=== PATIENT | male | born 1950 | race Asian ===

== ENCOUNTER 2017-11-23 20:00 | Inpatient (IN) | payer MEDICAID ==
[~2017-11-23] VITALS: Ht 185.4 cm; Wt 72.6 kg
[2017-11-23 20:25] VITALS: BP 140/85
--- NOTE | 2017-11-23 21:07 | Emergency Room Report ---
History of Present Illness General Chief Complaint: Abnormal Labs Source: Medical Record, EMS Present Illness HPI 67 yo M with trach to oxygen, peg tube, sent in for low h/h. pt nonverbal unable to provide hx. full code Allergies: Coded Allergies: No Known Allergies (Unverified , 11/23/17) Patient History Past Medical History: see triage record Past Surgical History: unable to obtain Pertinent Family History: unable to obtain Reviewed Nursing Documentation: PMH: Agreed, PSxH: Agreed Nursing Documentation-PMH Hx Hypertension: Yes Hx Diabetes: Yes Hx Gastrointestinal Problems: Yes - GASTROSTOMY Review of Systems All Other Systems: limited - nonverbal Physical Exam Vital Signs Date Time Temp Pulse Resp B/P (MAP) Pulse Ox O2 Delivery O2 Flow Rate FiO2 11/23/17 20:07 98.1 85 22 140/85 95 Trach Collar 4.0 Sp02 EP Interpretation: reviewed, normal General Appearance: other - nonverbal, not resp, Chronically Ill Head: normocephalic, atraumatic Eyes: bilateral eye normal inspection, bilateral eye PERRL, bilateral eye EOMI ENT: other - +trach Neck: other - +trach Respiratory: normal breath sounds Cardiovascular #1: normal inspection, regular rate, rhythm, normal capillary refill Cardiovascular #2: 2+ radial (R), 2+ radial (L) Gastrointestinal: other - +peg tube in place, soft abdomen Musculoskeletal: normal inspection, back normal, normal range of motion, non- tender Neurologic: other - not responsive Skin: normal inspection, normal color, no rash, warm/dry, well hydrated, normal turgor Medical Decision Making Diagnostic Impression: Primary Impression: Severe anemia Additional Impressions: Hypokalemia Pancreatitis Renal abscess ER Course 67-year-old male brought in for low H&H DDX: Anemia: Iron deficient, anemia of chronic disease, GI bleed Plan: Obtain labs, ua, EKG, CXR Type and screen and blood transfusion ER course: Patient transfused prbcs in ED potassium supplemented CT ordered for elevated lipase showed possible pyelonephritis with renal abscess cefepime given Disposition: Patient is to be admitted to tele D/W hospitalist Dr Valdovinos Please note that this Emergency Department Report was dictated using [employer] booth attendant technology software, occasionally this can lead to erroneous entry secondary to interpretation by the dictation equipment. EKG Diagnostic Results EP Interpretation: Yes Rate: normal Rhythm: NSR ST Segments: TWI V3 ASA given to patient: No Rhythm Strip EP Interpretation: Yes Rate: 80 Rhythm: NSR, no PVCs, no ectopy Chest X-ray CXR: Ordered: Yes 1 view Indication: ams EP interpretation: Yes Interpretation: No consolidation, no effusion, no PTX, no acute cardiopulmonary disease Impression: No acute disease Electronically signed by Pedro Mendez MD Laboratory Tests Test 11/23/17 21:00 White Blood Count 15.5 K/UL (4.8-10.8) H Red Blood Count 2.54 M/UL (4.70-6.10) L Hemoglobin 7.8 G/DL (14.2-18.0) L Hematocrit 26.2 % (42.0-52.0) L Mean Corpuscular Volume 103 FL (80-99) H Mean Corpuscular Hemoglobin 30.5 PG (27.0-31.0) Mean Corpuscular Hemoglobin Concent 29.7 G/DL (32.0-36.0) L Red Cell Distribution Width 14.5 % (11.6-14.8) Platelet Count 699 K/UL (150-450) H Mean Platelet Volume 5.6 FL (6.5-10.1) L Neutrophils (%) (Auto) % (45.0-75.0) Lymphocytes (%) (Auto) % (20.0-45.0) Monocytes (%) (Auto) % (1.0-10.0) Eosinophils (%) (Auto) % (0.0-3.0) Basophils (%) (Auto) % (0.0-2.0) Differential Total Cells Counted 100 Neutrophils % (Manual) 78 % (45-75) H Lymphocytes % (Manual) 11 % (20-45) L Monocytes % (Manual) 8 % (1-10) Eosinophils % (Manual) 1 % (0-3) Basophils % (Manual) 0 % (0-2) Band Neutrophils 2 % (0-8) Platelet Estimate Increased H Platelet Morphology Normal Red Blood Cell Morphology Hypochromasia 2+ Anisocytosis 1+ Macrocytosis 1+ Prothrombin Time 11.0 SEC (9.30-11.50) Prothrombin Time INR 1.1 (0.9-1.1) PTT 25 SEC (23-33) Sodium Level 146 MMOL/L (136-145) H Potassium Level 2.9 MMOL/L (3.5-5.1) L Chloride Level 104 MMOL/L (98-107) Carbon Dioxide Level 35 MMOL/L (21-32) H Anion Gap 7 mmol/L (5-15) Blood Urea Nitrogen 28 mg/dL (7-18) H Creatinine 0.8 MG/DL (0.55-1.30) Estimate Glomerular Filtration Rate > 60 mL/min (>60) Glucose Level 131 MG/DL (74-106) H Calcium Level 9.2 MG/DL (8.5-10.1) Total Bilirubin 0.3 MG/DL (0.2-1.0) Aspartate Amino Transferase (AST) 59 U/L (15-37) H Alanine Aminotransferase (ALT) 153 U/L (12-78) H Alkaline Phosphatase 85 U/L (46-116) Troponin I 0.015 ng/mL (0.000-0.056) Pro-B-Type Natriuretic Peptide 425 pg/mL (0-125) H Total Protein 8.7 G/DL (6.4-8.2) H Albumin 2.7 G/DL (3.4-5.0) L Globulin 6.0 g/dL Albumin/Globulin Ratio 0.5 (1.0-2.7) L Lipase 3689 U/L (73-393) H CT/MRI/US Diagnostic Results CT/MRI/US Diagnostic Results : Imaging Test Ordered: CT abdo pelvis Impression CT ABDOMEN & PELVIS With Contrast: There is a 4.1 x 3.0 cm fluid collection within the left kidney, with mild perinephric fat stranding as well as ureteral and renal pelvic wall thickening. Findings most likely represent an ascending left urinary tract infection with pyelonephritis and a renal abscess. Please correlate with urinalysis and site of patient's pain. Several small calculi seen within the distal right ureter, near the right ureterovesical junction. There is minimal right-sided hydroureter as well as right ureteral wall thickening. These calculi are likely only partially obstructing. Additional small calculi seen within the bladder lumen, with moderate bladder wall thickening. Findings suggest a chronic or acute cystitis. Gastrostomy tube in place, with the tip in the distal gastric lumen. There is no evidence of bowel obstruction. Normal appendix. Mild wall thickening of the sigmoid colon and rectum. Findings suggestive of a proctocolitis. If patient had recent fecal disimpaction, this could represent a residual stercoral colitis. Alternatively if the patient had prior radiation therapy to the pelvis findings could represent a residual radiation colitis. Please correlate with patient's history. Limited evaluation of lower chest shows mild airspace consolidation in the left lower lobe. This may represent an early pneumonia or due to severe aspiration. No pleural effusions. Last Vital Signs Date Time Temp Pulse Resp B/P (MAP) Pulse Ox O2 Delivery O2 Flow Rate FiO2 11/23/17 20:07 98.1 85 22 140/85 95 Trach Collar 4.0 Disposition: ADMITTED INPATIENT Condition: Serious Pedro Mendez M.D. Nov 23, 2017 21:07
[2017-11-23 21:44] LABS: HEMATOCRIT 26.2 % (42.0-52.0); HEMOGLOBIN 7.8 G/DL (14.2-18.0); MEAN CORPUSCULAR VOLUME 103 FL (80-99); PLATELET COUNT 699 K/UL (150-450); RED BLOOD COUNT 2.54 M/UL (4.70-6.10); RED CELL DISTRIBUTION WIDTH 14.5 % (11.6-14.8); WHITE BLOOD COUNT 15.5 K/UL (4.8-10.8)
[2017-11-23 21:48] LABS: ANION GAP 7 mmol/L (5-15); BLOOD UREA NITROGEN 28 mg/dL (7-18); CALCIUM 9.2 MG/DL (8.5-10.1); CARBON DIOXIDE 35 MMOL/L (21-32); CHLORIDE 104 MMOL/L (98-107); CREATININE 0.8 MG/DL (0.55-1.30); INR 1.1 (0.9-1.1); POTASSIUM 2.9 MMOL/L (3.5-5.1); SODIUM 146 MMOL/L (136-145)
[2017-11-23 21:59] LABS: ALANINE AMINOTRANSFERASE 153 U/L (12-78); ALBUMIN 2.7 G/DL (3.4-5.0); ALBUMIN/GLOBULIN RATIO 0.5 (1.0-2.7); ALKALINE PHOSPHATASE 85 U/L (46-116); ASPARTATE AMINO TRANSFERASE 59 U/L (15-37); BILIRUBIN,TOTAL 0.3 MG/DL (0.2-1.0)
[2017-11-23 23:20] VITALS: BP 114/88
[2017-11-24] MEDS ORDERED: Cefepime 2gm ONE (02:56)
[2017-11-24 03:00] VITALS: BP 138/91
[2017-11-24] MEDS ORDERED: Cefepime HCl 2 GM in D5W 55 ML IVPB ONE (03:00)
[2017-11-24] MEDS ORDERED: CLONIDINE HCL0.1 MG GT (05:26)
[2017-11-24] MEDS ORDERED: DULCOLAX10 MG RC (05:26)
[2017-11-24] MEDS ORDERED: AMLODIPINE BESY10 MG GT (05:26)
[2017-11-24] MEDS ORDERED: MOM30 ML GT (05:26)
[2017-11-24] MEDS ORDERED: HYDRALAZINE HCL50 MG GT (05:26)
[2017-11-24] MEDS ORDERED: ZOFRAN4 MG GT (05:26)
[2017-11-24] MEDS ORDERED: LOPRESSOR25 M1 GT (05:26)
[2017-11-24] MEDS ORDERED: Miralax 17gm pkt ORAL PRN (07:00)
[2017-11-24] MEDS ORDERED: Mylanta II UD 30ml ORAL PRN (07:00)
[2017-11-24] MEDS ORDERED: Nitroglycerin Subl 0.4mg tab SL PRN (07:00)
[2017-11-24] MEDS ORDERED: Morphine Sulfate 2mg/ml Inj IVP PRN (07:00)
[2017-11-24] MEDS ORDERED: LORazepam Inj 2mg/ml 1ml IV PRN (07:00)
[2017-11-24] MEDS: D5 1/2NS 1,000 ML IV SCH ×2 (07:30→20:40)
[2017-11-24 08:00] VITALS: BP 103/63
[2017-11-24] MEDS: Heparin 5000 units/ml inj SUBQ SCH ×2 (09:00→21:00)
--- NOTE | 2017-11-24 09:32 | Diagnostic Imaging Report ---
Indication: Abdominal pain Technique: CT of the abdomen and pelvis utilizing automated exposure control with intravenous contrast. Venous scanning performed. CT dose: Total DLP 992.06 mGycm; CTDI vol 16.82 mGy Comparison: None Findings: There is a trace left pleural effusion. There is airspace consolidation in the left lower lobe. There may be some tree-in-bud opacities also in the left pleural fluid although this is somewhat limited due to motion artifact. There is no pericardial effusion. Gallbladder is mildly distended but otherwise unremarkable in appearance. No pericholecystic inflammatory change to suggest an acute cholecystitis. Liver is unremarkable and single phase examination. Hepatic veins and portal veins appear patent. Spleen and adrenal glands unremarkable. Pancreas with some dense calcifications in the pancreatic head and body, likely sequela of prior infection/inflammation. There is a 4.1 x 3 cm fluid collection within the left kidney with mild to moderate left perinephric fat stranding as well as thickening/enhancement of the urothelium of the renal pelvis and proximal left ureter. Subcentimeter stones noted at the distal right ureter, near the right UVJ. There is minimal right-sided hydroureter as well as right ureteral wall thickening. Is no hydronephrosis on the right. Small stones are noted layering dependently within the bladder lumen. There is moderate bladder wall thickening. Prostate appears mildly prominent, mildly heterogeneous with coarse calcifications. Gastrostomy tube is in place. There is no bowel obstruction. No free intraperitoneal air. There is mild wall thickening of the sigmoid colon and rectum. There is trace presacral inflammatory change. Abdominal aorta is normal in caliber. There are multilevel degenerative changes of the spine. Impression: Significant left perinephric fat stranding with a focal 4 x 3 cm fluid collection in the lower pole of the left kidney. Findings are concerning for pyelonephritis with renal abscess. No obstructing urinary tract stone noted on the left. Multiple small stones noted layering dependently in the bladder, which has a moderately thickened wall. Subcentimeter stones in the right distal ureter at or near the UVJ with minimal right-sided ureteral thickening/hydroureter. No evidence of hydronephrosis on the right.. These right-sided stones may be only partially obstructing. Correlation with physical exam findings/clinical history and with urinalysis/urine culture commended. Thickening of the rectum and sigmoid with minimal presacral infiltrative change. Findings suggestive of a proctocolitis. If patient has had fecal disimpaction recently, this could represent sequela of residual stercoral colitis. Alternatively these could resent sequela of prior radiation to the pelvis. Please correlate clinically. No evidence of bowel obstruction or free intraperitoneal air. Limited evaluation of the lower chest due to motion. Airspace consolidation in the lower lobe with suggestion of tree-in-bud opacities. These findings could represent pneumonia or aspiration. Additional findings as above. This corresponds with the statrad preliminary report. The CT scanner at [facility] is accredited by the [employer] and the scans are performed using protocols designed to limit radiation exposure to as low as reasonably achievable to attain images of sufficient resolution adequate for diagnostic evaluation.
[2017-11-24] MEDS: HydrALAZINE 50mg tab GT SCH ×2 (10:34→20:41)
[2017-11-24] MEDS: Pantoprazole Inj IV SCH (10:35)
--- NOTE | 2017-11-24 11:12 | Diagnostic Imaging Report ---
Indication: Chest pain Technique: XRAY Chest 1v Comparison: None Findings: Heart size within normal limits. Mediastinal contours are sharp. Tracheostomy tube in place. There is patchy left basilar opacity with slight blunting of the left costophrenic sulcus. There is no pneumothorax. Degenerative changes are seen in the spine. No acute osseous abnormality noted. Impression: Left basilar opacities and possible trace left pleural effusion. Although findings may be related to subsegmental atelectasis, pneumonia not entirely excluded. Clinical correlation and follow-up exam recommended. Study obtained via the emergency department however patient admitted to hospital at the time of dictation of the final report.
--- NOTE | 2017-11-24 11:16 | History and Physical ---
History of Present Illness General Date patient seen: Nov 24, 2017 Reason for Hospitalization: Abnormal Labs Present Illness HPI 67 yo M with trach to oxygen, peg tube, sent in for low h/h. pt nonverbal unable to provide hx. full code. He had a CT scan in ER showing perinephric abscess. He is admitted to [facility] for further work up. Allergies: Coded Allergies: No Known Allergies (Unverified , 11/23/17) Medication History Scheduled Amlodipine Besylate* (Amlodipine Besylate*), 10 MG GT DAILY, (Reported) Hydralazine Hcl* (Hydralazine Hcl*), 50 MG GT BID, (Reported) Metoprolol Tartrate (Metoprolol Tartrate), 50 MG GT EVERY 12 HOURS, (Reported) Scheduled PRN Magnesium Hydroxide (Milk of Magnesia), 30 ML GT DAILY PRN for Constipation, ( Reported) Ondansetron (Zofran), 4 MG GT Q6HR PRN for Nausea & Vomiting, (Reported) Miscellaneous Medications Bisacodyl (Dulcolax), 10 MG RC, (Reported) Clonidine Hcl (Clonidine Hcl), 0.1 MG GT, (Reported) Patient History Healthcare decision maker Resuscitation status Full Code Advanced Directive on File Past Medical/Surgical History Past Medical/Surgical History: (1) Status post tracheostomy (2) Feeding by G-tube Review of Systems All Other Systems: negative except mentioned in HPI Physical Exam General Appearance: WD/WN Lines, tubes and drains: peripheral HEENT: normocephalic, atraumatic Neck: non-tender, normal alignment, supple Respiratory/Chest: chest wall non-tender, lungs clear Breasts: no masses Cardiovascular/Chest: normal peripheral pulses Abdomen: normal bowel sounds, soft Genitourinary/Rectal: normal genital exam Extremities: normal range of motion, non-pitting Neurologic: control clerk auditing II-XII grossly normal Last 24 Hour Vital Signs Date Time Temp Pulse Resp B/P (MAP) Pulse Ox O2 Delivery O2 Flow Rate FiO2 11/24/17 10:34 121/74 11/24/17 10:33 88 103/63 11/24/17 08:32 88 11/24/17 08:00 98.2 89 20 103/63 98 Trach Collar 4.0 89 11/24/17 05:27 99.1 90 20 145/80 98 Trach Collar 4.0 81 11/24/17 04:48 99.1 103 20 11/24/17 03:00 98.1 90 20 138/91 98 Trach Collar 4.0 81 11/23/17 23:20 81 18 114/88 98 Trach Collar 4.0 11/23/17 20:25 98.1 85 22 140/85 95 Trach Collar 4.0 11/23/17 20:07 98.1 85 22 140/85 95 Trach Collar 4.0 Intake and Output 11/23/17 11/24/17 19:00 07:00 Intake Total 50 ml Output Total 0 ml Balance 50 ml Intake Free Water 50 ml Output Urine Total 0 ml # Bowel Movements 2 Laboratory Tests Test 11/23/17 21:00 11/24/17 04:00 White Blood Count 15.5 K/UL (4.8-10.8) H Red Blood Count 2.54 M/UL (4.70-6.10) L Hemoglobin 7.8 G/DL (14.2-18.0) L Hematocrit 26.2 % (42.0-52.0) L Mean Corpuscular Volume 103 FL (80-99) H Mean Corpuscular Hemoglobin 30.5 PG (27.0-31.0) Mean Corpuscular Hemoglobin Concent 29.7 G/DL (32.0-36.0) L Red Cell Distribution Width 14.5 % (11.6-14.8) Platelet Count 699 K/UL (150-450) H Mean Platelet Volume 5.6 FL (6.5-10.1) L Neutrophils (%) (Auto) % (45.0-75.0) Lymphocytes (%) (Auto) % (20.0-45.0) Monocytes (%) (Auto) % (1.0-10.0) Eosinophils (%) (Auto) % (0.0-3.0) Basophils (%) (Auto) % (0.0-2.0) Differential Total Cells Counted 100 Neutrophils % (Manual) 78 % (45-75) H Lymphocytes % (Manual) 11 % (20-45) L Monocytes % (Manual) 8 % (1-10) Eosinophils % (Manual) 1 % (0-3) Basophils % (Manual) 0 % (0-2) Band Neutrophils 2 % (0-8) Platelet Estimate Increased H Platelet Morphology Normal Red Blood Cell Morphology Hypochromasia 2+ Anisocytosis 1+ Macrocytosis 1+ Prothrombin Time 11.0 SEC (9.30-11.50) Prothromb Time International Ratio 1.1 (0.9-1.1) Activated Partial Thromboplast Time 25 SEC (23-33) Sodium Level 146 MMOL/L (136-145) H Potassium Level 2.9 MMOL/L (3.5-5.1) L Chloride Level 104 MMOL/L (98-107) Carbon Dioxide Level 35 MMOL/L (21-32) H Anion Gap 7 mmol/L (5-15) Blood Urea Nitrogen 28 mg/dL (7-18) H Creatinine 0.8 MG/DL (0.55-1.30) Estimat Glomerular Filtration Rate > 60 mL/min (>60) Glucose Level 131 MG/DL (74-106) H Calcium Level 9.2 MG/DL (8.5-10.1) Total Bilirubin 0.3 MG/DL (0.2-1.0) Aspartate Amino Transf (AST/SGOT) 59 U/L (15-37) H Alanine Aminotransferase (ALT/SGPT) 153 U/L (12-78) H Alkaline Phosphatase 85 U/L (46-116) Troponin I 0.015 ng/mL (0.000-0.056) Pro-B-Type Natriuretic Peptide 425 pg/mL (0-125) H Total Protein 8.7 G/DL (6.4-8.2) H Albumin 2.7 G/DL (3.4-5.0) L Globulin 6.0 g/dL Albumin/Globulin Ratio 0.5 (1.0-2.7) L Lipase 3689 U/L (73-393) H Lactic Acid Level 1.50 mmol/L (0.66-2.22) Height (Feet): 6 Height (Inches): 1.00 Weight (Pounds): 160 Medications Current Medications Medications (Trade) Dose Ordered Sig/Sara Route PRN Reason Start Time Stop Time Status Last Admin Dose Admin Acetaminophen (Tylenol) 650 mg Q4H PRN ORAL fever (temp > 100.5F) 11/24/17 07:00 12/24/17 06:59 Al Hydroxide/Mg Hydroxide (Mylanta II) 30 ml Q6H PRN ORAL dyspepsia 11/24/17 07:00 12/24/17 06:59 Amlodipine Besylate (Norvasc) 10 mg DAILY GT 11/24/17 09:00 12/24/17 08:59 11/24/17 10:33 Clonidine HCl (Catapres Tab) 0.1 mg Q8H PRN GT SBP greater than 160 11/24/17 09:00 12/24/17 08:59 Dextrose (Dextrose 50%) STAT PRN IV Hypoglycemia 11/24/17 07:00 12/24/17 06:59 Dextrose/Sodium Chloride 1,000 ml @ 75 mls/hr [id number] IV 11/24/17 07:30 12/24/17 07:29 Diphenhydramine HCl (Benadryl) 25 mg Q6H PRN ORAL Itching/Pruritis 11/24/17 07:00 12/24/17 06:59 Heparin Sodium (Porcine) (Heparin 5000 units/ml) 5,000 units EVERY 12 HOURS SUBQ 11/24/17 09:00 12/24/17 08:59 Hydralazine HCl (Apresoline) 50 mg Q12HR GT 11/24/17 09:00 12/24/17 08:59 11/24/17 10:34 Lorazepam (Ativan 2mg/ml 1ml) 1 mg Q4H PRN IV agitation 11/24/17 07:00 12/01/17 06:59 Morphine Sulfate (Morphine Sulfate) 2 mg Q4H PRN IVP severe Pain (Pain Scale 7-10) 11/24/17 07:00 12/01/17 06:59 Nitroglycerin (Ntg) 0.4 mg Q5M X 3 DOSES PRN SL Prn Chest Pain 11/24/17 07:00 12/24/17 06:59 Ondansetron HCl (Zofran) 4 mg Q6H PRN IVP Nausea & Vomiting 11/24/17 07:00 12/24/17 06:59 Pantoprazole (Protonix) 40 mg DAILY IV 11/24/17 09:00 12/24/17 08:59 11/24/17 10:35 Polyethylene Glycol (Miralax) 17 gm HSPRN PRN ORAL Constipation 11/24/17 07:00 12/24/17 06:59 Promethazine HCl (Phenergan) 25 mg Q8H PRN IV refractory nausea 11/24/17 07:00 12/24/17 06:59 Temazepam (Restoril) 15 mg HSPRN PRN ORAL Insomnia 11/24/17 07:00 12/01/17 06:59 Assessment/Plan Problem List: (1) Renal abscess ICD Codes: N15.1 - Renal and perinephric abscess SNOMED: 5731392 (2) Hypokalemia ICD Codes: E87.6 - Hypokalemia SNOMED: 10103843 (3) Severe anemia ICD Codes: D64.9 - Anemia, unspecified SNOMED: 634560928 (4) Pancreatitis ICD Codes: K85.90 - Acute pancreatitis without necrosis or infection, unspecified SNOMED: 34889431 (5) Feeding by G-tube ICD Codes: Z93.1 - Gastrostomy status SNOMED: 326488056, 032988339 (6) Status post tracheostomy ICD Codes: Z93.0 - Tracheostomy status SNOMED: 39295523, 555169970 Respiratory: monitor respiratory rate, adjust FIO2, CXR Cardiac: continue pressors, continue to monitor HR/BP Renal: F/U I&O, keep IV fluid Infectious Disease: check cultures, continue antibiotics Gastrointestinal: continue feedings/current rate, hold feedings Endocrine: monitor blood sugar, check TSH, check HgA1C, continue sliding scale insulin Hematologic: monitor H/H, transfuse if hgb<8.5 Neurologic: PRN Morphine, keep patient comfortable Affect: PRN ativan Time Spent (Minutes): 40 Discussed with: nurses, consultants, family independence case manager ISELA LIM Nov 24, 2017 11:16
[2017-11-24 12:00] VITALS: BP 106/65
--- NOTE | 2017-11-24 12:38 | Consultation ---
History of Present Illness General Date patient seen: Nov 24, 2017 Time patient seen: 12:37 Chief Complaint: Abnormal Labs Present Illness HPI 67 y/o M with hx of HTN, chronic resp failure on trach, s/p PEG, non verbal is brought to ED on 11/23 with low hemoglobin. Found to have perinephric abscess. afebrile. leukocytosis up to 15.5 Allergies: Coded Allergies: No Known Allergies (Unverified , 11/23/17) Medication History Scheduled Amlodipine Besylate* (Amlodipine Besylate*), 10 MG GT DAILY, (Reported) Hydralazine Hcl* (Hydralazine Hcl*), 50 MG GT BID, (Reported) Metoprolol Tartrate (Metoprolol Tartrate), 50 MG GT EVERY 12 HOURS, (Reported) Scheduled PRN Magnesium Hydroxide (Milk of Magnesia), 30 ML GT DAILY PRN for Constipation, ( Reported) Ondansetron (Zofran), 4 MG GT Q6HR PRN for Nausea & Vomiting, (Reported) Miscellaneous Medications Bisacodyl (Dulcolax), 10 MG RC, (Reported) Clonidine Hcl (Clonidine Hcl), 0.1 MG GT, (Reported) Patient History Healthcare decision maker Resuscitation status Full Code Advanced Directive on File Patient History Narrative PHx: as above SH: unable to obtain Fhx: non contributory Review of Systems ROS Narrative unable to obtain Physical Exam Physical Exam Narrative General Appearance: WD/WN Lines, tubes and drains: peripheral HEENT: normocephalic, atraumatic Neck: non-tender, normal alignment, supple Respiratory/Chest: chest wall non-tender, lungs clear Breasts: no masses Cardiovascular/Chest: normal peripheral pulses Abdomen: normal bowel sounds, soft Extremities: normal range of motion, non-pitting Last 24 Hour Vital Signs Date Time Temp Pulse Resp B/P (MAP) Pulse Ox O2 Delivery O2 Flow Rate FiO2 11/24/17 10:34 121/74 11/24/17 10:33 88 103/63 11/24/17 08:32 88 11/24/17 08:00 98.2 89 20 103/63 98 Trach Collar 4.0 89 11/24/17 05:27 99.1 90 20 145/80 98 Trach Collar 4.0 81 11/24/17 04:48 99.1 103 20 11/24/17 03:00 98.1 90 20 138/91 98 Trach Collar 4.0 81 11/23/17 23:20 81 18 114/88 98 Trach Collar 4.0 11/23/17 20:25 98.1 85 22 140/85 95 Trach Collar 4.0 11/23/17 20:07 98.1 85 22 140/85 95 Trach Collar 4.0 Intake and Output 11/23/17 11/24/17 19:00 07:00 Intake Total 50 ml Output Total 0 ml Balance 50 ml Intake Free Water 50 ml Output Urine Total 0 ml # Bowel Movements 2 Laboratory Tests Test 11/23/17 21:00 11/24/17 04:00 White Blood Count 15.5 K/UL (4.8-10.8) H Red Blood Count 2.54 M/UL (4.70-6.10) L Hemoglobin 7.8 G/DL (14.2-18.0) L Hematocrit 26.2 % (42.0-52.0) L Mean Corpuscular Volume 103 FL (80-99) H Mean Corpuscular Hemoglobin 30.5 PG (27.0-31.0) Mean Corpuscular Hemoglobin Concent 29.7 G/DL (32.0-36.0) L Red Cell Distribution Width 14.5 % (11.6-14.8) Platelet Count 699 K/UL (150-450) H Mean Platelet Volume 5.6 FL (6.5-10.1) L Neutrophils (%) (Auto) % (45.0-75.0) Lymphocytes (%) (Auto) % (20.0-45.0) Monocytes (%) (Auto) % (1.0-10.0) Eosinophils (%) (Auto) % (0.0-3.0) Basophils (%) (Auto) % (0.0-2.0) Differential Total Cells Counted 100 Neutrophils % (Manual) 78 % (45-75) H Lymphocytes % (Manual) 11 % (20-45) L Monocytes % (Manual) 8 % (1-10) Eosinophils % (Manual) 1 % (0-3) Basophils % (Manual) 0 % (0-2) Band Neutrophils 2 % (0-8) Other Cell Type Pathologist comment Platelet Estimate Increased H Platelet Morphology Normal Red Blood Cell Morphology Hypochromasia 2+ Anisocytosis 1+ Macrocytosis 1+ Prothrombin Time 11.0 SEC (9.30-11.50) Prothromb Time International Ratio 1.1 (0.9-1.1) Activated Partial Thromboplast Time 25 SEC (23-33) Sodium Level 146 MMOL/L (136-145) H Potassium Level 2.9 MMOL/L (3.5-5.1) L Chloride Level 104 MMOL/L (98-107) Carbon Dioxide Level 35 MMOL/L (21-32) H Anion Gap 7 mmol/L (5-15) Blood Urea Nitrogen 28 mg/dL (7-18) H Creatinine 0.8 MG/DL (0.55-1.30) Estimat Glomerular Filtration Rate > 60 mL/min (>60) Glucose Level 131 MG/DL (74-106) H Calcium Level 9.2 MG/DL (8.5-10.1) Total Bilirubin 0.3 MG/DL (0.2-1.0) Aspartate Amino Transf (AST/SGOT) 59 U/L (15-37) H Alanine Aminotransferase (ALT/SGPT) 153 U/L (12-78) H Alkaline Phosphatase 85 U/L (46-116) Troponin I 0.015 ng/mL (0.000-0.056) Pro-B-Type Natriuretic Peptide 425 pg/mL (0-125) H Total Protein 8.7 G/DL (6.4-8.2) H Albumin 2.7 G/DL (3.4-5.0) L Globulin 6.0 g/dL Albumin/Globulin Ratio 0.5 (1.0-2.7) L Lipase 3689 U/L (73-393) H Lactic Acid Level 1.50 mmol/L (0.66-2.22) Height (Feet): 6 Height (Inches): 1.00 Weight (Pounds): 160 Medications Current Medications Medications (Trade) Dose Ordered Sig/Sara Route PRN Reason Start Time Stop Time Status Last Admin Dose Admin Acetaminophen (Tylenol) 650 mg Q4H PRN ORAL fever (temp > 100.5F) 11/24/17 07:00 12/24/17 06:59 Al Hydroxide/Mg Hydroxide (Mylanta II) 30 ml Q6H PRN ORAL dyspepsia 11/24/17 07:00 12/24/17 06:59 Amlodipine Besylate (Norvasc) 10 mg DAILY GT 11/24/17 09:00 12/24/17 08:59 11/24/17 10:33 Clonidine HCl (Catapres Tab) 0.1 mg Q8H PRN GT SBP greater than 160 11/24/17 09:00 12/24/17 08:59 Dextrose (Dextrose 50%) STAT PRN IV Hypoglycemia 11/24/17 07:00 12/24/17 06:59 Dextrose/Sodium Chloride 1,000 ml @ 75 mls/hr [id number] IV 11/24/17 07:30 12/24/17 07:29 11/24/17 07:30 Diphenhydramine HCl (Benadryl) 25 mg Q6H PRN ORAL Itching/Pruritis 11/24/17 07:00 12/24/17 06:59 Heparin Sodium (Porcine) (Heparin 5000 units/ml) 5,000 units EVERY 12 HOURS SUBQ 11/24/17 09:00 12/24/17 08:59 Hydralazine HCl (Apresoline) 50 mg Q12HR GT 11/24/17 09:00 12/24/17 08:59 11/24/17 10:34 Lorazepam (Ativan 2mg/ml 1ml) 1 mg Q4H PRN IV agitation 11/24/17 07:00 12/01/17 06:59 Morphine Sulfate (Morphine Sulfate) 2 mg Q4H PRN IVP severe Pain (Pain Scale 7-10) 11/24/17 07:00 12/01/17 06:59 Nitroglycerin (Ntg) 0.4 mg Q5M X 3 DOSES PRN SL Prn Chest Pain 11/24/17 07:00 12/24/17 06:59 Ondansetron HCl (Zofran) 4 mg Q6H PRN IVP Nausea & Vomiting 11/24/17 07:00 12/24/17 06:59 Pantoprazole (Protonix) 40 mg DAILY IV 11/24/17 09:00 12/24/17 08:59 11/24/17 10:35 Polyethylene Glycol (Miralax) 17 gm HSPRN PRN ORAL Constipation 11/24/17 07:00 12/24/17 06:59 Promethazine HCl (Phenergan) 25 mg Q8H PRN IV refractory nausea 11/24/17 07:00 12/24/17 06:59 Temazepam (Restoril) 15 mg HSPRN PRN ORAL Insomnia 11/24/17 07:00 12/01/17 06:59 Assessment/Plan Assessment/Plan Abx: IV Cefepime x1 11/24 Assessment: L pyelonephritis w/ abscess; ?proctocolitis- -CT abd/p: Significant left perinephric fat stranding with a focal 4 x 3 cm fluid collection in the lower pole of the left kidney. Findings are concerning for pyelonephritis with renal abscess. No obstructing urinary tract stone noted on the left. Multiple small stones noted layering dependently in the bladder, which has a moderately thickened wall. Subcentimeter stones in the right distal ureter at or near the UVJ with minimal right-sided ureteral thickening/hydroureter. No evidence of hydronephrosis on the right.. These right-sided stones may be only partially obstructing. Correlation with physical exam findings/clinical history and with urinalysis/urine culture commended. Thickening of the rectum and sigmoid with minimal presacral infiltrative change. Findings suggestive of a proctocolitis. If patient has had fecal disimpaction recently, this could represent sequela of residual stercoral colitis. Alternatively these could resent sequela of prior radiation to the pelvis. Please correlate clinically. No evidence of bowel obstruction or free intraperitoneal air. Airspace consolidation in the lower lobe with suggestion of tree-in-bud opacities. These findings could represent pneumonia or aspiration. -Bcx p -u/a p Possible PNA vs aspiration pneumonitis -CXR: Left basilar opacities and possible trace left pleural effusion. Although findings may be related to subsegmental atelectasis, pneumonia not entirely excluded. Leukocytosis- 2ry to above -afebrile Elevated lipase- ?pancreatitis -CT abd/p: Pancreas with some dense calcifications in the pancreatic head and body, likely sequela of prior infection/inflammation. HTN, chronic resp failure on trach, s/p PEG, non verbal Plan: -Start Zosyn for renal abscess and possible proctocolitis and PNA pending ucx -if worsening fevers, leukocytosis or resp status, add IV Vancomycin -IR drainage of L renal abscess -Uro consult -f/u cx -Monitor CBC/BMP, temperatures -obtain sputum cx -Aspiration precautions -Trach/peg care Thank you for this consultation. Will continue to follow along with you. Discussed with MANUEL. Yeimi Chanel M.D. Nov 24, 2017 12:38
--- NOTE | 2017-11-24 13:43 | GI Initial Consult Note ---
Radha Fournier N.P. 11/24/17 1343: History of Present Illness General Date patient seen: Nov 24, 2017 Time patient seen: 13:00 Reason for Hospitalization: Abnormal Labs Referring physician: ISELA RODRIGUEZ Reason for Consultation: ANEMiA Present Illness HPI 67 yo M with trach to oxygen, peg tube, sent in for low h/h. pt nonverbal unable to provide hx. full code GI consulted for anemia. HPI noted above. ROS limited, pt unable to provide any history. Seen on floor awake, NAD with active s/sx of N/V/D. GT present, C /D/I no erythema noted. CT AP reviewed, see full report, suggestive of proctocolitis. No evidence of bowel obstruction. Presents today with anemia low Hgb, transaminitis and pancreatitis. Unknown history of endoscopies / colonoscopies. Home Meds Reported Medications Ondansetron (Zofran) 4 Mg Tablet, 4 MG GT Q6HR Y for Nausea & Vomiting, #10 TAB 0 Refills 11/24/17 Magnesium Hydroxide (Milk of Magnesia) 400 Mg/5 Ml Oral.susp, 30 ML GT DAILY Y for Constipation, ML 11/24/17 Metoprolol Tartrate (Metoprolol Tartrate) 25 Mg Tablet, 50 MG GT EVERY 12 HOURS , TAB 11/24/17 Hydralazine Hcl* (HYDRALAZINE HCL*) 50 Mg Tablet, 50 MG GT BID, TAB 11/24/17 Bisacodyl (DULCOLAX) 10 Mg Supp.rect, 10 MG RC, SUPP 11/24/17 Clonidine Hcl (CLONIDINE HCL) 0.1 Mg Tablet, 0.1 MG GT, TAB 11/24/17 Amlodipine Besylate* (AMLODIPINE BESYLATE*) 10 Mg Tablet, 10 MG GT DAILY, TAB 11/24/17 Med list reviewed/reconciled: Yes Allergies: Coded Allergies: No Known Allergies (Unverified , 11/23/17) Patient History Limited by: medical condition History Provided By: Medical Record PMH Narrative Past Medical History: see triage record Past Surgical History: unable to obtain Pertinent Family History: unable to obtain Reviewed Nursing Documentation: PMH: Agreed, PSxH: Agreed Nursing Documentation-PMH Hx Hypertension: Yes Hx Diabetes: Yes Hx Gastrointestinal Problems: Yes - GASTROSTOMY Social History: Denies: smoking, alcohol use, drug use, other Review of Systems All Other Systems: limited Physical Exam Vital Signs Date Time Temp Pulse Resp B/P (MAP) Pulse Ox O2 Delivery O2 Flow Rate FiO2 11/23/17 20:07 98.1 85 22 140/85 95 Trach Collar 4.0 Sp02 EP Interpretation: reviewed Labs Laboratory Tests Test 11/23/17 21:00 11/24/17 04:00 White Blood Count 15.5 K/UL (4.8-10.8) H Red Blood Count 2.54 M/UL (4.70-6.10) L Hemoglobin 7.8 G/DL (14.2-18.0) L Hematocrit 26.2 % (42.0-52.0) L Mean Corpuscular Volume 103 FL (80-99) H Mean Corpuscular Hemoglobin 30.5 PG (27.0-31.0) Mean Corpuscular Hemoglobin Concent 29.7 G/DL (32.0-36.0) L Red Cell Distribution Width 14.5 % (11.6-14.8) Platelet Count 699 K/UL (150-450) H Mean Platelet Volume 5.6 FL (6.5-10.1) L Neutrophils (%) (Auto) % (45.0-75.0) Lymphocytes (%) (Auto) % (20.0-45.0) Monocytes (%) (Auto) % (1.0-10.0) Eosinophils (%) (Auto) % (0.0-3.0) Basophils (%) (Auto) % (0.0-2.0) Differential Total Cells Counted 100 Neutrophils % (Manual) 78 % (45-75) H Lymphocytes % (Manual) 11 % (20-45) L Monocytes % (Manual) 8 % (1-10) Eosinophils % (Manual) 1 % (0-3) Basophils % (Manual) 0 % (0-2) Band Neutrophils 2 % (0-8) Other Cell Type Pathologist comment Platelet Estimate Increased H Platelet Morphology Normal Red Blood Cell Morphology Hypochromasia 2+ Anisocytosis 1+ Macrocytosis 1+ Prothrombin Time 11.0 SEC (9.30-11.50) Prothromb Time International Ratio 1.1 (0.9-1.1) Activated Partial Thromboplast Time 25 SEC (23-33) Sodium Level 146 MMOL/L (136-145) H Potassium Level 2.9 MMOL/L (3.5-5.1) L Chloride Level 104 MMOL/L (98-107) Carbon Dioxide Level 35 MMOL/L (21-32) H Anion Gap 7 mmol/L (5-15) Blood Urea Nitrogen 28 mg/dL (7-18) H Creatinine 0.8 MG/DL (0.55-1.30) Estimat Glomerular Filtration Rate > 60 mL/min (>60) Glucose Level 131 MG/DL (74-106) H Calcium Level 9.2 MG/DL (8.5-10.1) Total Bilirubin 0.3 MG/DL (0.2-1.0) Aspartate Amino Transf (AST/SGOT) 59 U/L (15-37) H Alanine Aminotransferase (ALT/SGPT) 153 U/L (12-78) H Alkaline Phosphatase 85 U/L (46-116) Troponin I 0.015 ng/mL (0.000-0.056) Pro-B-Type Natriuretic Peptide 425 pg/mL (0-125) H Total Protein 8.7 G/DL (6.4-8.2) H Albumin 2.7 G/DL (3.4-5.0) L Globulin 6.0 g/dL Albumin/Globulin Ratio 0.5 (1.0-2.7) L Lipase 3689 U/L (73-393) H Lactic Acid Level 1.50 mmol/L (0.66-2.22) General Appearance: no apparent distress Head: normocephalic EENT: normal ENT inspection Neck: supple Respiratory: other - trached Cardiovascular: normal rate Gastrointestinal: gt - c/d/i Rectal: deferred Neurologic: alert Skin: normal inspection, normal color, no rash, warm/dry Lymphatic: normal inspection, no adenopathy Current Medications Current Medications Medications (Trade) Dose Ordered Sig/Sara Route PRN Reason Start Time Stop Time Status Last Admin Dose Admin Acetaminophen (Tylenol) 650 mg Q4H PRN ORAL fever (temp > 100.5F) 11/24/17 07:00 12/24/17 06:59 Al Hydroxide/Mg Hydroxide (Mylanta II) 30 ml Q6H PRN ORAL dyspepsia 11/24/17 07:00 12/24/17 06:59 Amlodipine Besylate (Norvasc) 10 mg DAILY GT 11/24/17 09:00 12/24/17 08:59 11/24/17 10:33 Clonidine HCl (Catapres Tab) 0.1 mg Q8H PRN GT SBP greater than 160 11/24/17 09:00 12/24/17 08:59 Dextrose (Dextrose 50%) STAT PRN IV Hypoglycemia 11/24/17 07:00 12/24/17 06:59 Dextrose/Sodium Chloride 1,000 ml @ 75 mls/hr [id number] IV 11/24/17 07:30 12/24/17 07:29 11/24/17 07:30 Diphenhydramine HCl (Benadryl) 25 mg Q6H PRN ORAL Itching/Pruritis 11/24/17 07:00 12/24/17 06:59 Heparin Sodium (Porcine) (Heparin 5000 units/ml) 5,000 units EVERY 12 HOURS SUBQ 11/24/17 09:00 12/24/17 08:59 Hydralazine HCl (Apresoline) 50 mg Q12HR GT 11/24/17 09:00 12/24/17 08:59 11/24/17 10:34 Lorazepam (Ativan 2mg/ml 1ml) 1 mg Q4H PRN IV agitation 11/24/17 07:00 12/01/17 06:59 Morphine Sulfate (Morphine Sulfate) 2 mg Q4H PRN IVP severe Pain (Pain Scale 7-10) 11/24/17 07:00 12/01/17 06:59 Nitroglycerin (Ntg) 0.4 mg Q5M X 3 DOSES PRN SL Prn Chest Pain 11/24/17 07:00 12/24/17 06:59 Ondansetron HCl (Zofran) 4 mg Q6H PRN IVP Nausea & Vomiting 11/24/17 07:00 12/24/17 06:59 Pantoprazole (Protonix) 40 mg DAILY IV 11/24/17 09:00 12/24/17 08:59 11/24/17 10:35 Piperacillin Sod/ Tazobactam Sod 4.5 gm/Sodium Chloride 110 ml @ 27.5 mls/hr EVERY 8 HOURS IVPB 11/24/17 14:00 11/29/17 13:59 Polyethylene Glycol (Miralax) 17 gm HSPRN PRN ORAL Constipation 11/24/17 07:00 2 06:59 Promethazine HCl (Phenergan) 25 mg Q8H PRN IV refractory nausea 11/24/17 07:00 12/24/17 06:59 Temazepam (Restoril) 15 mg HSPRN PRN ORAL Insomnia 11/24/17 07:00 12/01/17 06:59 GI: Plan Problems: (1) Feeding by G-tube (2) Severe anemia (3) Pancreatitis Plan CT AP reviewed, see full report. >> suggestive of a proctocolitis. No evidence of bowel obstruction or free intraperitoneal air. elevated lipase >> +3000 anemia work up >> will consider GI procedures if indicated OB stool r/o GI bleed monitor H&H, prn transfusions bowel rest >> NPO + IVFs bowel regime >> colace + miralax ppi fu labs, lipid panel Discussed with Dr. Waller. Thank you for this patient referral, we will follow. MELANIA WALLER 11/25/17 0752: History of Present Illness General Reason for Hospitalization: Abnormal Labs Present Illness Home Meds Reported Medications Ondansetron (Zofran) 4 Mg Tablet, 4 MG GT Q6HR Y for Nausea & Vomiting, #10 TAB 0 Refills 11/24/17 Magnesium Hydroxide (Milk of Magnesia) 400 Mg/5 Ml Oral.susp, 30 ML GT DAILY Y for Constipation, ML 11/24/17 Metoprolol Tartrate (Metoprolol Tartrate) 25 Mg Tablet, 50 MG GT EVERY 12 HOURS , TAB 11/24/17 Hydralazine Hcl* (HYDRALAZINE HCL*) 50 Mg Tablet, 50 MG GT BID, TAB 11/24/17 Bisacodyl (DULCOLAX) 10 Mg Supp.rect, 10 MG RC, SUPP 11/24/17 Clonidine Hcl (CLONIDINE HCL) 0.1 Mg Tablet, 0.1 MG GT, TAB 11/24/17 Amlodipine Besylate* (AMLODIPINE BESYLATE*) 10 Mg Tablet, 10 MG GT DAILY, TAB 11/24/17 Allergies: Coded Allergies: No Known Allergies (Unverified , 11/23/17) GI: Plan Plan The patient was seen and examined at bedside and all new and available data was reviewed in the patients chart. I agree with the above findings, impression and plan. (Patient seen earlier today. Signature stamp does not reflect patient encounter time.). - MD Irlanda Barnes Anh [facility] Nov 24, 2017 13:43 MELANIA WALLER Nov 25, 2017 07:52
[2017-11-24] MEDS: Piperacillin/Tazobactam 4.5 GM in NS 110 ML IVPB SCH ×2 (14:33→22:35)
[2017-11-24 16:00] VITALS: BP 127/75
[2017-11-24 17:42] LABS: APPEARANCE,URINE CLEAR; BILIRUBIN, URINE NEGATIVE (NEGATIVE); GLUCOSE, URINE (UA) NEGATIVE (NEGATIVE); KETONES,URINE NEGATIVE (NEGATIVE); LEUKOCYTE ESTERASE ,URINE 3+ (NEGATIVE); NITRITE,URINE POSITIVE (NEGATIVE); PH,URINE 7 (4.5-8.0); PROTEIN,URINE 2+ (NEGATIVE); UROBILINOGEN,URINE NORMAL MG/DL (0.0-1.0)
--- NOTE | 2017-11-24 17:42 | Diagnostic Imaging Report ---
Indication: Abdominal Technique: Multiplanar grayscale and color Doppler imaging of the abdomen Comparison: Correlation made to concurrent abdominal CT Findings: Limited evaluation given body habitus and inability to cooperate with positioning. Pancreas, spleen and aorta are not well seen due to habitus or overlying bowel gas. Portions of the PEG tube partially visualized. Right lower liver measures 15 cm. Hepatic echogenicity is homogeneous. Gallbladder is mildly distended. Gallbladder wall within normal limits for thickness. No pericholecystic fluid. Common bile duct measures 7.7 mm diameter. No appreciable intrahepatic biliary duct dilatation. Right kidney has some small simple renal cysts. Parenchymal echogenicity is within normal limits. Vague hypodensity in the lower pole the left kidney measuring 4.4 x 3.2 cm noted. This corresponds with the abnormality noted on CT. There may be some slight vascularity/hyperemia in this region. Impression: Limited evaluation due to patient body habitus and inability to cooperate with exam positioning. Vague hypodensity in the lower pole the left kidney measuring up to 4.4 cm corresponding to the region of the suspected renal abscess seen on CT.
[2017-11-24 17:43] LABS: COLOR,URINE YELLOW
[2017-11-24 20:00] VITALS: BP 136/77
--- NOTE | 2017-11-24 20:31 | Wound Care Consultation ---
Wound Assessment Wound Assessment : Wound Number: 1 Wound Present on Admission: Yes New Wound: No Status Change of Wound: No Wound Location Body Site Modif: mid Wound Location Body Site: other - sacrococcygeal Wound Type: pressure ulcer Mary Test: Does not Mary Pressure Ulcer Stage: Unstageable Wound Thickness: Full Thickness Wound Length: 10.0 Wound Width: 8.5 Wound Depth: utd Percent of Wound [place]/Red: 30 Percent of Wound Bed Yellow/Wh: 50 Percent of Wound Purple/Maroon: 20 Wound Drainage Description: Serosanguineous Wound Drainage Amount: Moderate Wound Drainage Odor: None/Absent Tissue Surrounding Wound: Macerated Wound General Appearance: Reddened - yellow,maroon Wound Comment #1 Sacrococcygeal unstageable pressure ulcer Recommendation -Local wound care per protocol -Keep clean and dry -Turn and reposition -Optimize nutrition -Heel protector on both heels -Offload both heels -Low air loss P200 mattress -Assess and f/u accordingly for any changes RASHEED LOCKWOOD RN Nov 24, 2017 20:31
--- NOTE | 2017-11-24 23:01 | Consultation ---
DATE OF CONSULTATION: 11/24/2017 REASON FOR CONSULTATION: Left pyelonephritis with possible abscess. HISTORY OF PRESENT ILLNESS: The patient is a 67-year-old male with history of hypertension and chronic respiratory failure with a PEG on the trach. He had a CT scan done in the ER that shows left possible perinephric abscess with left nephronia. He was admitted to the hospital because of his mental status and also respiratory status. I was not able to obtain his medical history or review of symptoms. He is on magnesium hydroxide and Zofran. PAST MEDICAL HISTORY: Please refer to the records. PAST SURGICAL HISTORY: Unable to obtain. FAMILY HISTORY: Unable to obtain. PHYSICAL EXAMINATION: GENERAL: He is afebrile. VITAL SIGNS: Stable. ABDOMEN: Soft and nontender. No significant CVA tenderness. Suprapubic area is intact. RECTAL: Negative. NEUROLOGIC: As above. LABORATORY AND DIAGNOSTIC DATA: CT scan was reviewed as well as the report showing fluid collection approximately 3 cm in the lower pole of the left kidney, no evidence of obstructing stone, some small stones in the bladder, as well as possible microlith in the right ureter without hydronephrosis. Laboratory data was also reviewed showing white count of 15, hematocrit is 26.2. Creatinine is 0.8. ASSESSMENT AND PLAN: The patient has left pyelonephritis. I would recommend intravenous antibiotics. No surgical intervention at this point. We will follow this patient with you and we will follow his white count as well as his overall status. Jaswant Joyce M.D. DR: RONALDO JOB#: [id number] CC:
[2017-11-25] VITALS (8 sets, daily range): BP systolic 132–145; BP diastolic 73–81
[2017-11-25 05:37] LABS: BASOPHILS % (AUTO) 0.4 % (0.0-2.0); EOSINOPHILS % (AUTO) 0.4 % (0.0-3.0); HEMATOCRIT 29.4 % (42.0-52.0); HEMOGLOBIN 9.5 G/DL (14.2-18.0); LYMPHOCYTES % (AUTO) 10.8 % (20.0-45.0); MEAN CORPUSCULAR VOLUME 96 FL (80-99); MONOCYTES % (AUTO) 5.1 % (1.0-10.0); NEUTROPHILS % (AUTO) 83.4 % (45.0-75.0); PLATELET COUNT 568 K/UL (150-450); RED BLOOD COUNT 3.07 M/UL (4.70-6.10); RED CELL DISTRIBUTION WIDTH 17.1 % (11.6-14.8)
[2017-11-25] MEDS: Piperacillin/Tazobactam 4.5 GM in NS 110 ML IVPB SCH ×3 (05:40→20:44)
[2017-11-25 05:51] LABS: ALANINE AMINOTRANSFERASE 79 U/L (12-78); ALBUMIN 2.5 G/DL (3.4-5.0); ALBUMIN/GLOBULIN RATIO 0.5 (1.0-2.7); ALKALINE PHOSPHATASE 73 U/L (46-116); AMYLASE 51 U/L (25-115); ANION GAP 8 mmol/L (5-15); ASPARTATE AMINO TRANSFERASE 21 U/L (15-37); BILIRUBIN,TOTAL 0.6 MG/DL (0.2-1.0); BLOOD UREA NITROGEN 21 mg/dL (7-18); CALCIUM 8.8 MG/DL (8.5-10.1); CARBON DIOXIDE 32 MMOL/L (21-32); CHLORIDE 110 MMOL/L (98-107); CREATININE 0.8 MG/DL (0.55-1.30); SODIUM 151 MMOL/L (136-145)
[2017-11-25 06:02] LABS: INR 1.2 (0.9-1.1)
[2017-11-25 06:04] LABS: % IRON SATURATION 14 % (15-50); IRON 24 ug/dL (50-175); TOTAL IRON BINDING CAPACITY 173 ug/dL (250-450)
[2017-11-25 06:19] LABS: POTASSIUM 2.3 MMOL/L (3.5-5.1)
[2017-11-25 06:20] LABS: CHOLESTEROL 121 MG/DL (< 200); FERRITIN 466 NG/ML (8-388); HDL CHOLESTEROL 27 MG/DL (40-60); TRIGLYCERIDES 131 MG/DL (30-150)
[2017-11-25] MEDS: Heparin 5000 units/ml inj SUBQ SCH ×2 (08:24→20:47)
[2017-11-25] MEDS: Pantoprazole Inj IV SCH (08:24)
[2017-11-25] MEDS: HydrALAZINE 50mg tab GT SCH ×2 (08:24→20:44)
[2017-11-25] MEDS: D5 1/2NS 1,000 ML IV SCH (09:51)
--- NOTE | 2017-11-25 12:03 | Diagnostic Imaging Report ---
Indication: Dyspnea Comparison: 11/23/2017 A single view chest radiograph was obtained. Findings: Tracheostomy again noted. Heart size is normal. Minimal basilar atelectasis demonstrated. Bones are osteopenic. IMPRESSION: Mild basal atelectasis
--- NOTE | 2017-11-25 12:54 | Pulmonolgy Critical Care Note ---
Critical Care - Asmt/Plan Problems: (1) Pyelonephritis (2) Severe anemia (3) Feeding by G-tube (4) Status post tracheostomy Critical Care - Objective Last 24 Hour Vital Signs Date Time Temp Pulse Resp B/P (MAP) Pulse Ox O2 Delivery O2 Flow Rate FiO2 11/25/17 08:24 138/78 11/25/17 08:24 92 138/78 11/25/17 08:00 98.5 92 19 138/78 99 T-piece 40 11/25/17 08:00 89 11/25/17 07:41 98 T-piece 10.0 40 11/25/17 07:41 T-piece 10.0 40 11/25/17 04:00 99.6 88 20 138/74 99 T-piece 11/25/17 04:00 87 11/25/17 01:47 99.8 11/25/17 01:24 98 T-piece 10.0 40 11/25/17 01:23 T-piece 10.0 40 11/25/17 00:59 101.0 108 28 132/73 96 T-piece 11/25/17 00:00 101.0 108 28 132/73 96 T-piece 11/25/17 00:00 115 11/24/17 20:41 149/79 11/24/17 20:25 96 T-piece 10.0 40 11/24/17 20:25 T-piece 10.0 40 11/24/17 20:00 102 11/24/17 20:00 99.1 102 24 136/77 98 T-piece 11/24/17 16:00 99.0 98 20 127/75 98 Trach Collar 4.0 11/24/17 15:27 94 Status: awake Condition: critical, grave Lungs: clear, chest wall tender Heart: HR/BP stable, HR/BP unstable, regular Abdomen: soft, non-tender, active bowel sounds Extremities: edema Micro: Microbiology Date/Time Source Procedure Growth Status 11/24/17 04:01 Blood Blood Culture - Preliminary NO GROWTH AFTER 24 HOURS Resulted 11/24/17 04:01 Blood Blood Culture - Preliminary NO GROWTH AFTER 24 HOURS Resulted 11/24/17 15:00 Sputum Induced Gram Stain Pending Resulted 11/24/17 15:00 Sputum Induced Sputum Culture - Preliminary Resulted 11/24/17 04:30 Rectum VRE Culture - Final Enterococcus Faecalis - Vre Complete Critical Care - Subjective ROS Limited/Unobtainable: No Interval Events: No GI bleeding, now has diarrhia Condition: critical EKG Rhythm: Sinus Rhythm FI02: 40 Fluids: NS 75 cc. hour I&O: Intake and Output 11/24/17 11/25/17 19:00 07:00 Intake Total 635.0 ml 1537.5 ml Output Total 601 ml 801 ml Balance 34.0 ml 736.5 ml Intake Free Water 50 ml 650 ml IV Total 335.0 ml 887.5 ml Blood Product 250 ml Output Urine Total 600 ml 800 ml Stool Total 1 ml 1 ml # Bowel Movements 3 1 CXR: no change Labs: Laboratory Tests Test 11/24/17 16:50 11/24/17 17:00 11/25/17 04:20 Stool Occult Blood Negative (NEGATIVE) Urine Color Yellow Urine Appearance Clear Urine pH 7 (4.5-8.0) Urine Specific [place] 1.010 (1.005-1.035) Urine Protein 2+ (NEGATIVE) H Urine Glucose (UA) Negative (NEGATIVE) Urine Ketones Negative (NEGATIVE) Urine Occult Blood 2+ (NEGATIVE) H Urine Nitrite Positive (NEGATIVE) H Urine Bilirubin Negative (NEGATIVE) Urine Urobilinogen Normal MG/DL (0.0-1.0) Urine Leukocyte Esterase 3+ (NEGATIVE) H Urine RBC 2-4 /HPF (0 - 0) H Urine WBC 5-10 /HPF (0 - 0) H Urine Squamous Epithelial Cells None /LPF (NONE/OCC) Urine Amorphous Sediment Few /LPF (NONE) H Urine Bacteria Few /HPF (NONE) White Blood Count 13.0 K/UL (4.8-10.8) H Red Blood Count 3.07 M/UL (4.70-6.10) L Hemoglobin 9.5 G/DL (14.2-18.0) L Hematocrit 29.4 % (42.0-52.0) L Mean Corpuscular Volume 96 FL (80-99) Mean Corpuscular Hemoglobin 30.9 PG (27.0-31.0) Mean Corpuscular Hemoglobin Concent 32.3 G/DL (32.0-36.0) Red Cell Distribution Width 17.1 % (11.6-14.8) H Platelet Count 568 K/UL (150-450) H Mean Platelet Volume 6.2 FL (6.5-10.1) L Neutrophils (%) (Auto) 83.4 % (45.0-75.0) H Lymphocytes (%) (Auto) 10.8 % (20.0-45.0) L Monocytes (%) (Auto) 5.1 % (1.0-10.0) Eosinophils (%) (Auto) 0.4 % (0.0-3.0) Basophils (%) (Auto) 0.4 % (0.0-2.0) Reticulocyte Count Pending Prothrombin Time 12.4 SEC (9.30-11.50) H Prothromb Time International Ratio 1.2 (0.9-1.1) H Activated Partial Thromboplast Time 31 SEC (23-33) Sodium Level 151 MMOL/L (136-145) H Potassium Level 2.3 MMOL/L (3.5-5.1) *L Chloride Level 110 MMOL/L (98-107) H Carbon Dioxide Level 32 MMOL/L (21-32) Anion Gap 8 mmol/L (5-15) Blood Urea Nitrogen 21 mg/dL (7-18) H Creatinine 0.8 MG/DL (0.55-1.30) Estimat Glomerular Filtration Rate > 60 mL/min (>60) Glucose Level 147 MG/DL (74-106) H Calcium Level 8.8 MG/DL (8.5-10.1) Iron Level 24 ug/dL (50-175) L Total Iron Binding Capacity 173 ug/dL (250-450) L Percent Iron Saturation 14 % (15-50) L Unsaturated Iron Binding 149 ug/dL (112-346) Ferritin 466 NG/ML (8-388) H Total Bilirubin 0.6 MG/DL (0.2-1.0) Aspartate Amino Transf (AST/SGOT) 21 U/L (15-37) Alanine Aminotransferase (ALT/SGPT) 79 U/L (12-78) H Alkaline Phosphatase 73 U/L (46-116) Pro-B-Type Natriuretic Peptide 446 pg/mL (0-125) H Total Protein 7.9 G/DL (6.4-8.2) Albumin 2.5 G/DL (3.4-5.0) L Globulin 5.4 g/dL Albumin/Globulin Ratio 0.5 (1.0-2.7) L Triglycerides Level 131 MG/DL (30-150) Cholesterol Level 121 MG/DL (< 200) LDL Cholesterol 75 mg/dL (<100) HDL Cholesterol 27 MG/DL (40-60) L Cholesterol/HDL Ratio 4.5 (3.3-4.4) H Amylase Level 51 U/L (25-115) Lipase 189 U/L (73-393) Vitamin B12 Level 1198 PG/ML (193-986) H Folate 19.9 NG/ML (8.6-58.9) Thyroid Stimulating Hormone (TSH) 0.062 uiU/mL (0.358-3.740) Free Thyroxine 1.20 NG/DL (0.76-1.46) ISELA LIM Nov 25, 2017 12:54
--- NOTE | 2017-11-25 13:15 | GI Progress Note ---
Assessment/Plan Problems: (1) Feeding by G-tube ICD Codes: Z93.1 - Gastrostomy status SNOMED: 598484527, 740965094 (2) Severe anemia ICD Codes: D64.9 - Anemia, unspecified SNOMED: 457462063 (3) Pancreatitis ICD Codes: K85.90 - Acute pancreatitis without necrosis or infection, unspecified SNOMED: 92606973 Status: stable Status Narrative Discussed with Dr. Mercedes. Assessment/Plan CT AP reviewed, see full report. >> suggestive of a proctocolitis. No evidence of bowel obstruction or free intraperitoneal air. abdominal U/S reviewed, see full report >> renal abscess elevated lipase >> +3000 >> now normal lipid panel for pancreatitis unremarkable OB stool r/o GI bleed >> negative anemia work up >> will consider GI procedures if indicated start venofer monitor H&H, prn transfusions restart GTFs bowel regime >> colace + miralax ppi fu labs Subjective Gastrointestinal/Abdominal: Reports: no symptoms Objective Last 24 Hour Vital Signs Date Time Temp Pulse Resp B/P (MAP) Pulse Ox O2 Delivery O2 Flow Rate FiO2 11/25/17 12:00 98.7 88 18 138/76 99 T-piece 40 11/25/17 08:24 138/78 11/25/17 08:24 92 138/78 11/25/17 08:00 98.5 92 19 138/78 99 T-piece 40 11/25/17 08:00 89 11/25/17 07:41 98 T-piece 10.0 40 11/25/17 07:41 T-piece 10.0 40 11/25/17 04:00 99.6 88 20 138/74 99 T-piece 11/25/17 04:00 87 11/25/17 01:47 99.8 11/25/17 01:24 98 T-piece 10.0 40 11/25/17 01:23 T-piece 10.0 40 11/25/17 00:59 101.0 108 28 132/73 96 T-piece 11/25/17 00:00 101.0 108 28 132/73 96 T-piece 11/25/17 00:00 115 11/24/17 20:41 149/79 11/24/17 20:25 96 T-piece 10.0 40 11/24/17 20:25 T-piece 10.0 40 11/24/17 20:00 102 11/24/17 20:00 99.1 102 24 136/77 98 T-piece 11/24/17 16:00 99.0 98 20 127/75 98 Trach Collar 4.0 11/24/17 15:27 94 Intake and Output 11/24/17 11/25/17 19:00 07:00 Intake Total 635.0 ml 1537.5 ml Output Total 601 ml 801 ml Balance 34.0 ml 736.5 ml Intake Free Water 50 ml 650 ml IV Total 335.0 ml 887.5 ml Blood Product 250 ml Output Urine Total 600 ml 800 ml Stool Total 1 ml 1 ml # Bowel Movements 3 1 Laboratory Tests Test 11/24/17 16:50 11/24/17 17:00 11/25/17 04:20 Stool Occult Blood Negative (NEGATIVE) Urine Color Yellow Urine Appearance Clear Urine pH 7 (4.5-8.0) Urine Specific [place] 1.010 (1.005-1.035) Urine Protein 2+ (NEGATIVE) H Urine Glucose (UA) Negative (NEGATIVE) Urine Ketones Negative (NEGATIVE) Urine Occult Blood 2+ (NEGATIVE) H Urine Nitrite Positive (NEGATIVE) H Urine Bilirubin Negative (NEGATIVE) Urine Urobilinogen Normal MG/DL (0.0-1.0) Urine Leukocyte Esterase 3+ (NEGATIVE) H Urine RBC 2-4 /HPF (0 - 0) H Urine WBC 5-10 /HPF (0 - 0) H Urine Squamous Epithelial Cells None /LPF (NONE/OCC) Urine Amorphous Sediment Few /LPF (NONE) H Urine Bacteria Few /HPF (NONE) White Blood Count 13.0 K/UL (4.8-10.8) H Red Blood Count 3.07 M/UL (4.70-6.10) L Hemoglobin 9.5 G/DL (14.2-18.0) L Hematocrit 29.4 % (42.0-52.0) L Mean Corpuscular Volume 96 FL (80-99) Mean Corpuscular Hemoglobin 30.9 PG (27.0-31.0) Mean Corpuscular Hemoglobin Concent 32.3 G/DL (32.0-36.0) Red Cell Distribution Width 17.1 % (11.6-14.8) H Platelet Count 568 K/UL (150-450) H Mean Platelet Volume 6.2 FL (6.5-10.1) L Neutrophils (%) (Auto) 83.4 % (45.0-75.0) H Lymphocytes (%) (Auto) 10.8 % (20.0-45.0) L Monocytes (%) (Auto) 5.1 % (1.0-10.0) Eosinophils (%) (Auto) 0.4 % (0.0-3.0) Basophils (%) (Auto) 0.4 % (0.0-2.0) Reticulocyte Count 2.7 % (0.0-2.0) H Prothrombin Time 12.4 SEC (9.30-11.50) H Prothromb Time International Ratio 1.2 (0.9-1.1) H Activated Partial Thromboplast Time 31 SEC (23-33) Sodium Level 151 MMOL/L (136-145) H Potassium Level 2.3 MMOL/L (3.5-5.1) *L Chloride Level 110 MMOL/L (98-107) H Carbon Dioxide Level 32 MMOL/L (21-32) Anion Gap 8 mmol/L (5-15) Blood Urea Nitrogen 21 mg/dL (7-18) H Creatinine 0.8 MG/DL (0.55-1.30) Estimat Glomerular Filtration Rate > 60 mL/min (>60) Glucose Level 147 MG/DL (74-106) H Calcium Level 8.8 MG/DL (8.5-10.1) Iron Level 24 ug/dL (50-175) L Total Iron Binding Capacity 173 ug/dL (250-450) L Percent Iron Saturation 14 % (15-50) L Unsaturated Iron Binding 149 ug/dL (112-346) Ferritin 466 NG/ML (8-388) H Total Bilirubin 0.6 MG/DL (0.2-1.0) Aspartate Amino Transf (AST/SGOT) 21 U/L (15-37) Alanine Aminotransferase (ALT/SGPT) 79 U/L (12-78) H Alkaline Phosphatase 73 U/L (46-116) Pro-B-Type Natriuretic Peptide 446 pg/mL (0-125) H Total Protein 7.9 G/DL (6.4-8.2) Albumin 2.5 G/DL (3.4-5.0) L Globulin 5.4 g/dL Albumin/Globulin Ratio 0.5 (1.0-2.7) L Triglycerides Level 131 MG/DL (30-150) Cholesterol Level 121 MG/DL (< 200) LDL Cholesterol 75 mg/dL (<100) HDL Cholesterol 27 MG/DL (40-60) L Cholesterol/HDL Ratio 4.5 (3.3-4.4) H Amylase Level 51 U/L (25-115) Lipase 189 U/L (73-393) Vitamin B12 Level 1198 PG/ML (193-986) H Folate 19.9 NG/ML (8.6-58.9) Thyroid Stimulating Hormone (TSH) 0.062 uiU/mL (0.358-3.740) Free Thyroxine 1.20 NG/DL (0.76-1.46) Microbiology Date/Time Source Procedure Growth Status 11/24/17 15:00 Sputum Induced Gram Stain Pending Resulted 11/24/17 15:00 Sputum Induced Sputum Culture - Preliminary Resulted Height (Feet): 6 Height (Inches): 1.00 Weight (Pounds): 160 General Appearance: no apparent distress, alert Cardiovascular: normal rate Respiratory/Chest: normal breath sounds, no respiratory distress, other - trach Abdominal Exam: normal bowel sounds, non tender, soft, GT site Extremities: non-tender Radha Fournier N.P. Nov 25, 2017 13:15 MELANIA MERCEDES Nov 26, 2017 09:13
[2017-11-25] MEDS: NS w/KCl 40mEq 1,000 ML IV SCH ×2 (15:12→18:30)
--- NOTE | 2017-11-25 15:57 | Infectious Diseases Prog Note ---
Assessment/Plan Assessment/Plan Abx: IV Cefepime x1 11/24 Zosyn 11/24- Assessment: L pyelonephritis w/ abscess; ?proctocolitis- -CT abd/p: Significant left perinephric fat stranding with a focal 4 x 3 cm fluid collection in the lower pole of the left kidney. Findings are concerning for pyelonephritis with renal abscess. No obstructing urinary tract stone noted on the left. Multiple small stones noted layering dependently in the bladder, which has a moderately thickened wall. Subcentimeter stones in the right distal ureter at or near the UVJ with minimal right-sided ureteral thickening/hydroureter. No evidence of hydronephrosis on the right.. These right-sided stones may be only partially obstructing. Correlation with physical exam findings/clinical history and with urinalysis/urine culture commended. Thickening of the rectum and sigmoid with minimal presacral infiltrative change. Findings suggestive of a proctocolitis. If patient has had fecal disimpaction recently, this could represent sequela of residual stercoral colitis. Alternatively these could resent sequela of prior radiation to the pelvis. Please correlate clinically. No evidence of bowel obstruction or free intraperitoneal air. Airspace consolidation in the lower lobe with suggestion of tree-in-bud opacities. These findings could represent pneumonia or aspiration. -Bcx NTD -u/a wbc 5-10,nit+, leuk +3; ucx p Possible PNA vs aspiration pneumonitis -CXR: Left basilar opacities and possible trace left pleural effusion. Although findings may be related to subsegmental atelectasis, pneumonia not entirely excluded. -sp cx p Leukocytosis, improving- 2ry to above Fever Elevated lipase- ?pancreatitis -CT abd/p: Pancreas with some dense calcifications in the pancreatic head and body, likely sequela of prior infection/inflammation. HTN, chronic resp failure on trach, s/p PEG, non verbal Plan: -Continue Zosyn #2 for renal abscess and possible proctocolitis and PNA pending cx ; will need IV abx tx for 4-6 weeks -if worsening fevers, leukocytosis or resp status, add IV Vancomycin -Discussed with IR Doctor given patient vent and difficult positioning and abscess <5mc and HD stable, will hold on IR intervention -low treshold for IR drainage if worsenign fevers/leukocytosis, HD instability -Uro f/u -f/u cx -Monitor CBC/BMP, temperatures -Aspiration precautions -Trach/peg care Thank you for this consultation. Will continue to follow along with you. Discussed with RN. Subjective Allergies: Coded Allergies: No Known Allergies (Unverified , 11/23/17) Subjective febrile to 101, currently afebrile leukocytosis improving Bcx NTD Objective Vital Signs Last 24 Hour Vital Signs Date Time Temp Pulse Resp B/P (MAP) Pulse Ox O2 Delivery O2 Flow Rate FiO2 11/25/17 13:33 T-piece 10.0 40 11/25/17 13:32 99 T-piece 10.0 40 11/25/17 12:00 98.7 88 18 138/76 99 T-piece 40 11/25/17 12:00 87 11/25/17 08:24 138/78 11/25/17 08:24 92 138/78 11/25/17 08:00 98.5 92 19 138/78 99 T-piece 40 11/25/17 08:00 89 11/25/17 07:41 98 T-piece 10.0 40 11/25/17 07:41 T-piece 10.0 40 11/25/17 04:00 99.6 88 20 138/74 99 T-piece 11/25/17 04:00 87 11/25/17 01:47 99.8 11/25/17 01:24 98 T-piece 10.0 40 11/25/17 01:23 T-piece 10.0 40 11/25/17 00:59 101.0 108 28 132/73 96 T-piece 11/25/17 00:00 101.0 108 28 132/73 96 T-piece 11/25/17 00:00 115 11/24/17 20:41 149/79 11/24/17 20:25 96 T-piece 10.0 40 11/24/17 20:25 T-piece 10.0 40 11/24/17 20:00 102 11/24/17 20:00 99.1 102 24 136/77 98 T-piece 11/24/17 16:00 99.0 98 20 127/75 98 Trach Collar 4.0 Height (Feet): 6 Height (Inches): 1.00 Weight (Pounds): 160 Objective General Appearance: WD/WN Lines, tubes and drains: peripheral HEENT: normocephalic, atraumatic Neck: non-tender, normal alignment, supple Respiratory/Chest: chest wall non-tender, lungs clear Breasts: no masses Cardiovascular/Chest: normal peripheral pulses Abdomen: normal bowel sounds, soft Extremities: normal range of motion, non-pitting Microbiology Date/Time Source Procedure Growth Status 11/24/17 04:01 Blood Blood Culture - Preliminary NO GROWTH AFTER 24 HOURS Resulted 11/24/17 04:01 Blood Blood Culture - Preliminary NO GROWTH AFTER 24 HOURS Resulted 11/24/17 15:00 Sputum Induced Gram Stain - Final Resulted 11/24/17 15:00 Sputum Induced Sputum Culture - Preliminary Resulted 11/24/17 15:00 Sacral Wound Gram Stain - Final Resulted 11/24/17 15:00 Sacral Wound Wound Culture Pending Resulted 11/24/17 04:30 Rectum VRE Culture - Final Enterococcus Faecalis - Vre Complete Laboratory Tests Test 11/24/17 16:50 11/24/17 17:00 11/25/17 04:20 Stool Occult Blood Negative (NEGATIVE) Urine Color Yellow Urine Appearance Clear Urine pH 7 (4.5-8.0) Urine Specific [place] 1.010 (1.005-1.035) Urine Protein 2+ (NEGATIVE) H Urine Glucose (UA) Negative (NEGATIVE) Urine Ketones Negative (NEGATIVE) Urine Occult Blood 2+ (NEGATIVE) H Urine Nitrite Positive (NEGATIVE) H Urine Bilirubin Negative (NEGATIVE) Urine Urobilinogen Normal MG/DL (0.0-1.0) Urine Leukocyte Esterase 3+ (NEGATIVE) H Urine RBC 2-4 /HPF (0 - 0) H Urine WBC 5-10 /HPF (0 - 0) H Urine Squamous Epithelial Cells None /LPF (NONE/OCC) Urine Amorphous Sediment Few /LPF (NONE) H Urine Bacteria Few /HPF (NONE) White Blood Count 13.0 K/UL (4.8-10.8) H Red Blood Count 3.07 M/UL (4.70-6.10) L Hemoglobin 9.5 G/DL (14.2-18.0) L Hematocrit 29.4 % (42.0-52.0) L Mean Corpuscular Volume 96 FL (80-99) Mean Corpuscular Hemoglobin 30.9 PG (27.0-31.0) Mean Corpuscular Hemoglobin Concent 32.3 G/DL (32.0-36.0) Red Cell Distribution Width 17.1 % (11.6-14.8) H Platelet Count 568 K/UL (150-450) H Mean Platelet Volume 6.2 FL (6.5-10.1) L Neutrophils (%) (Auto) 83.4 % (45.0-75.0) H Lymphocytes (%) (Auto) 10.8 % (20.0-45.0) L Monocytes (%) (Auto) 5.1 % (1.0-10.0) Eosinophils (%) (Auto) 0.4 % (0.0-3.0) Basophils (%) (Auto) 0.4 % (0.0-2.0) Reticulocyte Count 2.7 % (0.0-2.0) H Prothrombin Time 12.4 SEC (9.30-11.50) H Prothromb Time International Ratio 1.2 (0.9-1.1) H Activated Partial Thromboplast Time 31 SEC (23-33) Sodium Level 151 MMOL/L (136-145) H Potassium Level 2.3 MMOL/L (3.5-5.1) *L Chloride Level 110 MMOL/L (98-107) H Carbon Dioxide Level 32 MMOL/L (21-32) Anion Gap 8 mmol/L (5-15) Blood Urea Nitrogen 21 mg/dL (7-18) H Creatinine 0.8 MG/DL (0.55-1.30) Estimat Glomerular Filtration Rate > 60 mL/min (>60) Glucose Level 147 MG/DL (74-106) H Calcium Level 8.8 MG/DL (8.5-10.1) Iron Level 24 ug/dL (50-175) L Total Iron Binding Capacity 173 ug/dL (250-450) L Percent Iron Saturation 14 % (15-50) L Unsaturated Iron Binding 149 ug/dL (112-346) Ferritin 466 NG/ML (8-388) H Total Bilirubin 0.6 MG/DL (0.2-1.0) Aspartate Amino Transf (AST/SGOT) 21 U/L (15-37) Alanine Aminotransferase (ALT/SGPT) 79 U/L (12-78) H Alkaline Phosphatase 73 U/L (46-116) Pro-B-Type Natriuretic Peptide 446 pg/mL (0-125) H Total Protein 7.9 G/DL (6.4-8.2) Albumin 2.5 G/DL (3.4-5.0) L Globulin 5.4 g/dL Albumin/Globulin Ratio 0.5 (1.0-2.7) L Triglycerides Level 131 MG/DL (30-150) Cholesterol Level 121 MG/DL (< 200) LDL Cholesterol 75 mg/dL (<100) HDL Cholesterol 27 MG/DL (40-60) L Cholesterol/HDL Ratio 4.5 (3.3-4.4) H Amylase Level 51 U/L (25-115) Lipase 189 U/L (73-393) Vitamin B12 Level 1198 PG/ML (193-986) H Folate 19.9 NG/ML (8.6-58.9) Thyroid Stimulating Hormone (TSH) 0.062 uiU/mL (0.358-3.740) Free Thyroxine 1.20 NG/DL (0.76-1.46) Current Medications Medications (Trade) Dose Ordered Sig/Sara Route PRN Reason Start Time Stop Time Status Last Admin Dose Admin Acetaminophen (Tylenol) 650 mg Q4H PRN ORAL fever (temp > 100.5F) 11/24/17 07:00 12/24/17 06:59 11/25/17 00:48 Al Hydroxide/Mg Hydroxide (Mylanta II) 30 ml Q6H PRN ORAL dyspepsia 11/24/17 07:00 12/24/17 06:59 Amlodipine Besylate (Norvasc) 10 mg DAILY GT 11/24/17 09:00 12/24/17 08:59 11/25/17 08:24 Clonidine HCl (Catapres Tab) 0.1 mg Q8H PRN GT SBP greater than 160 11/24/17 09:00 12/24/17 08:59 Dextrose (Dextrose 50%) STAT PRN IV Hypoglycemia 11/24/17 07:00 12/24/17 06:59 Diphenhydramine HCl (Benadryl) 25 mg Q6H PRN ORAL Itching/Pruritis 11/24/17 07:00 12/24/17 06:59 Heparin Sodium (Porcine) (Heparin 5000 units/ml) 5,000 units EVERY 12 HOURS SUBQ 11/24/17 09:00 12/24/17 08:59 Hydralazine HCl (Apresoline) 50 mg Q12HR GT 11/24/17 09:00 12/24/17 08:59 11/25/17 08:24 Lorazepam (Ativan 2mg/ml 1ml) 1 mg Q4H PRN IV agitation 11/24/17 07:00 12/01/17 06:59 Morphine Sulfate (Morphine Sulfate) 2 mg Q4H PRN IVP severe Pain (Pain Scale 7-10) 11/24/17 07:00 12/01/17 06:59 Nitroglycerin (Ntg) 0.4 mg Q5M X 3 DOSES PRN SL Prn Chest Pain 11/24/17 07:00 12/24/17 06:59 Ondansetron HCl (Zofran) 4 mg Q6H PRN IVP Nausea & Vomiting 11/24/17 07:00 12/24/17 06:59 Pantoprazole (Protonix) 40 mg DAILY IV 11/24/17 09:00 12/24/17 08:59 11/25/17 08:24 Piperacillin Sod/ Tazobactam Sod 4.5 gm/Sodium Chloride 110 ml @ 27.5 mls/hr EVERY 8 HOURS IVPB 11/24/17 14:00 11/29/17 13:59 11/25/17 14:26 Polyethylene Glycol (Miralax) 17 gm HSPRN PRN ORAL Constipation 11/24/17 07:00 12/24/17 06:59 Promethazine HCl (Phenergan) 25 mg Q8H PRN IV refractory nausea 11/24/17 07:00 12/24/17 06:59 Sodium Chloride 1,000 ml @ 75 mls/hr [id number] IV 11/25/17 15:00 12/25/17 14:59 11/25/17 15:12 Temazepam (Restoril) 15 mg HSPRN PRN ORAL Insomnia 11/24/17 07:00 12/01/17 06:59 Yeimi Chanel M.D. Nov 25, 2017 15:57
[2017-11-25] MEDS ORDERED: Nitroglycerin Subl 0.4mg tab SL PRN (17:45)
[2017-11-25] MEDS ORDERED: LORazepam Inj 2mg/ml 1ml IV PRN (18:00)
[2017-11-25] MEDS ORDERED: Miralax 17gm pkt ORAL PRN (18:00)
[2017-11-25] MEDS ORDERED: Mylanta II UD 30ml ORAL PRN (18:00)
[2017-11-25] MEDS ORDERED: Morphine Sulfate 2mg/ml Inj IVP PRN (18:00)
[2017-11-25 18:05] LABS: ANION GAP 7 mmol/L (5-15); BLOOD UREA NITROGEN 16 mg/dL (7-18); CALCIUM 8.8 MG/DL (8.5-10.1); CARBON DIOXIDE 33 MMOL/L (21-32); CHLORIDE 112 MMOL/L (98-107); CREATININE 0.7 MG/DL (0.55-1.30); POTASSIUM 2.9 MMOL/L (3.5-5.1); SODIUM 152 MMOL/L (136-145)
[2017-11-25] MEDS ORDERED: Potassium Chloride 20 MEQ/ NS 275 ML IVPB ONE ×2 (22:00)
[2017-11-26] VITALS (7 sets, daily range): BP systolic 121–151; BP diastolic 65–92
[2017-11-26] MEDS ORDERED: SODIUM CHLORIDE IVPB ONE ×2 (01:00)
[2017-11-26] MEDS ORDERED: POTASSIUM CHLORIDE IVPB ONE ×2 (01:00)
[2017-11-26] MEDS: NS w/KCl 40mEq 1,000 ML IV SCH ×2 (05:49→05:50)
[2017-11-26] MEDS: Piperacillin/Tazobactam 4.5 GM in NS 110 ML IVPB SCH ×4 (05:52→21:30)
[2017-11-26 08:02] LABS: BASOPHILS % (AUTO) 0.8 % (0.0-2.0); EOSINOPHILS % (AUTO) 1.2 % (0.0-3.0); HEMATOCRIT 33.1 % (42.0-52.0); HEMOGLOBIN 10.6 G/DL (14.2-18.0); MEAN CORPUSCULAR VOLUME 98 FL (80-99); MONOCYTES % (AUTO) 6.6 % (1.0-10.0); NEUTROPHILS % (AUTO) 75.4 % (45.0-75.0); PLATELET COUNT 513 K/UL (150-450); RED BLOOD COUNT 3.37 M/UL (4.70-6.10); WHITE BLOOD COUNT 9.6 K/UL (4.8-10.8)
[2017-11-26 08:09] LABS: ALANINE AMINOTRANSFERASE 68 U/L (12-78); ALBUMIN 2.4 G/DL (3.4-5.0); ALBUMIN/GLOBULIN RATIO 0.4 (1.0-2.7); ALKALINE PHOSPHATASE 70 U/L (46-116); ANION GAP 6 mmol/L (5-15); ASPARTATE AMINO TRANSFERASE 22 U/L (15-37); BILIRUBIN,TOTAL 0.4 MG/DL (0.2-1.0); BLOOD UREA NITROGEN 17 mg/dL (7-18); CALCIUM 8.7 MG/DL (8.5-10.1); CARBON DIOXIDE 30 MMOL/L (21-32); CHLORIDE 117 MMOL/L (98-107); CREATININE 0.7 MG/DL (0.55-1.30); PHOSPHORUS 2.4 MG/DL (2.5-4.9); SODIUM 153 MMOL/L (136-145)
[2017-11-26] MEDS: Pantoprazole Inj IV SCH (08:38)
[2017-11-26] MEDS: HydrALAZINE 50mg tab GT SCH ×2 (08:40→20:59)
[2017-11-26] MEDS: Heparin 5000 units/ml inj SUBQ SCH ×2 (08:42→21:01)
--- NOTE | 2017-11-26 10:35 | GI Progress Note ---
Assessment/Plan Problems: (1) Feeding by G-tube ICD Codes: Z93.1 - Gastrostomy status SNOMED: 664041614, [id number] (2) Severe anemia ICD Codes: D64.9 - Anemia, unspecified SNOMED: 887462653 (3) Pancreatitis ICD Codes: K85.90 - Acute pancreatitis without necrosis or infection, unspecified SNOMED: 36922226 Status: progressing Status Narrative Discussed with Dr. Mercedes. Assessment/Plan CT AP reviewed, see full report. >> suggestive of a proctocolitis. No evidence of bowel obstruction or free intraperitoneal air. abdominal U/S reviewed, see full report >> renal abscess elevated lipase >> +3000 >> now normal lipid panel for pancreatitis unremarkable OB stool r/o GI bleed >> negative anemia work up >> will consider GI procedures if indicated no iron supplementation given elevated ferritin levels monitor H&H, prn transfusions restart GTFs bowel regime >> colace + miralax ppi fu labs The patient was seen and examined at bedside and all new and available data was reviewed in the patients chart. I agree with the above findings, impression and plan. (Patient seen earlier today. Signature stamp does not reflect patient encounter time.). - Mariah Mercedes MD Subjective Subjective limited Objective Last 24 Hour Vital Signs Date Time Temp Pulse Resp B/P (MAP) Pulse Ox O2 Delivery O2 Flow Rate FiO2 11/26/17 08:41 19 151/92 11/26/17 08:40 151/92 11/26/17 08:35 T-piece 10.0 35 11/26/17 08:34 98 T-piece 10.0 35 11/26/17 06:34 99 11/26/17 03:56 98.6 84 18 121/65 95 Room Air 11/26/17 00:44 T-piece 10.0 35 11/26/17 00:43 98 T-piece 10.0 35 11/26/17 00:39 98.8 11/26/17 00:08 99.7 97 18 130/71 96 Room Air 11/26/17 00:00 97 11/25/17 20:44 139/81 11/25/17 20:33 99.0 91 18 139/81 96 Room Air 11/25/17 20:28 99 T-piece 10.0 40 11/25/17 20:28 T-piece 10.0 40 11/25/17 20:00 91 11/25/17 17:52 100.0 84 19 145/81 97 T-piece 40 11/25/17 16:00 97.5 93 18 138/80 98 T-piece 40 11/25/17 16:00 93 11/25/17 13:33 T-piece 10.0 40 11/25/17 13:32 99 T-piece 10.0 40 11/25/17 12:00 98.7 88 18 138/76 99 T-piece 40 11/25/17 12:00 87 Intake and Output 11/25/17 11/26/17 19:00 07:00 Intake Total 1843.0 ml 1860.5 ml Output Total 230 ml 400 ml Balance 1613.0 ml 1460.5 ml Intake Free Water 15 ml 100 ml IV Total 1753.0 ml 1340.5 ml Tube Feeding 45 ml 420 ml Other 30 ml Output Urine Total 230 ml 400 ml # Voids 3 # Bowel Movements 2 2 Laboratory Tests Test 11/25/17 17:05 11/26/17 05:55 Sodium Level 152 MMOL/L (136-145) H 153 MMOL/L (136-145) H Potassium Level 2.9 MMOL/L (3.5-5.1) L 4.0 MMOL/L (3.5-5.1) Chloride Level 112 MMOL/L (98-107) H 117 MMOL/L (98-107) H Carbon Dioxide Level 33 MMOL/L (21-32) H 30 MMOL/L (21-32) Anion Gap 7 mmol/L (5-15) 6 mmol/L (5-15) Blood Urea Nitrogen 16 mg/dL (7-18) 17 mg/dL (7-18) Creatinine 0.7 MG/DL (0.55-1.30) 0.7 MG/DL (0.55-1.30) Estimat Glomerular Filtration Rate > 60 mL/min (>60) > 60 mL/min (>60) Glucose Level 114 MG/DL (74-106) H 120 MG/DL (74-106) H Calcium Level 8.8 MG/DL (8.5-10.1) 8.7 MG/DL (8.5-10.1) White Blood Count 9.6 K/UL (4.8-10.8) Red Blood Count 3.37 M/UL (4.70-6.10) L Hemoglobin 10.6 G/DL (14.2-18.0) L Hematocrit 33.1 % (42.0-52.0) L Mean Corpuscular Volume 98 FL (80-99) Mean Corpuscular Hemoglobin 31.4 PG (27.0-31.0) H Mean Corpuscular Hemoglobin Concent 32.1 G/DL (32.0-36.0) Red Cell Distribution Width 17.0 % (11.6-14.8) H Platelet Count 513 K/UL (150-450) H Mean Platelet Volume 6.1 FL (6.5-10.1) L Neutrophils (%) (Auto) 75.4 % (45.0-75.0) H Lymphocytes (%) (Auto) 16.0 % (20.0-45.0) L Monocytes (%) (Auto) 6.6 % (1.0-10.0) Eosinophils (%) (Auto) 1.2 % (0.0-3.0) Basophils (%) (Auto) 0.8 % (0.0-2.0) Phosphorus Level 2.4 MG/DL (2.5-4.9) L Magnesium Level 2.0 MG/DL (1.8-2.4) Total Bilirubin 0.4 MG/DL (0.2-1.0) Aspartate Amino Transf (AST/SGOT) 22 U/L (15-37) Alanine Aminotransferase (ALT/SGPT) 68 U/L (12-78) Alkaline Phosphatase 70 U/L (46-116) Total Protein 7.8 G/DL (6.4-8.2) Albumin 2.4 G/DL (3.4-5.0) L Globulin 5.4 g/dL Albumin/Globulin Ratio 0.4 (1.0-2.7) L Height (Feet): 6 Height (Inches): 1.00 Weight (Pounds): 160 General Appearance: no apparent distress Cardiovascular: normal rate Respiratory/Chest: normal breath sounds, no respiratory distress, other - trach to vent Abdominal Exam: normal bowel sounds, non tender, soft, GT site - c/d/i Extremities: non-tender Fournier,Radha Duke N.P. Nov 26, 2017 10:35 MELANIA MERCEDES Nov 29, 2017 10:15
--- NOTE | 2017-11-26 13:32 | Pulmonology Progress Note ---
Assessment/Plan Problems: (1) Renal abscess (2) Hypokalemia (3) Severe anemia (4) Pancreatitis (5) Feeding by G-tube (6) Status post tracheostomy Assessment/Plan improving change IV fluids to Dvw continue abx check cultures med/surg Subjective ROS Limited/Unobtainable: No Constitutional: Reports: no symptoms HEENT: Repors: no symptoms Respiratory: Reports: no symptoms Allergies: Coded Allergies: No Known Allergies (Unverified , 11/23/17) Objective Last 24 Hour Vital Signs Date Time Temp Pulse Resp B/P (MAP) Pulse Ox O2 Delivery O2 Flow Rate FiO2 11/26/17 08:41 19 151/92 11/26/17 08:40 151/92 11/26/17 08:35 T-piece 10.0 35 11/26/17 08:34 98 T-piece 10.0 35 11/26/17 08:00 96.3 78 18 151/92 100 T-piece 40 11/26/17 06:34 99 11/26/17 03:56 98.6 84 18 121/65 95 Room Air 11/26/17 00:44 T-piece 10.0 35 11/26/17 00:43 98 T-piece 10.0 35 11/26/17 00:39 98.8 11/26/17 00:08 99.7 97 18 130/71 96 Room Air 11/26/17 00:00 97 11/25/17 20:44 139/81 11/25/17 20:33 99.0 91 18 139/81 96 Room Air 11/25/17 20:28 99 T-piece 10.0 40 11/25/17 20:28 T-piece 10.0 40 11/25/17 20:00 91 11/25/17 17:52 100.0 84 19 145/81 97 T-piece 40 11/25/17 16:00 97.5 93 18 138/80 98 T-piece 40 11/25/17 16:00 93 11/25/17 13:33 T-piece 10.0 40 11/25/17 13:32 99 T-piece 10.0 40 Intake and Output 11/25/17 11/26/17 19:00 07:00 Intake Total 1843.0 ml 1860.5 ml Output Total 230 ml 400 ml Balance 1613.0 ml 1460.5 ml Intake Free Water 15 ml 100 ml IV Total 1753.0 ml 1340.5 ml Tube Feeding 45 ml 420 ml Other 30 ml Output Urine Total 230 ml 400 ml # Voids 3 # Bowel Movements 2 2 General Appearance: WD/WN HEENT: normocephalic, atraumatic Respiratory/Chest: chest wall non-tender, lungs clear Cardiovascular: normal peripheral pulses, normal rate Abdomen: normal bowel sounds, soft, non tender, no organomegaly Extremities: no cyanosis Skin: no lesions 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 Complete 11/24/17 15:00 Sacral Wound Gram Stain - Final Resulted 11/24/17 15:00 Sacral Wound Wound Culture - Preliminary Resulted 11/24/17 04:30 Rectum VRE Culture - Final Enterococcus Faecalis - Vre Complete Laboratory Tests 11/25/17 17:05: Sodium Level 152H, Potassium Level 2.9L, Chloride Level 112H, Carbon Dioxide Level 33H, Anion Gap 7, Blood Urea Nitrogen 16, Creatinine 0.7, Estimat Glomerular Filtration Rate > 60, Glucose Level 114H, Calcium Level 8.8 11/26/17 05:55: Sodium Level 153H, Potassium Level 4.0, Chloride Level 117H, Carbon Dioxide Level 30, Anion Gap 6, Blood Urea Nitrogen 17, Creatinine 0.7, Estimat Glomerular Filtration Rate > 60, Glucose Level 120H, Calcium Level 8.7, White Blood Count 9.6, Red Blood Count 3.37L, Hemoglobin 10.6L, Hematocrit 33.1L, Mean Corpuscular Volume 98, Mean Corpuscular Hemoglobin 31.4H, Mean Corpuscular Hemoglobin Concent 32.1, Red Cell Distribution Width 17.0H, Platelet Count 513H , Mean Platelet Volume 6.1L, Neutrophils (%) (Auto) 75.4H, Lymphocytes (%) (Auto ) 16.0L, Monocytes (%) (Auto) 6.6, Eosinophils (%) (Auto) 1.2, Basophils (%) ( Auto) 0.8, Phosphorus Level 2.4L, Magnesium Level 2.0, Total Bilirubin 0.4, Aspartate Amino Transf (AST/SGOT) 22, Alanine Aminotransferase (ALT/SGPT) 68, Alkaline Phosphatase 70, Total Protein 7.8, Albumin 2.4L, Globulin 5.4, Albumin/ Globulin Ratio 0.4L Current Medications Medications (Trade) Dose Ordered Sig/Sara Route PRN Reason Start Time Stop Time Status Last Admin Dose Admin Acetaminophen (Tylenol) 650 mg Q4H PRN ORAL fever (temp > 100.5F) 11/25/17 18:00 12/24/17 17:59 11/25/17 23:40 Al Hydroxide/Mg Hydroxide (Mylanta II) 30 ml Q6H PRN ORAL dyspepsia 11/25/17 18:00 12/24/17 17:59 Amlodipine Besylate (Norvasc) 10 mg DAILY GT 11/26/17 09:00 12/24/17 08:59 11/26/17 08:41 Clonidine HCl (Catapres Tab) 0.1 mg Q8H PRN GT SBP greater than 160 11/25/17 18:00 12/25/17 17:59 Dextrose (Dextrose 50%) STAT PRN IV Hypoglycemia 11/25/17 18:00 12/25/17 17:59 Diphenhydramine HCl (Benadryl) 25 mg Q6H PRN ORAL Itching/Pruritis 11/25/17 18:00 12/24/17 17:59 Heparin Sodium (Porcine) (Heparin 5000 units/ml) 5,000 units EVERY 12 HOURS SUBQ 11/25/17 21:00 12/24/17 08:59 11/26/17 08:42 Hydralazine HCl (Apresoline) 50 mg Q12HR GT 11/25/17 21:00 12/24/17 08:59 11/26/17 08:40 Iron Sucrose 100 mg/Sodium Chloride 60 ml @ 240 mls/hr BEDTIME IV 11/26/17 21:00 11/30/17 21:14 Lorazepam (Ativan 2mg/ml 1ml) 1 mg Q4H PRN IV agitation 11/25/17 18:00 12/01/17 17:59 Morphine Sulfate (Morphine Sulfate) 2 mg Q4H PRN IVP severe Pain (Pain Scale 7-10) 11/25/17 18:00 12/01/17 17:59 Nitroglycerin (Ntg) 0.4 mg Q5M X 3 DOSES PRN SL Prn Chest Pain 11/25/17 17:45 12/24/17 06:59 Ondansetron HCl (Zofran) 4 mg Q6H PRN IVP Nausea & Vomiting 11/25/17 18:00 12/24/17 17:59 Pantoprazole (Protonix) 40 mg DAILY IV 11/26/17 09:00 12/24/17 08:59 11/26/17 08:38 Piperacillin Sod/ Tazobactam Sod 4.5 gm/Sodium Chloride 110 ml @ 27.5 mls/hr EVERY 8 HOURS IVPB 11/25/17 22:00 11/30/17 21:59 11/26/17 05:52 Polyethylene Glycol (Miralax) 17 gm HSPRN PRN ORAL Constipation 11/25/17 18:00 12/25/17 17:59 Promethazine HCl (Phenergan) 25 mg Q8H PRN IV refractory nausea 11/25/17 18:00 12/24/17 17:59 Sodium Chloride 1,000 ml @ 75 mls/hr [id number] IV 11/25/17 18:30 12/25/17 18:29 11/26/17 05:50 Temazepam (Restoril) 15 mg HSPRN PRN ORAL Insomnia 11/25/17 18:00 12/02/17 17:59 11/25/17 20:44 ISELA LIM Nov 26, 2017 13:31
--- NOTE | 2017-11-26 15:03 | Cardiology Report ---
APPROVED REPORT EKG Measurement Heart [id number] NM [id number] Normal sinus rhythm Moderate voltage criteria for LVH, may be normal variant Borderline ECG
--- NOTE | 2017-11-26 16:03 | Infectious Diseases Prog Note ---
Assessment/Plan Assessment/Plan Abx: IV Cefepime x1 11/24 Zosyn 11/24- Assessment: L pyelonephritis w/ abscess; ?proctocolitis- -CT abd/p: Significant left perinephric fat stranding with a focal 4 x 3 cm fluid collection in the lower pole of the left kidney. Findings are concerning for pyelonephritis with renal abscess. No obstructing urinary tract stone noted on the left. Multiple small stones noted layering dependently in the bladder, which has a moderately thickened wall. Subcentimeter stones in the right distal ureter at or near the UVJ with minimal right-sided ureteral thickening/hydroureter. No evidence of hydronephrosis on the right.. These right-sided stones may be only partially obstructing. Correlation with physical exam findings/clinical history and with urinalysis/urine culture commended. Thickening of the rectum and sigmoid with minimal presacral infiltrative change. Findings suggestive of a proctocolitis. If patient has had fecal disimpaction recently, this could represent sequela of residual stercoral colitis. Alternatively these could resent sequela of prior radiation to the pelvis. Please correlate clinically. No evidence of bowel obstruction or free intraperitoneal air. Airspace consolidation in the lower lobe with suggestion of tree-in-bud opacities. These findings could represent pneumonia or aspiration. -Bcx NTD -u/a wbc 5-10,nit+, leuk +3; ucx p Possible PNA vs aspiration pneumonitis -CXR: Left basilar opacities and possible trace left pleural effusion. Although findings may be related to subsegmental atelectasis, pneumonia not entirely excluded. -sp cx p Leukocytosis, resolved- 2ry to above Fever, improving Elevated lipase- ?pancreatitis -CT abd/p: Pancreas with some dense calcifications in the pancreatic head and body, likely sequela of prior infection/inflammation. HTN, chronic resp failure on trach, s/p PEG, non verbal Plan: -Continue Zosyn #3 for renal abscess and possible proctocolitis and PNA pending cx ; will need IV abx tx for 4-6 weeks -if worsening fevers, leukocytosis or resp status, add IV Vancomycin -Discussed with IR physician given patient vent and difficult positioning and abscess <5mc and HD stable, will hold on IR intervention -low treshold for IR drainage if worsenign fevers/leukocytosis, HD instability -Uro f/u -f/u cx -Monitor CBC/BMP, temperatures -Aspiration precautions -Trach/peg care Thank you for this consultation. Will continue to follow along with you. Discussed with RN. Subjective Allergies: Coded Allergies: No Known Allergies (Unverified , 11/23/17) Subjective afebrile ~24hrs leukocytosis resolved ucx p Bcx NTD Objective Vital Signs Last 24 Hour Vital Signs Date Time Temp Pulse Resp B/P (MAP) Pulse Ox O2 Delivery O2 Flow Rate FiO2 11/26/17 13:41 T-piece 10.0 35 11/26/17 13:40 97 T-piece 10.0 35 11/26/17 12:00 90 11/26/17 12:00 97.0 95 18 126/82 100 T-piece 40 11/26/17 08:41 19 151/92 11/26/17 08:40 151/92 11/26/17 08:35 T-piece 10.0 35 11/26/17 08:34 98 T-piece 10.0 35 11/26/17 08:00 71 11/26/17 08:00 96.3 78 18 151/92 100 T-piece 40 11/26/17 06:34 99 11/26/17 03:56 98.6 84 18 121/65 95 Room Air 11/26/17 00:44 T-piece 10.0 35 11/26/17 00:43 98 T-piece 10.0 35 11/26/17 00:39 98.8 11/26/17 00:08 99.7 97 18 130/71 96 Room Air 11/26/17 00:00 97 11/25/17 20:44 139/81 11/25/17 20:33 99.0 91 18 139/81 96 Room Air 11/25/17 20:28 99 T-piece 10.0 40 11/25/17 20:28 T-piece 10.0 40 11/25/17 20:00 91 11/25/17 17:52 100.0 84 19 145/81 97 T-piece 40 11/25/17 16:00 97.5 93 18 138/80 98 T-piece 40 11/25/17 16:00 93 Height (Feet): 6 Height (Inches): 1.00 Weight (Pounds): 160 Objective General Appearance: WD/WN Lines, tubes and drains: peripheral HEENT: normocephalic, atraumatic Neck: non-tender, normal alignment, supple Respiratory/Chest: chest wall non-tender, lungs clear Breasts: no masses Cardiovascular/Chest: normal peripheral pulses Abdomen: normal bowel sounds, soft Extremities: normal range of motion, non-pitting Microbiology Date/Time Source Procedure Growth Status 11/24/17 04:01 Blood Blood Culture - Preliminary NO GROWTH AFTER 48 HOURS Resulted 11/24/17 04:01 Blood Blood Culture - Preliminary NO GROWTH AFTER 48 HOURS Resulted 11/24/17 15:00 Sputum Induced Gram Stain - Final Resulted 11/24/17 15:00 Sputum Induced Sputum Culture - Preliminary Resulted 11/24/17 04:30 Nasal Nares MRSA Culture - Final NO METHICILLIN RESISTANT STAPH AUREUS... Complete 11/24/17 15:00 Sacral Wound Gram Stain - Final Resulted 11/24/17 15:00 Sacral Wound Wound Culture - Preliminary Resulted 11/24/17 04:30 Rectum VRE Culture - Final Enterococcus Faecalis - Vre Complete Laboratory Tests Test 11/25/17 17:05 11/26/17 05:55 Sodium Level 152 MMOL/L (136-145) H 153 MMOL/L (136-145) H Potassium Level 2.9 MMOL/L (3.5-5.1) L 4.0 MMOL/L (3.5-5.1) Chloride Level 112 MMOL/L (98-107) H 117 MMOL/L (98-107) H Carbon Dioxide Level 33 MMOL/L (21-32) H 30 MMOL/L (21-32) Anion Gap 7 mmol/L (5-15) 6 mmol/L (5-15) Blood Urea Nitrogen 16 mg/dL (7-18) 17 mg/dL (7-18) Creatinine 0.7 MG/DL (0.55-1.30) 0.7 MG/DL (0.55-1.30) Estimat Glomerular Filtration Rate > 60 mL/min (>60) > 60 mL/min (>60) Glucose Level 114 MG/DL (74-106) H 120 MG/DL (74-106) H Calcium Level 8.8 MG/DL (8.5-10.1) 8.7 MG/DL (8.5-10.1) White Blood Count 9.6 K/UL (4.8-10.8) Red Blood Count 3.37 M/UL (4.70-6.10) L Hemoglobin 10.6 G/DL (14.2-18.0) L Hematocrit 33.1 % (42.0-52.0) L Mean Corpuscular Volume 98 FL (80-99) Mean Corpuscular Hemoglobin 31.4 PG (27.0-31.0) H Mean Corpuscular Hemoglobin Concent 32.1 G/DL (32.0-36.0) Red Cell Distribution Width 17.0 % (11.6-14.8) H Platelet Count 513 K/UL (150-450) H Mean Platelet Volume 6.1 FL (6.5-10.1) L Neutrophils (%) (Auto) 75.4 % (45.0-75.0) H Lymphocytes (%) (Auto) 16.0 % (20.0-45.0) L Monocytes (%) (Auto) 6.6 % (1.0-10.0) Eosinophils (%) (Auto) 1.2 % (0.0-3.0) Basophils (%) (Auto) 0.8 % (0.0-2.0) Phosphorus Level 2.4 MG/DL (2.5-4.9) L Magnesium Level 2.0 MG/DL (1.8-2.4) Total Bilirubin 0.4 MG/DL (0.2-1.0) Aspartate Amino Transf (AST/SGOT) 22 U/L (15-37) Alanine Aminotransferase (ALT/SGPT) 68 U/L (12-78) Alkaline Phosphatase 70 U/L (46-116) Total Protein 7.8 G/DL (6.4-8.2) Albumin 2.4 G/DL (3.4-5.0) L Globulin 5.4 g/dL Albumin/Globulin Ratio 0.4 (1.0-2.7) L Current Medications Medications (Trade) Dose Ordered Sig/Sara Route PRN Reason Start Time Stop Time Status Last Admin Dose Admin Acetaminophen (Tylenol) 650 mg Q4H PRN ORAL fever (temp > 100.5F) 11/25/17 18:00 12/24/17 17:59 11/25/17 23:40 Al Hydroxide/Mg Hydroxide (Mylanta II) 30 ml Q6H PRN ORAL dyspepsia 11/25/17 18:00 12/24/17 17:59 Amlodipine Besylate (Norvasc) 10 mg DAILY GT 11/26/17 09:00 12/24/17 08:59 11/26/17 08:41 Clonidine HCl (Catapres Tab) 0.1 mg Q8H PRN GT SBP greater than 160 11/25/17 18:00 12/25/17 17:59 Dextrose 1,000 ml @ 100 mls/hr Q10H IV 11/26/17 14:00 12/26/17 13:59 11/26/17 14:21 Dextrose (Dextrose 50%) STAT PRN IV Hypoglycemia 11/25/17 18:00 12/25/17 17:59 Diphenhydramine HCl (Benadryl) 25 mg Q6H PRN ORAL Itching/Pruritis 11/25/17 18:00 12/24/17 17:59 Heparin Sodium (Porcine) (Heparin 5000 units/ml) 5,000 units EVERY 12 HOURS SUBQ 11/25/17 21:00 12/24/17 08:59 11/26/17 08:42 Hydralazine HCl (Apresoline) 50 mg Q12HR GT 11/25/17 21:00 12/24/17 08:59 11/26/17 08:40 Iron Sucrose 100 mg/Sodium Chloride 60 ml @ 240 mls/hr BEDTIME IV 11/26/17 21:00 11/30/17 21:14 Lorazepam (Ativan 2mg/ml 1ml) 1 mg Q4H PRN IV agitation 11/25/17 18:00 12/01/17 17:59 Morphine Sulfate (Morphine Sulfate) 2 mg Q4H PRN IVP severe Pain (Pain Scale 7-10) 11/25/17 18:00 12/01/17 17:59 Nitroglycerin (Ntg) 0.4 mg Q5M X 3 DOSES PRN SL Prn Chest Pain 11/25/17 17:45 12/24/17 06:59 Ondansetron HCl (Zofran) 4 mg Q6H PRN IVP Nausea & Vomiting 11/25/17 18:00 12/24/17 17:59 Pantoprazole (Protonix) 40 mg DAILY IV 11/26/17 09:00 12/24/17 08:59 11/26/17 08:38 Piperacillin Sod/ Tazobactam Sod 4.5 gm/Sodium Chloride 110 ml @ 27.5 mls/hr EVERY 8 HOURS IVPB 11/25/17 22:00 11/30/17 21:59 11/26/17 14:27 Polyethylene Glycol (Miralax) 17 gm HSPRN PRN ORAL Constipation 11/25/17 18:00 12/25/17 17:59 Promethazine HCl (Phenergan) 25 mg Q8H PRN IV refractory nausea 11/25/17 18:00 12/24/17 17:59 Temazepam (Restoril) 15 mg HSPRN PRN ORAL Insomnia 11/25/17 18:00 12/02/17 17:59 11/25/17 20:44 Yeimi Chanel M.D. Nov 26, 2017 16:03
[2017-11-26] MEDS ORDERED: Iron Sucrose 100 MG in NS 55 ML IV SCH (21:00)
[2017-11-27 00:07] VITALS: BP 130/82
[2017-11-27 04:24] VITALS: BP 132/79
[2017-11-27] MEDS: Piperacillin/Tazobactam 4.5 GM in NS 110 ML IVPB SCH ×3 (05:37→22:07)
[2017-11-27 08:00] VITALS: BP 150/88
[2017-11-27 08:13] LABS: EOSINOPHILS % (AUTO) 3.3 % (0.0-3.0); HEMATOCRIT 33.3 % (42.0-52.0); HEMOGLOBIN 10.5 G/DL (14.2-18.0); LYMPHOCYTES % (AUTO) 16.8 % (20.0-45.0); MEAN CORPUSCULAR VOLUME 98 FL (80-99); MONOCYTES % (AUTO) 7.1 % (1.0-10.0); NEUTROPHILS % (AUTO) 71.8 % (45.0-75.0); PLATELET COUNT 504 K/UL (150-450); RED BLOOD COUNT 3.41 M/UL (4.70-6.10); RED CELL DISTRIBUTION WIDTH 16.6 % (11.6-14.8); WHITE BLOOD COUNT 9.6 K/UL (4.8-10.8)
--- NOTE | 2017-11-27 08:38 | Pulmonology Progress Note ---
Assessment/Plan Problems: (1) Renal abscess (2) Hypokalemia (3) Severe anemia (4) Pancreatitis (5) Feeding by G-tube (6) Status post tracheostomy Assessment/Plan improving change IV fluids to Dvw continue abx, check cultures, sensitivity pending, check Na, med/surg Subjective ROS Limited/Unobtainable: No Constitutional: Reports: no symptoms HEENT: Repors: no symptoms Respiratory: Reports: no symptoms Allergies: Coded Allergies: No Known Allergies (Unverified , 11/23/17) Objective Last 24 Hour Vital Signs Date Time Temp Pulse Resp B/P (MAP) Pulse Ox O2 Delivery O2 Flow Rate FiO2 11/27/17 08:00 99.7 89 20 150/88 99 T-piece 40 11/27/17 04:24 98.4 97 18 132/79 97 Nasal Cannula 11/27/17 04:00 86 11/27/17 03:44 T-piece 10.0 40 11/27/17 03:43 97 T-piece 10.0 40 11/27/17 00:07 96.3 98 18 130/82 97 Room Air 11/27/17 00:00 88 11/26/17 20:59 140/85 11/26/17 20:17 T-piece 10.0 40 11/26/17 20:16 97 T-piece 10.0 40 11/26/17 20:00 82 11/26/17 19:54 99.0 95 18 140/85 97 Room Air 11/26/17 18:20 98.1 91 19 125/82 T-piece 40 11/26/17 18:00 93 11/26/17 16:00 98.1 91 19 125/82 96 T-piece 40 11/26/17 13:41 T-piece 10.0 35 11/26/17 13:40 97 T-piece 10.0 35 11/26/17 12:00 90 11/26/17 12:00 97.0 95 18 126/82 100 T-piece 40 11/26/17 08:41 19 151/92 11/26/17 08:40 151/92 Intake and Output 11/26/17 11/27/17 19:00 07:00 Intake Total 510 ml Output Total 250 ml 300 ml Balance 260 ml -300 ml Tube Feeding 60 ml Other 450 ml Output Urine Total 250 ml 300 ml # Bowel Movements 1 Objective General Appearance: WD/WN HEENT: normocephalic, atraumatic Respiratory/Chest: chest wall non-tender, lungs clear Cardiovascular: normal peripheral pulses, normal rate Abdomen: normal bowel sounds, soft, non tender, no organomegaly Extremities: no cyanosis Skin: no lesions Microbiology Date/Time Source Procedure Growth Status 11/24/17 15:00 Sputum Induced Gram Stain - Final Resulted 11/24/17 15:00 Sputum Culture - Preliminary Gram Negative Bacillus 1 Gram Negative Bacillus 2 Gram Negative Bacillus 3 Resulted 11/24/17 15:00 Sacral Wound Gram Stain - Final Resulted 11/24/17 15:00 Sacral Wound Wound Culture - Preliminary Resulted Laboratory Tests 11/27/17 06:50: White Blood Count 9.6, Red Blood Count 3.41L, Hemoglobin 10.5L, Hematocrit 33.3L , Mean Corpuscular Volume 98, Mean Corpuscular Hemoglobin 30.9, Mean Corpuscular Hemoglobin Concent 31.6L, Red Cell Distribution Width 16.6H, Platelet Count 504H, Mean Platelet Volume 6.1L, Neutrophils (%) (Auto) 71.8, Lymphocytes (%) (Auto) 16.8L, Monocytes (%) (Auto) 7.1, Eosinophils (%) (Auto) 3.3H, Basophils (%) (Auto) 1.0, Sodium Level [Pending], Potassium Level [Pending ], Chloride Level [Pending], Carbon Dioxide Level [Pending], Blood Urea Nitrogen [Pending], Creatinine [Pending], Estimat Glomerular Filtration Rate [ Pending], Glucose Level [Pending], Calcium Level [Pending], Phosphorus Level [ Pending], Magnesium Level [Pending], Total Bilirubin [Pending], Aspartate Amino Transf (AST/SGOT) [Pending], Alanine Aminotransferase (ALT/SGPT) [Pending], Alkaline Phosphatase [Pending], C-Reactive Protein, Quantitative [Pending], Total Protein [Pending], Albumin [Pending], Globulin [Pending] Current Medications Medications (Trade) Dose Ordered Sig/Sara Route PRN Reason Start Time Stop Time Status Last Admin Dose Admin Acetaminophen (Tylenol) 650 mg Q4H PRN ORAL fever (temp > 100.5F) 11/25/17 18:00 12/24/17 17:59 11/25/17 23:40 Al Hydroxide/Mg Hydroxide (Mylanta II) 30 ml Q6H PRN ORAL dyspepsia 11/25/17 18:00 12/24/17 17:59 Amlodipine Besylate (Norvasc) 10 mg DAILY GT 11/26/17 09:00 12/24/17 08:59 11/26/17 08:41 Clonidine HCl (Catapres Tab) 0.1 mg Q8H PRN GT SBP greater than 160 11/25/17 18:00 12/25/17 17:59 Dextrose 1,000 ml @ 100 mls/hr Q10H IV 11/26/17 14:00 12/26/17 13:59 11/26/17 14:21 Dextrose (Dextrose 50%) STAT PRN IV Hypoglycemia 11/25/17 18:00 12/25/17 17:59 Diphenhydramine HCl (Benadryl) 25 mg Q6H PRN ORAL Itching/Pruritis 11/25/17 18:00 12/24/17 17:59 Heparin Sodium (Porcine) (Heparin 5000 units/ml) 5,000 units EVERY 12 HOURS SUBQ 11/25/17 21:00 12/24/17 08:59 11/26/17 21:01 Hydralazine HCl (Apresoline) 50 mg Q12HR GT 11/25/17 21:00 12/24/17 08:59 11/26/17 20:59 Iron Sucrose 100 mg/Sodium Chloride 60 ml @ 240 mls/hr BEDTIME IV 11/26/17 21:00 11/30/17 21:14 11/26/17 21:00 Lorazepam (Ativan 2mg/ml 1ml) 1 mg Q4H PRN IV agitation 11/25/17 18:00 12/01/17 17:59 Morphine Sulfate (Morphine Sulfate) 2 mg Q4H PRN IVP severe Pain (Pain Scale 7-10) 11/25/17 18:00 12/01/17 17:59 Nitroglycerin (Ntg) 0.4 mg Q5M X 3 DOSES PRN SL Prn Chest Pain 11/25/17 17:45 12/24/17 06:59 Ondansetron HCl (Zofran) 4 mg Q6H PRN IVP Nausea & Vomiting 11/25/17 18:00 12/24/17 17:59 Pantoprazole (Protonix) 40 mg DAILY IV 11/26/17 09:00 12/24/17 08:59 11/26/17 08:38 Piperacillin Sod/ Tazobactam Sod 4.5 gm/Sodium Chloride 110 ml @ 27.5 mls/hr EVERY 8 HOURS IVPB 11/25/17 22:00 11/30/17 21:59 11/27/17 05:37 Polyethylene Glycol (Miralax) 17 gm HSPRN PRN ORAL Constipation 11/25/17 18:00 12/25/17 17:59 Promethazine HCl (Phenergan) 25 mg Q8H PRN IV refractory nausea 11/25/17 18:00 12/24/17 17:59 Temazepam (Restoril) 15 mg HSPRN PRN ORAL Insomnia 11/25/17 18:00 12/02/17 17:59 11/25/17 20:44 ISELA LIM Nov 27, 2017 08:38
[2017-11-27] MEDS: HydrALAZINE 50mg tab GT SCH ×2 (08:45→21:37)
[2017-11-27] MEDS: Heparin 5000 units/ml inj SUBQ SCH ×2 (08:46→21:35)
[2017-11-27 08:48] LABS: ALANINE AMINOTRANSFERASE 54 U/L (12-78); ALBUMIN 2.5 G/DL (3.4-5.0); ALBUMIN/GLOBULIN RATIO 0.5 (1.0-2.7); ALKALINE PHOSPHATASE 65 U/L (46-116); ANION GAP 9 mmol/L (5-15); ASPARTATE AMINO TRANSFERASE 16 U/L (15-37); BILIRUBIN,TOTAL 0.3 MG/DL (0.2-1.0); BLOOD UREA NITROGEN 19 mg/dL (7-18); CALCIUM 8.9 MG/DL (8.5-10.1); CARBON DIOXIDE 29 MMOL/L (21-32); CHLORIDE 113 MMOL/L (98-107); CREATININE 0.7 MG/DL (0.55-1.30); POTASSIUM 3.1 MMOL/L (3.5-5.1); SODIUM 151 MMOL/L (136-145)
[2017-11-27] MEDS: Pantoprazole Inj IV SCH (08:48)
[2017-11-27 09:16] LABS: PHOSPHORUS 2.5 MG/DL (2.5-4.9)
[2017-11-27 12:00] VITALS: BP 143/87
--- NOTE | 2017-11-27 13:33 | General Progress Note ---
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 Objective Last 24 Hour Vital Signs Date Time Temp Pulse Resp B/P (MAP) Pulse Ox O2 Delivery O2 Flow Rate FiO2 11/27/17 13:25 T-piece 6.0 28 11/27/17 13:23 98 T-piece 6.0 28 11/27/17 12:00 98.4 93 20 143/87 99 T-piece 40 11/27/17 09:43 98.4 11/27/17 08:45 150/88 11/27/17 08:44 89 150/88 11/27/17 08:00 99.7 89 20 150/88 99 T-piece 40 11/27/17 08:00 88 11/27/17 06:15 99 T-piece 10.0 40 11/27/17 06:15 T-piece 10.0 40 11/27/17 04:24 98.4 97 18 132/79 97 Nasal Cannula 11/27/17 04:00 86 11/27/17 03:44 T-piece 10.0 40 11/27/17 03:43 97 T-piece 10.0 40 11/27/17 00:07 96.3 98 18 130/82 97 Room Air 11/27/17 00:00 88 11/26/17 20:59 140/85 11/26/17 20:17 T-piece 10.0 40 11/26/17 20:16 97 T-piece 10.0 40 11/26/17 20:00 82 11/26/17 19:54 99.0 95 18 140/85 97 Room Air 11/26/17 18:20 98.1 91 19 125/82 T-piece 40 11/26/17 18:00 93 11/26/17 16:00 98.1 91 19 125/82 96 T-piece 40 11/26/17 13:41 T-piece 10.0 35 11/26/17 13:40 97 T-piece 10.0 35 Intake and Output 11/26/17 11/27/17 19:00 07:00 Intake Total 510 ml Output Total 250 ml 300 ml Balance 260 ml -300 ml Tube Feeding 60 ml Other 450 ml Output Urine Total 250 ml 300 ml # Bowel Movements 1 Laboratory Tests 11/27/17 06:50: White Blood Count 9.6, Red Blood Count 3.41L, Hemoglobin 10.5L, Hematocrit 33.3L , Mean Corpuscular Volume 98, Mean Corpuscular Hemoglobin 30.9, Mean Corpuscular Hemoglobin Concent 31.6L, Red Cell Distribution Width 16.6H, Platelet Count 504H, Mean Platelet Volume 6.1L, Neutrophils (%) (Auto) 71.8, Lymphocytes (%) (Auto) 16.8L, Monocytes (%) (Auto) 7.1, Eosinophils (%) (Auto) 3.3H, Basophils (%) (Auto) 1.0, Sodium Level 151H, Potassium Level 3.1L, Chloride Level 113H, Carbon Dioxide Level 29, Anion Gap 9, Blood Urea Nitrogen 19H, Creatinine 0.7, Estimat Glomerular Filtration Rate > 60, Glucose Level 141H , Calcium Level 8.9, Phosphorus Level 2.5, Magnesium Level 2.1, Total Bilirubin 0.3, Aspartate Amino Transf (AST/SGOT) 16, Alanine Aminotransferase (ALT/SGPT) 54, Alkaline Phosphatase 65, C-Reactive Protein, Quantitative 2.4H, Total Protein 7.9, Albumin 2.5L, Globulin 5.4, Albumin/Globulin Ratio 0.5L Height (Feet): 6 Height (Inches): 1.00 Weight (Pounds): 160 Objective WDWN NCAT Coarse BS RR soft ND NT, (+) GT no edema OBS ANTIONEYOLANDE ROONEY Nov 27, 2017 13:33
--- NOTE | 2017-11-27 13:43 | Infectious Diseases Prog Note ---
Assessment/Plan Assessment/Plan Assessment: L pyelonephritis w/ abscess; ?proctocolitis- -CT abd/p: Significant left perinephric fat stranding with a focal 4 x 3 cm fluid collection in the lower pole of the left kidney. Findings are concerning for pyelonephritis with renal abscess. No obstructing urinary tract stone noted on the left. Multiple small stones noted layering dependently in the bladder, which has a moderately thickened wall. Subcentimeter stones in the right distal ureter at or near the UVJ with minimal right-sided ureteral thickening/hydroureter. No evidence of hydronephrosis on the right.. These right-sided stones may be only partially obstructing. Correlation with physical exam findings/clinical history and with urinalysis/urine culture commended. Thickening of the rectum and sigmoid with minimal presacral infiltrative change. Findings suggestive of a proctocolitis. If patient has had fecal disimpaction recently, this could represent sequela of residual stercoral colitis. Alternatively these could resent sequela of prior radiation to the pelvis. Please correlate clinically. No evidence of bowel obstruction or free intraperitoneal air. Airspace consolidation in the lower lobe with suggestion of tree-in-bud opacities. These findings could represent pneumonia or aspiration. -Bcx NTD -u/a wbc 5-10,nit+, leuk +3; ucx p Possible PNA vs aspiration pneumonitis -CXR: Left basilar opacities and possible trace left pleural effusion. Although findings may be related to subsegmental atelectasis, pneumonia not entirely excluded. -sp cx p Leukocytosis, resolved- 2ry to above Fever, improving Elevated lipase- ?pancreatitis -CT abd/p: Pancreas with some dense calcifications in the pancreatic head and body, likely sequela of prior infection/inflammation. HTN chronic resp failure on trach s/p PEG, non verbal Plan: -Continue Zosyn # 4 for renal abscess and possible proctocolitis and PNA pending cx ; will need IV abx tx for 4 weeks -if worsening fevers, leukocytosis or resp status, add IV Vancomycin -Discussed with IR physician given patient vent and difficult positioning and abscess <5mc and HD stable, will hold on IR intervention -low treshold for IR drainage if worsenign fevers/leukocytosis, HD instability -Uro f/u -f/u cx -Monitor CBC/BMP, temperatures -Aspiration precautions -Trach/peg care Subjective Constitutional: Denies: no symptoms, fever, chills, fatigue, anorexia, drenching sweats, other Allergies: Coded Allergies: No Known Allergies (Unverified , 11/23/17) Objective Vital Signs Last 24 Hour Vital Signs Date Time Temp Pulse Resp B/P (MAP) Pulse Ox O2 Delivery O2 Flow Rate FiO2 11/27/17 13:25 T-piece 6.0 28 11/27/17 13:23 98 T-piece 6.0 28 11/27/17 12:00 98.4 93 20 143/87 99 T-piece 40 11/27/17 09:43 98.4 11/27/17 08:45 150/88 11/27/17 08:44 89 150/88 11/27/17 08:00 99.7 89 20 150/88 99 T-piece 40 11/27/17 08:00 88 11/27/17 06:15 99 T-piece 10.0 40 11/27/17 06:15 T-piece 10.0 40 11/27/17 04:24 98.4 97 18 132/79 97 Nasal Cannula 11/27/17 04:00 86 11/27/17 03:44 T-piece 10.0 40 11/27/17 03:43 97 T-piece 10.0 40 11/27/17 00:07 96.3 98 18 130/82 97 Room Air 11/27/17 00:00 88 11/26/17 20:59 140/85 11/26/17 20:17 T-piece 10.0 40 11/26/17 20:16 97 T-piece 10.0 40 11/26/17 20:00 82 11/26/17 19:54 99.0 95 18 140/85 97 Room Air 11/26/17 18:20 98.1 91 19 125/82 T-piece 40 11/26/17 18:00 93 11/26/17 16:00 98.1 91 19 125/82 96 T-piece 40 11/26/17 13:41 T-piece 10.0 35 11/26/17 13:40 97 T-piece 10.0 35 Height (Feet): 6 Height (Inches): 1.00 Weight (Pounds): 160 Respiratory/Chest: lungs clear Cardiovascular: no gallop/murmur Abdomen: non distended Microbiology Date/Time Source Procedure Growth Status 11/24/17 15:00 Sputum Induced Gram Stain - Final Resulted 11/24/17 15:00 Sputum Culture - Preliminary Gram Negative Bacillus 1 Gram Negative Bacillus 2 Gram Negative Bacillus 3 Resulted 11/24/17 15:00 Sacral Wound Gram Stain - Final Resulted 11/24/17 15:00 Wound Culture - Preliminary Gram Negative Bacillus 1 Gram Negative Bacillus 2 Resulted Laboratory Tests Test 11/27/17 06:50 White Blood Count 9.6 K/UL (4.8-10.8) Red Blood Count 3.41 M/UL (4.70-6.10) L Hemoglobin 10.5 G/DL (14.2-18.0) L Hematocrit 33.3 % (42.0-52.0) L Mean Corpuscular Volume 98 FL (80-99) Mean Corpuscular Hemoglobin 30.9 PG (27.0-31.0) Mean Corpuscular Hemoglobin Concent 31.6 G/DL (32.0-36.0) L Red Cell Distribution Width 16.6 % (11.6-14.8) H Platelet Count 504 K/UL (150-450) H Mean Platelet Volume 6.1 FL (6.5-10.1) L Neutrophils (%) (Auto) 71.8 % (45.0-75.0) Lymphocytes (%) (Auto) 16.8 % (20.0-45.0) L Monocytes (%) (Auto) 7.1 % (1.0-10.0) Eosinophils (%) (Auto) 3.3 % (0.0-3.0) H Basophils (%) (Auto) 1.0 % (0.0-2.0) Sodium Level 151 MMOL/L (136-145) H Potassium Level 3.1 MMOL/L (3.5-5.1) L Chloride Level 113 MMOL/L (98-107) H Carbon Dioxide Level 29 MMOL/L (21-32) Anion Gap 9 mmol/L (5-15) Blood Urea Nitrogen 19 mg/dL (7-18) H Creatinine 0.7 MG/DL (0.55-1.30) Estimat Glomerular Filtration Rate > 60 mL/min (>60) Glucose Level 141 MG/DL (74-106) H Calcium Level 8.9 MG/DL (8.5-10.1) Phosphorus Level 2.5 MG/DL (2.5-4.9) Magnesium Level 2.1 MG/DL (1.8-2.4) Total Bilirubin 0.3 MG/DL (0.2-1.0) Aspartate Amino Transf (AST/SGOT) 16 U/L (15-37) Alanine Aminotransferase (ALT/SGPT) 54 U/L (12-78) Alkaline Phosphatase 65 U/L (46-116) C-Reactive Protein, Quantitative 2.4 mg/dL (0.00-0.90) H Total Protein 7.9 G/DL (6.4-8.2) Albumin 2.5 G/DL (3.4-5.0) L Globulin 5.4 g/dL Albumin/Globulin Ratio 0.5 (1.0-2.7) L Current Medications Medications (Trade) Dose Ordered Sig/Sara Route PRN Reason Start Time Stop Time Status Last Admin Dose Admin Acetaminophen (Tylenol) 650 mg Q4H PRN ORAL fever (temp > 100.5F) 11/25/17 18:00 12/24/17 17:59 11/27/17 08:44 Al Hydroxide/Mg Hydroxide (Mylanta II) 30 ml Q6H PRN ORAL dyspepsia 11/25/17 18:00 12/24/17 17:59 Amlodipine Besylate (Norvasc) 10 mg DAILY GT 11/26/17 09:00 12/24/17 08:59 11/27/17 08:44 Clonidine HCl (Catapres Tab) 0.1 mg Q8H PRN GT SBP greater than 160 11/25/17 18:00 12/25/17 17:59 Dextrose 1,000 ml @ 100 mls/hr Q10H IV 11/26/17 14:00 12/26/17 13:59 11/27/17 10:52 Dextrose (Dextrose 50%) STAT PRN IV Hypoglycemia 11/25/17 18:00 12/25/17 17:59 Diphenhydramine HCl (Benadryl) 25 mg Q6H PRN ORAL Itching/Pruritis 11/25/17 18:00 12/24/17 17:59 Heparin Sodium (Porcine) (Heparin 5000 units/ml) 5,000 units EVERY 12 HOURS SUBQ 11/25/17 21:00 12/24/17 08:59 11/27/17 08:46 Hydralazine HCl (Apresoline) 50 mg Q12HR GT 11/25/17 21:00 12/24/17 08:59 11/27/17 08:45 Iron Sucrose 100 mg/Sodium Chloride 60 ml @ 240 mls/hr BEDTIME IV 11/26/17 21:00 11/30/17 21:14 11/26/17 21:00 Lorazepam (Ativan 2mg/ml 1ml) 1 mg Q4H PRN IV agitation 11/25/17 18:00 12/01/17 17:59 Morphine Sulfate (Morphine Sulfate) 2 mg Q4H PRN IVP severe Pain (Pain Scale 7-10) 11/25/17 18:00 12/01/17 17:59 Nitroglycerin (Ntg) 0.4 mg Q5M X 3 DOSES PRN SL Prn Chest Pain 11/25/17 17:45 12/24/17 06:59 Ondansetron HCl (Zofran) 4 mg Q6H PRN IVP Nausea & Vomiting 11/25/17 18:00 12/24/17 17:59 Pantoprazole (Protonix) 40 mg DAILY IV 11/26/17 09:00 12/24/17 08:59 11/27/17 08:48 Piperacillin Sod/ Tazobactam Sod 4.5 gm/Sodium Chloride 110 ml @ 27.5 mls/hr EVERY 8 HOURS IVPB 11/25/17 22:00 11/30/17 21:59 11/27/17 05:37 Polyethylene Glycol (Miralax) 17 gm HSPRN PRN ORAL Constipation 11/25/17 18:00 12/25/17 17:59 Promethazine HCl (Phenergan) 25 mg Q8H PRN IV refractory nausea 11/25/17 18:00 12/24/17 17:59 Temazepam (Restoril) 15 mg HSPRN PRN ORAL Insomnia 11/25/17 18:00 12/02/17 17:59 11/25/17 20:44 WELLINGTON NICHOLS M.D. Nov 27, 2017 13:43
[2017-11-27 16:00] VITALS: BP 143/83
[2017-11-27] MEDS ORDERED: NS 275ml ONE ×2 (16:55→18:53)
[2017-11-27] MEDS ORDERED: Tubing IV Secondary IV ONE ×2 (16:55→18:53)
[2017-11-27] MEDS ORDERED: Tubing Blood Filter IV ONE (16:55)
[2017-11-27] MEDS ORDERED: D5 1/2NS 1000ml IV ONE (18:53)
[2017-11-27] MEDS ORDERED: Morphine Sulfate 2mg/ml Inj IVP PRN (19:30)
[2017-11-27] MEDS ORDERED: Nitroglycerin Subl 0.4mg tab SL PRN (19:30)
[2017-11-27] MEDS ORDERED: LORazepam Inj 2mg/ml 1ml IV PRN (19:30)
[2017-11-27] MEDS ORDERED: Miralax 17gm pkt ORAL PRN (19:30)
[2017-11-27 20:00] VITALS: BP 153/91
[2017-11-27] MEDS: Iron Sucrose 100 MG in NS 55 ML IV SCH (21:34)
[2017-11-28] VITALS (7 sets, daily range): BP systolic 114–163; BP diastolic 66–92
[2017-11-28] MEDS: Piperacillin/Tazobactam 4.5 GM in NS 110 ML IVPB SCH ×3 (05:48→21:44)
[2017-11-28 08:31] LABS: BASOPHILS % (AUTO) 0.8 % (0.0-2.0); EOSINOPHILS % (AUTO) 5.2 % (0.0-3.0); HEMATOCRIT 32.2 % (42.0-52.0); HEMOGLOBIN 10.3 G/DL (14.2-18.0); LYMPHOCYTES % (AUTO) 19.1 % (20.0-45.0); MEAN CORPUSCULAR VOLUME 98 FL (80-99); MONOCYTES % (AUTO) 7.7 % (1.0-10.0); NEUTROPHILS % (AUTO) 67.2 % (45.0-75.0); PLATELET COUNT 449 K/UL (150-450); RED BLOOD COUNT 3.29 M/UL (4.70-6.10); RED CELL DISTRIBUTION WIDTH 16.5 % (11.6-14.8); WHITE BLOOD COUNT 9.3 K/UL (4.8-10.8)
[2017-11-28] MEDS: HydrALAZINE 50mg tab GT SCH ×2 (08:52→21:15)
[2017-11-28] MEDS: Pantoprazole Inj IV SCH (08:53)
[2017-11-28 08:56] LABS: ALANINE AMINOTRANSFERASE 47 U/L (12-78); ALBUMIN 2.5 G/DL (3.4-5.0); ALBUMIN/GLOBULIN RATIO 0.5 (1.0-2.7); ALKALINE PHOSPHATASE 63 U/L (46-116); ANION GAP 7 mmol/L (5-15); ASPARTATE AMINO TRANSFERASE 16 U/L (15-37); BILIRUBIN,TOTAL 0.3 MG/DL (0.2-1.0); BLOOD UREA NITROGEN 20 mg/dL (7-18); CALCIUM 8.8 MG/DL (8.5-10.1); CARBON DIOXIDE 30 MMOL/L (21-32); CHLORIDE 108 MMOL/L (98-107); CREATININE 0.6 MG/DL (0.55-1.30); PHOSPHORUS 2.5 MG/DL (2.5-4.9); POTASSIUM 2.9 MMOL/L (3.5-5.1); SODIUM 145 MMOL/L (136-145)
[2017-11-28] MEDS: Heparin 5000 units/ml inj SUBQ SCH ×2 (08:57→21:14)
--- NOTE | 2017-11-28 11:05 | Pulmonology Progress Note ---
Assessment/Plan Problems: (1) Renal abscess (2) Hypokalemia (3) Severe anemia (4) Pancreatitis (5) Feeding by G-tube (6) Status post tracheostomy Assessment/Plan improving IV fluids to Dvw continue abx, check cultures, sensitivity pending, check Na, K supplement med/surg dc probably in a few days Subjective ROS Limited/Unobtainable: No Constitutional: Reports: no symptoms HEENT: Repors: no symptoms Respiratory: Reports: no symptoms Allergies: Coded Allergies: No Known Allergies (Unverified , 11/23/17) Objective Last 24 Hour Vital Signs Date Time Temp Pulse Resp B/P (MAP) Pulse Ox O2 Delivery O2 Flow Rate FiO2 11/28/17 08:56 97.6 73 21 114/79 98 11/28/17 08:52 132/77 11/28/17 08:52 79 132/77 11/28/17 08:49 79 132/77 11/28/17 08:10 98 T-piece 6.0 28 11/28/17 08:10 T-piece 6.0 28 11/28/17 05:08 163/93 11/28/17 04:00 98.6 89 20 163/92 98 Room Air 11/28/17 04:00 T-piece 5.0 28 11/28/17 01:35 T-piece 6.0 28 11/28/17 01:34 98 T-piece 6.0 28 11/28/17 00:00 97.7 96 22 146/91 97 Nasal Cannula 11/28/17 00:00 T-piece 5.0 28 11/27/17 21:37 153/91 11/27/17 20:00 98.1 94 22 153/91 99 Room Air 11/27/17 20:00 T-piece 5.0 28 11/27/17 19:30 98 T-piece 6.0 28 11/27/17 19:30 T-piece 6.0 28 11/27/17 16:00 98.4 92 20 143/83 97 T-piece 40 11/27/17 13:25 T-piece 6.0 28 11/27/17 13:23 98 T-piece 6.0 28 11/27/17 12:00 89 11/27/17 12:00 98.4 93 20 143/87 99 T-piece 40 Intake and Output 11/27/17 11/28/17 19:00 07:00 Intake Total 970.0 ml 1547.5 ml Balance 970.0 ml 1547.5 ml Intake Free Water 150 ml IV Total 910.0 ml 677.5 ml Tube Feeding 60 ml 720 ml # Voids 3 Objective General Appearance: WD/WN HEENT: normocephalic, atraumatic Respiratory/Chest: chest wall non-tender, lungs clear Cardiovascular: normal peripheral pulses, normal rate Abdomen: normal bowel sounds, soft, non tender, no organomegaly Extremities: no cyanosis Skin: no lesions Laboratory Tests 11/28/17 06:30: White Blood Count 9.3, Red Blood Count 3.29L, Hemoglobin 10.3L, Hematocrit 32.2L , Mean Corpuscular Volume 98, Mean Corpuscular Hemoglobin 31.4H, Mean Corpuscular Hemoglobin Concent 32.2, Red Cell Distribution Width 16.5H, Platelet Count 449, Mean Platelet Volume 6.3L, Neutrophils (%) (Auto) 67.2, Lymphocytes (%) (Auto) 19.1L, Monocytes (%) (Auto) 7.7, Eosinophils (%) (Auto) 5.2H, Basophils (%) (Auto) 0.8, Sodium Level 145, Potassium Level 2.9L, Chloride Level 108H, Carbon Dioxide Level 30, Anion Gap 7, Blood Urea Nitrogen 20H, Creatinine 0.6, Estimat Glomerular Filtration Rate > 60, Glucose Level 136H , Calcium Level 8.8, Phosphorus Level 2.5, Magnesium Level 2.1, Total Bilirubin 0.3, Aspartate Amino Transf (AST/SGOT) 16, Alanine Aminotransferase (ALT/SGPT) 47, Alkaline Phosphatase 63, Total Protein 7.7, Albumin 2.5L, Globulin 5.2, Albumin/Globulin Ratio 0.5L Current Medications Medications (Trade) Dose Ordered Sig/Sara Route PRN Reason Start Time Stop Time Status Last Admin Dose Admin Acetaminophen (Tylenol) 650 mg Q4H PRN ORAL fever (temp > 100.5F) 11/27/17 19:30 12/24/17 19:29 Al Hydroxide/Mg Hydroxide (Mylanta II) 30 ml Q6H PRN ORAL dyspepsia 11/28/17 19:30 12/24/17 19:29 Amlodipine Besylate (Norvasc) 10 mg DAILY GT 11/28/17 09:00 12/24/17 08:59 11/28/17 08:52 Clonidine HCl (Catapres Tab) 0.1 mg Q8H PRN GT SBP greater than 160 11/27/17 19:30 12/27/17 19:29 11/28/17 05:08 Dextrose 1,000 ml @ 100 mls/hr Q10H IV 11/27/17 20:00 12/26/17 19:59 11/28/17 05:48 Dextrose (Dextrose 50%) STAT PRN IV Hypoglycemia 11/27/17 19:30 12/27/17 19:29 Diphenhydramine HCl (Benadryl) 25 mg Q6H PRN ORAL Itching/Pruritis 11/27/17 19:30 12/27/17 19:29 Heparin Sodium (Porcine) (Heparin 5000 units/ml) 5,000 units EVERY 12 HOURS SUBQ 11/27/17 21:00 12/24/17 08:59 11/28/17 08:57 Hydralazine HCl (Apresoline) 50 mg Q12HR GT 11/27/17 21:00 12/24/17 08:59 11/28/17 08:52 Iron Sucrose 100 mg/Sodium Chloride 60 ml @ 240 mls/hr BEDTIME IV 11/27/17 21:00 11/30/17 21:01 11/27/17 21:34 Lorazepam (Ativan 2mg/ml 1ml) 1 mg Q4H PRN IV agitation 11/27/17 19:30 12/01/17 19:29 Morphine Sulfate (Morphine Sulfate) 2 mg Q4H PRN IVP Severe Pain (Pain Scale 7-10) 11/27/17 19:30 12/01/17 19:29 Nitroglycerin (Ntg) 0.4 mg Q5M X 3 DOSES PRN SL Prn Chest Pain 11/27/17 19:30 12/24/17 19:29 Ondansetron HCl (Zofran) 4 mg Q6H PRN IVP Nausea & Vomiting 11/27/17 19:30 12/27/17 19:29 Pantoprazole (Protonix) 40 mg DAILY IV 11/28/17 09:00 12/24/17 08:59 11/28/17 08:53 Piperacillin Sod/ Tazobactam Sod 4.5 gm/Sodium Chloride 110 ml @ 27.5 mls/hr EVERY 8 HOURS IVPB 11/27/17 22:00 12/02/17 21:59 11/28/17 05:48 Polyethylene Glycol (Miralax) 17 gm HSPRN PRN ORAL Constipation 11/27/17 19:30 12/27/17 19:29 Promethazine HCl (Phenergan) 25 mg Q8H PRN IV refractory nausea 11/27/17 19:30 12/27/17 19:29 Temazepam (Restoril) 15 mg HSPRN PRN ORAL Insomnia 11/27/17 19:30 12/04/17 19:29 ISELA LIM Nov 28, 2017 11:05
[2017-11-28] MEDS ORDERED: Potassium Chloride 40 MEQ in Sodium Chloride 500ML 550 ML IVPB ONE (13:00)
--- NOTE | 2017-11-28 13:40 | Diagnostic Imaging Report ---
Indication: Abdominal distention Technique: XRAY Abdomen 1v Comparison: Correlation made to CT of the abdomen 11/23/2012 Findings: There is marked gaseous distention of the rectosigmoid colon measuring up to 17 cm in diameter. No evidence to suggest free intraperitoneal air however evaluation is limited without upright views. No acute osseous abnormality seen. Impression: Marked gaseous distention of the rectosigmoid colon. Findings concerning for possible impaction or other obstruction. Correlate clinically. Consider rectal exam. No evidence of free intraperitoneal air at this time however sensitivity is limited without upright view. Findings were discussed via telephone conversation with the charge nurse on 4E at approximately 13:30 on 11/28/17.
[2017-11-28] MEDS ORDERED: Tubing IV Secondary IV ONE (14:33)
[2017-11-28] MEDS ORDERED: Sterile Water Irrig 1000ml IRRIG ONE (14:33)
--- NOTE | 2017-11-28 18:35 | General Progress Note ---
Assessment/Plan Assessment/Plan Assessment/Plan Problems: (1) Renal abscess (2) Hypokalemia (3) Severe anemia (4) Pancreatitis (5) Dysphagia / Feeding by G-tube (6) Status post tracheostomy (7) mucoid BM and colonic dilation - r/o C Diff Assessment/Plan Check C diff Rectal tube to gravity follow abd exam continue abx, check cultures, sensitivity pending, Subjective Allergies: Coded Allergies: No Known Allergies (Unverified , 11/23/17) Subjective Above noted tolerating TF d/w staff therapist non communicative GT occluded --> changed at bedside Abd distended --> rectal tube placed at bedside Objective Last 24 Hour Vital Signs Date Time Temp Pulse Resp B/P (MAP) Pulse Ox O2 Delivery O2 Flow Rate FiO2 11/28/17 16:00 97.2 83 21 121/66 98 11/28/17 13:32 T-piece 6.0 28 11/28/17 13:32 98 T-piece 6.0 28 11/28/17 11:37 97.6 84 21 126/76 97 11/28/17 08:57 98 T-piece 5.0 28 11/28/17 08:56 97.6 73 21 114/79 98 11/28/17 08:52 132/77 11/28/17 08:52 79 132/77 11/28/17 08:49 79 132/77 11/28/17 08:10 98 T-piece 6.0 11/28/17 08:10 T-piece 6.0 11/28/17 05:08 163/93 11/28/17 04:00 98.6 89 20 163/92 98 Room Air 11/28/17 04:00 T-piece 5.0 11/28/17 01:35 T-piece 6.0 11/28/17 01:34 98 T-piece 6.0 11/28/17 00:00 97.7 96 22 146/91 97 Nasal Cannula 11/28/17 00:00 T-piece 5.0 11/27/17 21:37 153/91 11/27/17 20:00 98.1 94 22 153/91 99 Room Air 11/27/17 20:00 T-piece 5.0 28 11/27/17 19:30 98 T-piece 6.0 11/27/17 19:30 T-piece 6.0 28 Intake and Output 11/27/17 11/28/17 19:00 07:00 Intake Total 970.0 ml 1547.5 ml Balance 970.0 ml 1547.5 ml Free Water 150 ml IV Total 910.0 ml 677.5 ml Tube Feeding 60 ml 720 ml # Voids 3 Laboratory Tests 11/28/17 06:30: White Blood Count 9.3, Red Blood Count 3.29L, Hemoglobin 10.3L, Hematocrit 32.2L , Mean Corpuscular Volume 98, Mean Corpuscular Hemoglobin 31.4H, Mean Corpuscular Hemoglobin Concent 32.2, Red Cell Distribution Width 16.5H, Platelet Count 449, Mean Platelet Volume 6.3L, Neutrophils (%) (Auto) 67.2, Lymphocytes (%) (Auto) 19.1L, Monocytes (%) (Auto) 7.7, Eosinophils (%) (Auto) 5.2H, Basophils (%) (Auto) 0.8, Sodium Level 145, Potassium Level 2.9L, Chloride Level 108H, Carbon Dioxide Level 30, Anion Gap 7, Blood Urea Nitrogen 20H, Creatinine 0.6, Estimat Glomerular Filtration Rate > 60, Glucose Level 136H , Calcium Level 8.8, Phosphorus Level 2.5, Magnesium Level 2.1, Total Bilirubin 0.3, Aspartate Amino Transf (AST/SGOT) 16, Alanine Aminotransferase (ALT/SGPT) 47, Alkaline Phosphatase 63, Total Protein 7.7, Albumin 2.5L, Globulin 5.2, Albumin/Globulin Ratio 0.5L Height (Feet): 6 Height (Inches): 1.00 Weight (Pounds): 160 Objective WDWN NCAT Coarse BS RR soft distended NT, (+) GT --> replaced Rectal tube placed --> extensive air and some mucoid stool out no edema OBS YOLANDE COTTO Nov 28, 2017 18:35
[2017-11-28] MEDS ORDERED: Mylanta II UD 30ml ORAL PRN (19:30)
[2017-11-28] MEDS: Iron Sucrose 100 MG in NS 55 ML IV SCH (21:11)
[2017-11-29] VITALS: BP 149/87
[2017-11-29 04:00] VITALS: BP 107/64
[2017-11-29] MEDS: Piperacillin/Tazobactam 4.5 GM in NS 110 ML IVPB SCH (05:34)
[2017-11-29 07:44] LABS: BASOPHILS % (AUTO) 1.2 % (0.0-2.0); EOSINOPHILS % (AUTO) 7.1 % (0.0-3.0); HEMOGLOBIN 10.3 G/DL (14.2-18.0); LYMPHOCYTES % (AUTO) 16.2 % (20.0-45.0); MEAN CORPUSCULAR VOLUME 97 FL (80-99); MONOCYTES % (AUTO) 8.1 % (1.0-10.0); NEUTROPHILS % (AUTO) 67.4 % (45.0-75.0); PLATELET COUNT 409 K/UL (150-450); RED BLOOD COUNT 3.39 M/UL (4.70-6.10); RED CELL DISTRIBUTION WIDTH 16.6 % (11.6-14.8); WHITE BLOOD COUNT 8.3 K/UL (4.8-10.8)
[2017-11-29 08:00] VITALS: BP 135/84
[2017-11-29 08:30] LABS: ALANINE AMINOTRANSFERASE 42 U/L (12-78); ALBUMIN 2.5 G/DL (3.4-5.0); ALBUMIN/GLOBULIN RATIO 0.5 (1.0-2.7); ALKALINE PHOSPHATASE 61 U/L (46-116); ANION GAP 8 mmol/L (5-15); ASPARTATE AMINO TRANSFERASE 17 U/L (15-37); BILIRUBIN,TOTAL 0.3 MG/DL (0.2-1.0); BLOOD UREA NITROGEN 18 mg/dL (7-18); CALCIUM 8.8 MG/DL (8.5-10.1); CARBON DIOXIDE 29 MMOL/L (21-32); CHLORIDE 108 MMOL/L (98-107); CREATININE 0.7 MG/DL (0.55-1.30); PHOSPHORUS 2.8 MG/DL (2.5-4.9); POTASSIUM 3.2 MMOL/L (3.5-5.1); SODIUM 145 MMOL/L (136-145)
[2017-11-29] MEDS: Pantoprazole Inj IV SCH (08:36)
[2017-11-29] MEDS: HydrALAZINE 50mg tab GT SCH (08:37)
[2017-11-29] MEDS: Heparin 5000 units/ml inj SUBQ SCH (08:42)
--- NOTE | 2017-11-29 10:26 | Infectious Diseases Prog Note ---
Assessment/Plan Assessment/Plan Assessment: L pyelonephritis w/ abscess; -CT abd/p: Significant left perinephric fat stranding with a focal 4 x 3 cm fluid collection in the lower pole of the left kidney. Findings are concerning for pyelonephritis with renal abscess. ?proctocolitis: CT: Thickening of the rectum and sigmoid with minimal presacral infiltrative change. Findings suggestive of a proctocolitis Possible PNA vs aspiration pneumonitis: Scx: Sacral Wnd : ESBL Kleb and Provid Airspace consolidation in the lower lobe with suggestion of tree-in-bud opacities. These findings could represent pneumonia or aspiration Leukocytosis, SP Fever, SP Sacral Wnd : ESBL Kleb and P Mirabilis Elevated lipase- ?pancreatitis -CT abd/p: Pancreas with some dense calcifications in the pancreatic head and body, likely sequela of prior infection/inflammation. HTN chronic resp failure on trach s/p PEG, non verbal Plan: -Continue IV Merrem d# , upon DC will changet to Invanz to complete the course and DC Zosyn # 6 -Discussed with IR physician given patient vent and difficult positioning and abscess <5mc and HD stable, will hold on IR intervention -low treshold for IR drainage if worsenign fevers/leukocytosis, HD instability -Uro f/u -f/u cx ( Ucx ) -Monitor CBC/BMP, temperatures -Aspiration precautions -Trach/peg care Subjective Allergies: Coded Allergies: No Known Allergies (Unverified , 11/23/17) Subjective afebrile Objective Vital Signs Last 24 Hour Vital Signs Date Time Temp Pulse Resp B/P (MAP) Pulse Ox O2 Delivery O2 Flow Rate FiO2 11/29/17 08:37 135/84 11/29/17 08:36 81 135/84 11/29/17 08:00 97.2 81 21 135/84 99 T-piece 6.0 28 11/29/17 07:20 T-piece 6.0 28 11/29/17 07:20 98 T-piece 6.0 28 11/29/17 04:00 97.0 83 21 107/64 97 11/29/17 04:00 T-piece 5.0 28 11/29/17 01:44 T-piece 6.0 28 11/29/17 01:44 97 T-piece 6.0 28 11/29/17 00:00 98.7 98 20 149/87 97 11/29/17 00:00 T-piece 5.0 28 11/28/17 21:15 135/72 11/28/17 20:00 97.2 90 20 135/72 97 11/28/17 20:00 T-piece 5.0 28 11/28/17 19:20 T-piece 6.0 28 11/28/17 19:20 96 T-piece 6.0 28 11/28/17 16:00 97.2 83 21 121/66 98 11/28/17 13:32 T-piece 6.0 28 11/28/17 13:32 98 T-piece 6.0 28 11/28/17 11:37 97.6 84 21 126/76 97 Height (Feet): 6 Height (Inches): 1.00 Weight (Pounds): 160 HEENT: anicteric Respiratory/Chest: normal breath sounds Cardiovascular: regular rhythm Abdomen: no organomegaly Microbiology Date/Time Source Procedure Growth Status 11/28/17 14:30 Stool Clostridium difficile Toxin Assay - Final Complete Laboratory Tests Test 11/29/17 06:45 White Blood Count 8.3 K/UL (4.8-10.8) Red Blood Count 3.39 M/UL (4.70-6.10) L Hemoglobin 10.3 G/DL (14.2-18.0) L Hematocrit 33.0 % (42.0-52.0) L Mean Corpuscular Volume 97 FL (80-99) Mean Corpuscular Hemoglobin 30.5 PG (27.0-31.0) Mean Corpuscular Hemoglobin Concent 31.3 G/DL (32.0-36.0) L Red Cell Distribution Width 16.6 % (11.6-14.8) H Platelet Count 409 K/UL (150-450) Mean Platelet Volume 7.0 FL (6.5-10.1) Neutrophils (%) (Auto) 67.4 % (45.0-75.0) Lymphocytes (%) (Auto) 16.2 % (20.0-45.0) L Monocytes (%) (Auto) 8.1 % (1.0-10.0) Eosinophils (%) (Auto) 7.1 % (0.0-3.0) H Basophils (%) (Auto) 1.2 % (0.0-2.0) Sodium Level 145 MMOL/L (136-145) Potassium Level 3.2 MMOL/L (3.5-5.1) L Chloride Level 108 MMOL/L (98-107) H Carbon Dioxide Level 29 MMOL/L (21-32) Anion Gap 8 mmol/L (5-15) Blood Urea Nitrogen 18 mg/dL (7-18) Creatinine 0.7 MG/DL (0.55-1.30) Estimat Glomerular Filtration Rate > 60 mL/min (>60) Glucose Level 134 MG/DL (74-106) H Calcium Level 8.8 MG/DL (8.5-10.1) Phosphorus Level 2.8 MG/DL (2.5-4.9) Magnesium Level 2.1 MG/DL (1.8-2.4) Total Bilirubin 0.3 MG/DL (0.2-1.0) Aspartate Amino Transf (AST/SGOT) 17 U/L (15-37) Alanine Aminotransferase (ALT/SGPT) 42 U/L (12-78) Alkaline Phosphatase 61 U/L (46-116) Total Protein 7.4 G/DL (6.4-8.2) Albumin 2.5 G/DL (3.4-5.0) L Globulin 4.9 g/dL Albumin/Globulin Ratio 0.5 (1.0-2.7) L Current Medications Medications (Trade) Dose Ordered Sig/Sraa Route PRN Reason Start Time Stop Time Status Last Admin Dose Admin Acetaminophen (Tylenol) 650 mg Q4H PRN ORAL fever (temp > 100.5F) 11/27/17 19:30 12/24/17 19:29 Al Hydroxide/Mg Hydroxide (Mylanta II) 30 ml Q6H PRN ORAL dyspepsia 11/28/17 19:30 12/24/17 19:29 Amlodipine Besylate (Norvasc) 10 mg DAILY GT 11/28/17 09:00 12/24/17 08:59 11/29/17 08:36 Clonidine HCl (Catapres Tab) 0.1 mg Q8H PRN GT SBP greater than 160 11/27/17 19:30 12/27/17 19:29 11/28/17 05:08 Dextrose 1,000 ml @ 100 mls/hr Q10H IV 11/27/17 20:00 12/26/17 19:59 11/29/17 01:38 Dextrose (Dextrose 50%) STAT PRN IV Hypoglycemia 11/27/17 19:30 12/27/17 19:29 Diphenhydramine HCl (Benadryl) 25 mg Q6H PRN ORAL Itching/Pruritis 11/27/17 19:30 12/27/17 19:29 Heparin Sodium (Porcine) (Heparin 5000 units/ml) 5,000 units EVERY 12 HOURS SUBQ 11/27/17 21:00 12/24/17 08:59 11/29/17 08:42 Hydralazine HCl (Apresoline) 50 mg Q12HR GT 11/27/17 21:00 12/24/17 08:59 11/29/17 08:37 Iron Sucrose 100 mg/Sodium Chloride 60 ml @ 240 mls/hr BEDTIME IV 11/27/17 21:00 11/30/17 21:01 11/28/17 21:11 Lorazepam (Ativan 2mg/ml 1ml) 1 mg Q4H PRN IV agitation 11/27/17 19:30 12/01/17 19:29 Morphine Sulfate (Morphine Sulfate) 2 mg Q4H PRN IVP Severe Pain (Pain Scale 7-10) 11/27/17 19:30 12/01/17 19:29 Nitroglycerin (Ntg) 0.4 mg Q5M X 3 DOSES PRN SL Prn Chest Pain 11/27/17 19:30 12/24/17 19:29 Ondansetron HCl (Zofran) 4 mg Q6H PRN IVP Nausea & Vomiting 11/27/17 19:30 12/27/17 19:29 Pantoprazole (Protonix) 40 mg DAILY IV 11/28/17 09:00 12/24/17 08:59 11/29/17 08:36 Piperacillin Sod/ Tazobactam Sod 4.5 gm/Sodium Chloride 110 ml @ 27.5 mls/hr EVERY 8 HOURS IVPB 11/27/17 22:00 12/02/17 21:59 11/29/17 05:34 Polyethylene Glycol (Miralax) 17 gm HSPRN PRN ORAL Constipation 11/27/17 19:30 12/27/17 19:29 Promethazine HCl (Phenergan) 25 mg Q8H PRN IV refractory nausea 11/27/17 19:30 12/27/17 19:29 Temazepam (Restoril) 15 mg HSPRN PRN ORAL Insomnia 11/27/17 19:30 12/04/17 19:29 WELLINGTON NICHOLS M.D. Nov 29, 2017 10:26
--- NOTE | 2017-11-29 11:01 | GI Progress Note ---
Assessment/Plan Problems: (1) Feeding by G-tube ICD Codes: Z93.1 - Gastrostomy status SNOMED: 125181523, 665539285 (2) Severe anemia ICD Codes: D64.9 - Anemia, unspecified SNOMED: 355004926 (3) Pancreatitis ICD Codes: K85.90 - Acute pancreatitis without necrosis or infection, unspecified SNOMED: 66172910 Status: unchanged Status Narrative Discussed with Dr. Mercedes. Assessment/Plan CT AP reviewed, see full report. >> suggestive of a proctocolitis. No evidence of bowel obstruction or free intraperitoneal air. abdominal U/S reviewed, see full report >> renal abscess elevated lipase >> +3000 >> now normal lipid panel for pancreatitis unremarkable OB stool r/o GI bleed >> negative cdiff negative GT changed, cont GTFs Rectal tube to gravity follow abd exam continue abx check cultures, sensitivity pending, fu labs Subjective Subjective limited Objective Last 24 Hour Vital Signs Date Time Temp Pulse Resp B/P (MAP) Pulse Ox O2 Delivery O2 Flow Rate FiO2 11/29/17 08:37 135/84 11/29/17 08:36 81 135/84 11/29/17 08:00 97.2 81 21 135/84 99 T-piece 6.0 28 11/29/17 07:20 T-piece 6.0 28 11/29/17 07:20 98 T-piece 6.0 28 11/29/17 04:00 97.0 83 21 107/64 97 11/29/17 04:00 T-piece 5.0 28 11/29/17 01:44 T-piece 6.0 28 11/29/17 01:44 97 T-piece 6.0 28 11/29/17 00:00 98.7 98 20 149/87 97 11/29/17 00:00 T-piece 5.0 28 11/28/17 21:15 135/72 11/28/17 20:00 97.2 90 20 135/72 97 11/28/17 20:00 T-piece 5.0 28 11/28/17 19:20 T-piece 6.0 28 11/28/17 19:20 96 T-piece 6.0 28 11/28/17 16:00 97.2 83 21 121/66 98 11/28/17 13:32 T-piece 6.0 28 11/28/17 13:32 98 T-piece 6.0 28 11/28/17 11:37 97.6 84 21 126/76 97 Intake and Output 11/28/17 11/29/17 19:00 07:00 Intake Total 1470.0 ml 1657.5 ml Balance 1470.0 ml 1657.5 ml Intake Oral 0 ml Free Water 200 ml 150 ml IV Total 610.0 ml 787.5 ml Tube Feeding 660 ml 720 ml # Voids 4 Laboratory Tests Test 11/29/17 06:45 White Blood Count 8.3 K/UL (4.8-10.8) Red Blood Count 3.39 M/UL (4.70-6.10) L Hemoglobin 10.3 G/DL (14.2-18.0) L Hematocrit 33.0 % (42.0-52.0) L Mean Corpuscular Volume 97 FL (80-99) Mean Corpuscular Hemoglobin 30.5 PG (27.0-31.0) Mean Corpuscular Hemoglobin Concent 31.3 G/DL (32.0-36.0) L Red Cell Distribution Width 16.6 % (11.6-14.8) H Platelet Count 409 K/UL (150-450) Mean Platelet Volume 7.0 FL (6.5-10.1) Neutrophils (%) (Auto) 67.4 % (45.0-75.0) Lymphocytes (%) (Auto) 16.2 % (20.0-45.0) L Monocytes (%) (Auto) 8.1 % (1.0-10.0) Eosinophils (%) (Auto) 7.1 % (0.0-3.0) H Basophils (%) (Auto) 1.2 % (0.0-2.0) Sodium Level 145 MMOL/L (136-145) Potassium Level 3.2 MMOL/L (3.5-5.1) L Chloride Level 108 MMOL/L (98-107) H Carbon Dioxide Level 29 MMOL/L (21-32) Anion Gap 8 mmol/L (5-15) Blood Urea Nitrogen 18 mg/dL (7-18) Creatinine 0.7 MG/DL (0.55-1.30) Estimat Glomerular Filtration Rate > 60 mL/min (>60) Glucose Level 134 MG/DL (74-106) H Calcium Level 8.8 MG/DL (8.5-10.1) Phosphorus Level 2.8 MG/DL (2.5-4.9) Magnesium Level 2.1 MG/DL (1.8-2.4) Total Bilirubin 0.3 MG/DL (0.2-1.0) Aspartate Amino Transf (AST/SGOT) 17 U/L (15-37) Alanine Aminotransferase (ALT/SGPT) 42 U/L (12-78) Alkaline Phosphatase 61 U/L (46-116) Total Protein 7.4 G/DL (6.4-8.2) Albumin 2.5 G/DL (3.4-5.0) L Globulin 4.9 g/dL Albumin/Globulin Ratio 0.5 (1.0-2.7) L Microbiology Date/Time Source Procedure Growth Status 11/28/17 14:30 Stool Clostridium difficile Toxin Assay - Final Complete Height (Feet): 6 Height (Inches): 1.00 Weight (Pounds): 160 General Appearance: alert Cardiovascular: normal rate Respiratory/Chest: normal breath sounds Abdominal Exam: GT site - c/d/i, other - rectal tube Radha Fournier NArmaan Nov 29, 2017 11:01
--- NOTE | 2017-11-29 11:59 | Pulmonology Progress Note ---
Assessment/Plan Problems: (1) Renal abscess (2) Hypokalemia (3) Severe anemia (4) Pancreatitis (5) Feeding by G-tube (6) Status post tracheostomy Assessment/Plan improving IV fluids to Dvw continue abx, check cultures, sensitivity pending, check Na, K supplement med/surg dc probably in a few days Imipenem started, Subjective ROS Limited/Unobtainable: Yes Constitutional: Reports: no symptoms HEENT: Repors: no symptoms Allergies: Coded Allergies: No Known Allergies (Unverified , 11/23/17) Objective Last 24 Hour Vital Signs Date Time Temp Pulse Resp B/P (MAP) Pulse Ox O2 Delivery O2 Flow Rate FiO2 11/29/17 08:37 135/84 11/29/17 08:36 81 135/84 11/29/17 08:00 97.2 81 21 135/84 99 T-piece 6.0 28 11/29/17 07:20 T-piece 6.0 28 11/29/17 07:20 98 T-piece 6.0 28 11/29/17 04:00 97.0 83 21 107/64 97 11/29/17 04:00 T-piece 5.0 28 11/29/17 01:44 T-piece 6.0 28 11/29/17 01:44 97 T-piece 6.0 28 11/29/17 00:00 98.7 98 20 149/87 97 11/29/17 00:00 T-piece 5.0 28 11/28/17 21:15 135/72 11/28/17 20:00 97.2 90 20 135/72 97 11/28/17 20:00 T-piece 5.0 28 11/28/17 19:20 T-piece 6.0 28 11/28/17 19:20 96 T-piece 6.0 28 11/28/17 16:00 97.2 83 21 121/66 98 11/28/17 13:32 T-piece 6.0 28 11/28/17 13:32 98 T-piece 6.0 28 Intake and Output 11/28/17 11/29/17 19:00 07:00 Intake Total 1470.0 ml 1757.5 ml Balance 1470.0 ml 1757.5 ml Intake Oral 0 ml Free Water 200 ml 150 ml IV Total 610.0 ml 887.5 ml Tube Feeding 660 ml 720 ml # Voids 4 Objective General Appearance: WD/WN HEENT: normocephalic, atraumatic Respiratory/Chest: chest wall non-tender, lungs clear Cardiovascular: normal peripheral pulses, normal rate Abdomen: normal bowel sounds, soft, non tender, no organomegaly Extremities: no cyanosis Skin: no lesions Microbiology Date/Time Source Procedure Growth Status 11/28/17 14:30 Stool Clostridium difficile Toxin Assay - Final Complete Laboratory Tests 11/29/17 06:45: White Blood Count 8.3, Red Blood Count 3.39L, Hemoglobin 10.3L, Hematocrit 33.0L , Mean Corpuscular Volume 97, Mean Corpuscular Hemoglobin 30.5, Mean Corpuscular Hemoglobin Concent 31.3L, Red Cell Distribution Width 16.6H, Platelet Count 409, Mean Platelet Volume 7.0, Neutrophils (%) (Auto) 67.4, Lymphocytes (%) (Auto) 16.2L, Monocytes (%) (Auto) 8.1, Eosinophils (%) (Auto) 7.1H, Basophils (%) (Auto) 1.2, Sodium Level 145, Potassium Level 3.2L, Chloride Level 108H, Carbon Dioxide Level 29, Anion Gap 8, Blood Urea Nitrogen 18, Creatinine 0.7, Estimat Glomerular Filtration Rate > 60, Glucose Level 134H , Calcium Level 8.8, Phosphorus Level 2.8, Magnesium Level 2.1, Total Bilirubin 0.3, Aspartate Amino Transf (AST/SGOT) 17, Alanine Aminotransferase (ALT/SGPT) 42, Alkaline Phosphatase 61, Total Protein 7.4, Albumin 2.5L, Globulin 4.9, Albumin/Globulin Ratio 0.5L Current Medications Medications (Trade) Dose Ordered Sig/Sara Route PRN Reason Start Time Stop Time Status Last Admin Dose Admin Acetaminophen (Tylenol) 650 mg Q4H PRN ORAL fever (temp > 100.5F) 11/27/17 19:30 12/24/17 19:29 Al Hydroxide/Mg Hydroxide (Mylanta II) 30 ml Q6H PRN ORAL dyspepsia 11/28/17 19:30 12/24/17 19:29 Amlodipine Besylate (Norvasc) 10 mg DAILY GT 11/28/17 09:00 12/24/17 08:59 11/29/17 08:36 Clonidine HCl (Catapres Tab) 0.1 mg Q8H PRN GT SBP greater than 160 11/27/17 19:30 12/27/17 19:29 11/28/17 05:08 Dextrose 1,000 ml @ 100 mls/hr Q10H IV 11/27/17 20:00 12/26/17 19:59 11/29/17 11:32 Dextrose (Dextrose 50%) STAT PRN IV Hypoglycemia 11/27/17 19:30 12/27/17 19:29 Diphenhydramine HCl (Benadryl) 25 mg Q6H PRN ORAL Itching/Pruritis 11/27/17 19:30 12/27/17 19:29 Heparin Sodium (Porcine) (Heparin 5000 units/ml) 5,000 units EVERY 12 HOURS SUBQ 11/27/17 21:00 12/24/17 08:59 11/29/17 08:42 Hydralazine HCl (Apresoline) 50 mg Q12HR GT 11/27/17 21:00 12/24/17 08:59 11/29/17 08:37 Iron Sucrose 100 mg/Sodium Chloride 60 ml @ 240 mls/hr BEDTIME IV 11/27/17 21:00 11/30/17 21:01 11/28/17 21:11 Lorazepam (Ativan 2mg/ml 1ml) 1 mg Q4H PRN IV agitation 11/27/17 19:30 12/01/17 19:29 Meropenem 1 gm/ Sodium Chloride 55 ml @ 110 mls/hr Q8HR IVPB 11/29/17 14:00 12/04/17 13:59 Morphine Sulfate (Morphine Sulfate) 2 mg Q4H PRN IVP Severe Pain (Pain Scale 7-10) 11/27/17 19:30 12/01/17 19:29 Nitroglycerin (Ntg) 0.4 mg Q5M X 3 DOSES PRN SL Prn Chest Pain 11/27/17 19:30 12/24/17 19:29 Ondansetron HCl (Zofran) 4 mg Q6H PRN IVP Nausea & Vomiting 11/27/17 19:30 12/27/17 19:29 Pantoprazole (Protonix) 40 mg DAILY IV 11/28/17 09:00 12/24/17 08:59 11/29/17 08:36 Polyethylene Glycol (Miralax) 17 gm HSPRN PRN ORAL Constipation 11/27/17 19:30 12/27/17 19:29 Promethazine HCl (Phenergan) 25 mg Q8H PRN IV refractory nausea 11/27/17 19:30 12/27/17 19:29 Temazepam (Restoril) 15 mg HSPRN PRN ORAL Insomnia 11/27/17 19:30 12/04/17 19:29 ISELA LIM Nov 29, 2017 11:59
[2017-11-29 12:00] VITALS: BP 130/82
[2017-11-29] MEDS ORDERED: INVANZ1 G1 IM (13:02)
[2017-11-29] MEDS ORDERED: Meropenem 1 GM in NS 55 ML IVPB SCH (14:00)
[2017-11-29 16:15] VITALS: BP 130/78
[2017-11-29 20:00] VITALS: BP 138/82
--- NOTE | 2017-12-01 09:57 | Discharge Summary ---
Discharge Summary Hospital Course Date of Admission Nov 23, 2017 at 23:52 Date of Discharge Nov 29, 2017 at 21:00 Admitting Diagnosis anemia, pancreatitis HPI Gwendolyn Barragan is a 67 year old male who was admitted on Nov 23, 2017 at 23:52 for Anemia/Pancreatitis Hospital Course dc summary #[id number] Discharge Medications New Medications: Ertapenem (Invanz) 1 Gm Vial 1 GM IM DAILY for 28 Days, VIAL Continued Medications: Amlodipine Besylate* (Amlodipine Besylate*) 10 Mg Tablet 10 MG GT DAILY, TAB Clonidine Hcl (Clonidine Hcl) 0.1 Mg Tablet 0.1 MG GT, TAB Hydralazine Hcl* (Hydralazine Hcl*) 50 Mg Tablet 50 MG GT BID, TAB Discharge Condition Upon Discharge: stable Discharge Disposition Patient was discharged to SNF Discharge Diagnoses: Discharge Instructions Discharge Instructions Special Instructions I have been assigned to complete a D/C Summary on this account. I was not involved in the patient management Tita Hernandez NP (Vanchtein) Dec 01, 2017 09:57
--- NOTE | 2017-12-02 03:17 | Discharge Summary 2 SIG ---
DATE OF ADMISSION: 11/23/2017 DATE OF DISCHARGE: 11/29/2017 REASON FOR ADMISSION: 67-year-old male with past medical history of chronic respiratory failure, status post tracheostomy, intracerebral hemorrhage, G-tube, diabetes, hypertension, presented to emergency department for evaluation. He was sent from a half-way facility for low hemoglobin and hematocrit. The patient by himself was nonverbal and was unable to provide any information. Vital signs were stable. Pulse oximetry was 95% on 4 liters of oxygen via trach collar, afebrile. Laboratory workup revealed WBC-15.5, hemoglobin -7.8, hematocrit -26.2 with neutrophils -78%. Sodium- 136, potassium -2.9, BUN -28, glucose -131. AST-59, ALT- 153. Troponin negative. Pro BNP- 425. Lipase - 3689. Urinalysis had shown pyuria, positive for leukocyte esterase and nitrite, and few bacteria. CT of the abdomen and pelvis revealed significant left perinephric fat stranding with focal 4 x 3 cm fluid collection in the lower pole of the left lobe. Findings were concerning for pyelonephritis with renal abscess. No obstructing urinary tract stones were noted on the left, multiple small stones noted lying independently in the bladder, which had moderately thickened wall. Thickening of the rectum and sigmoid with minimal presacral infiltrative change suggested proctocolitis. Chest x-ray revealed left base opacity, possible trace left pleural effusion. Findings could be related to subsegmental atelectasis, however, pneumonia was not entirely excluded. The patient was admitted for further management with diagnoses of severe anemia, hypokalemia, pyelonephritis with renal abscess, pancreatitis, and possible pneumonia. HOSPITAL COURSE: The patient was admitted. GI, urology, and ID consults were requested. The patient was started on empiric antibiotic. Sputum culture showed ESBL Klebsiella and Providencia. Blood cultures were negative. Stool for C. difficile was negative. ID specialist recommended urology evaluation and interventional radiology for drainage of the renal abscess. Abdominal ultrasound showed vague hyperdensity in the lower pole of the left kidney measuring up to 4.4 cm corresponding to the region of suspected renal abscess seen on the CT. Urology had seen and evaluated the patient, personally reviewed CT of the abdomen and pelvis and stated that no surgical intervention was necessary at this time. The patient needed to be on the IV antibiotic and be closely observed. Aspiration precautions were maintained. G-tube feeding started. The patient was able to tolerate G-tube feeding. GI followed. The patient was transfused with 2 units of packed red blood cells, and hemoglobin and hematocrit remained stable afterwards. Leukocytosis resolved. Potassium was replaced. LFT and lipase were closely monitored and were trending down. Anemia workup was consistent with anemia of chronic disease and low iron. Iron x1 intravenously was given. Stool OB was negative. GI closely followed. Bowel regimen instituted. The patient was on PPI, noted mucoid bowel movement and diarrhea. The patient had rectal tube, placed to gravity. Stool for C. difficile was negative. Wound care provided as per wound care nurse recommendation for sacral decubitus un-stageable pressure ulcer present on admission. Followup chest x-ray revealed mild base atelectasis. Leukocytosis resolved. hemoglobin -10.3, hematocrit- 33. Transaminitis resolved. Lipase down to 189. The patient was able to tolerate tube feeding. In terms of the respiratory failure, tracheostomy care was provided. Pulmonary toilet provided as needed. Pulse oximetry was stable on current FiO2. The patient was stable for discharge back to half-way facility. FINAL DIAGNOSES: 1. Left pyelonephritis with abscess. 2. Possible proctocolitis. 3. Possible pneumonia with extended-spectrum beta-lactamase Klebsiella and Providencia. 4. Possible aspiration pneumonitis. 5. Acute hypokalemia, resolved. 6. Severe anemia requiring blood transfusion, resolved. 7. Pancreatitis, resolved. 8. Dysphagia, feeding by gastrostomy tube. 9. Tracheostomy status. 10. Sacral un-stageable pressure ulcer, present on admission. DISCHARGE MEDICATIONS: See medication reconciliation list. DISCHARGE INSTRUCTIONS: The patient discharged to half-way facility. Follow up with medical doctor and epic manager at the facility. Recommended to repeat imaging: ultrasound or CT after completion of antibiotics to ensure resolution of abscess. Elma Valdovinos M.D. I have been assigned to dictate discharge summary on this account and I was not involved in the patient's management. Tita Hernandez N.P. (Vanchtein) DR: SADE JOB#: [id number] CC: SLOANE
== END 2017-11-29 21:00 | DRG 463 ==
LOC: EDBD 20:00 → EMR 20:24 → 2W 23:52 → EDBEDREQ 11-24 00:46 → 2E 11-25 17:14 → 4E 11-27 18:49
DX: N10 Acute pyelonephritis (principal); J69.0 Pneumonitis due to inhalation of food and vomit; L89.150 Pressure ulcer of sacral region, unstageable; J15.0 Pneumonia due to Klebsiella pneumoniae; J15.8 Pneumonia due to other specified bacteria; K85.90 Acute pancreatitis without necrosis or infection, unspecified; J96.10 Chronic respiratory failure, unspecified whether with hypoxia or hypercapnia; N15.1 Renal and perinephric abscess; D64.9 Anemia, unspecified; E87.6 Hypokalemia; I10 Essential (primary) hypertension; K51.30 Ulcerative (chronic) rectosigmoiditis without complications; R13.10 Dysphagia, unspecified; Z93.0 Tracheostomy status; Z93.1 Gastrostomy status
CPT/HCPCS: 36415; 71045; 74018; 74177; 76700; 80048; 80053; 80061; 81003; 82150; 82270; 82378; 82607; 82728; 82746; 82962; 83540; 83550; 83605; 83690; 83735; 83880; 84100; 84439; 84443; 84484; 85007; 85025; 85044; 85610; 85730; 86140; 86850; 86900; 86901; 86920; 87040; 87070; 87081; 87181; 87205; 87324; 93005; 94760; 99285; J8499

== ENCOUNTER 2018-04-04 22:11 | Emergency (ER) | payer MEDICAID ==
[~2018-04-04] VITALS: Ht 185.4 cm; Wt 69.4 kg
[~2018-04-04 22:11] MED LIST: AMLODIPINE BESY10 MG GT; CLONIDINE HCL0.1 MG GT; DULCOLAX10 MG RC; HYDRALAZINE HCL50 MG GT; INVANZ1 G1 IM; LOPRESSOR25 M1 GT; MOM30 ML GT; ZOFRAN4 MG GT
--- NOTE | 2018-04-04 22:22 | Emergency Room Report ---
History of Present Illness General Chief Complaint: General Complaint Source: Medical Record, EMS Present Illness HPI This is a 67-year-old Portuguese male from a custodial. He is nonverbal. He has a tracheostomy and a feeding tube. Was brought in here for chief complaint of abdominal distention. X-ray done today show very distended colon. Patient unable to give any complaint or history. No fever chills but no nausea no vomiting. Allergies: Coded Allergies: No Known Allergies (Unverified , 11/23/17) Patient History Past Medical History: see triage record, old chart reviewed Past Surgical History: other Pertinent Family History: none Social History: Denies: smoking Immunizations: other Reviewed Nursing Documentation: PMH: Agreed; PSxH: Agreed Nursing Documentation-PMH Hx Hypertension: Yes - hypokalemia Hx Diabetes: Yes Hx Cancer: No Hx Gastrointestinal Problems: Yes - GASTROSTOMY, tracheostomy, GERD Hx Cerebrovascular Accident: Yes - NON TRAUMATIC INTRACEREBRAL HEMORRHAGE Review of Systems All Other Systems: limited - patient is nonverbal Physical Exam Vital Signs Date Time Temp Pulse Resp B/P (MAP) Pulse Ox O2 Delivery O2 Flow Rate FiO2 04/04/18 22:12 97.8 22 16 137/93 100 Trach Collar 6.0 97.9 Sp02 EP Interpretation: reviewed, normal General Appearance: no apparent distress, Chronically Ill Head: normocephalic, atraumatic Eyes: bilateral eye PERRL, bilateral eye EOMI ENT: hearing grossly normal, normal pharynx Neck: full range of motion, supple, no meningismus, tracheotomy Respiratory: chest non-tender, lungs clear, normal breath sounds Cardiovascular #1: regular rate, rhythm, no murmur Gastrointestinal: normal bowel sounds, non tender, no mass, no organomegaly, no bruit, non-distended, other - abdomen is soft Musculoskeletal: back normal, normal range of motion Psychiatric: mood/affect normal Skin: warm/dry Medical Decision Making Diagnostic Impression: Primary Impression: Proctocolitis without complication Additional Impressions: UTI (urinary tract infection) Qualified Codes: N30.00 - Acute cystitis without hematuria Hypokalemia ER Course She presents with abdominal distention and CT scan showed mild ileus and proctocolitis. No evidence of obstruction. Antibiotic started. We'll discharge back to custodial. Lab Results Impression labs with low potassium CT/MRI/US Diagnostic Results CT/MRI/US Diagnostic Results : Imaging Test Ordered: CT abdomen and pelvis Impression read by radiologist. mild/nonspecific proctocolitis. Ileus Last Vital Signs Date Time Temp Pulse Resp B/P (MAP) Pulse Ox O2 Delivery O2 Flow Rate FiO2 04/04/18 22:12 97.8 22 16 137/93 100 Trach Collar 6.0 97.9 Status: improved Disposition: XFER SNF Condition: Stable Scripts Levofloxacin* (LEVAQUIN*) 500 Mg Tablet 500 MG ORAL DAILY for 7 Days, TAB Prov: SUSAN CEVALLOS M.D. 04/05/18 Additional Instructions: Follow-up with your DrKarl in 2-3 days if not better. Return if worse. SUSAN CEVALLOS M.D. April 04, 2018 22:22
[2018-04-04] MEDS ORDERED: FLEET ENEMA133 ML RECTAL (22:30)
[2018-04-04] MEDS ORDERED: VITAMIN C500 M1 GT (22:30)
[2018-04-04] MEDS ORDERED: HIBICLENS118 ML TP (22:30)
[2018-04-04] MEDS ORDERED: DULCOLAX10 MG RC (22:30)
[2018-04-04] MEDS ORDERED: CATAPRES0.1 MG GT (22:30)
[2018-04-04] MEDS ORDERED: SUPPORT118 ML PO (22:30)
[2018-04-04] MEDS ORDERED: ACETAMINOP160 MG/54 GT (22:35)
[2018-04-04 22:41] VITALS: BP 137/93
[2018-04-04 23:00] LABS: BASOPHILS % (AUTO) 1.5 % (0.0-2.0); HEMATOCRIT 33.4 % (42.0-52.0); HEMOGLOBIN 11.2 G/DL (14.2-18.0); LYMPHOCYTES % (AUTO) 21.8 % (20.0-45.0); MEAN CORPUSCULAR VOLUME 97 FL (80-99); MONOCYTES % (AUTO) 8.6 % (1.0-10.0); NEUTROPHILS % (AUTO) 62.2 % (45.0-75.0); PLATELET COUNT 353 K/UL (150-450); RED BLOOD COUNT 3.43 M/UL (4.70-6.10); RED CELL DISTRIBUTION WIDTH 11.6 % (11.6-14.8); WHITE BLOOD COUNT 9.1 K/UL (4.8-10.8)
[2018-04-04 23:01] LABS: ANION GAP 5 mmol/L (5-15); BLOOD UREA NITROGEN 18 mg/dL (7-18); CALCIUM 9.6 MG/DL (8.5-10.1); CARBON DIOXIDE 38 MMOL/L (21-32); CHLORIDE 101 MMOL/L (98-107); CREATININE 0.7 MG/DL (0.55-1.30); SODIUM 144 MMOL/L (136-145)
[2018-04-04 23:05] LABS: ALANINE AMINOTRANSFERASE 27 U/L (12-78); ALBUMIN 3.6 G/DL (3.4-5.0); ALBUMIN/GLOBULIN RATIO 0.7 (1.0-2.7); ALKALINE PHOSPHATASE 70 U/L (46-116); ASPARTATE AMINO TRANSFERASE 17 U/L (15-37); BILIRUBIN,TOTAL 0.3 MG/DL (0.2-1.0)
[2018-04-04 23:36] VITALS: BP 121/75
[2018-04-04 23:49] LABS: BILIRUBIN, URINE NEGATIVE (NEGATIVE); COLOR,URINE PALE YELLOW; GLUCOSE, URINE (UA) NEGATIVE (NEGATIVE); KETONES,URINE NEGATIVE (NEGATIVE); LEUKOCYTE ESTERASE ,URINE 2+ (NEGATIVE); NITRITE,URINE NEGATIVE (NEGATIVE); PH,URINE 8 (4.5-8.0); PROTEIN,URINE 1+ (NEGATIVE); UROBILINOGEN,URINE NORMAL MG/DL (0.0-1.0)
[2018-04-05 00:07] LABS: APPEARANCE,URINE CLOUDY
[2018-04-05] MEDS ORDERED: cefTRIAXone 1 GM in NS 55 ML IVPB ONE (00:15)
[2018-04-05] MEDS ORDERED: LEVAQUIN500 MG ORAL (00:26)
[2018-04-05 00:45] VITALS: BP 127/73
--- NOTE | 2018-04-05 10:16 | Diagnostic Imaging Report ---
Indication: Abdominal pain and distention Technique: Spiral acquisitions obtained through the abdomen and pelvis. No oral contrast utilized, per emergency room physician request No IV contrast utilized, per referring physician request.. Multiplanar reconstructions were generated. Total dose length product 950.02 mGycm. CTDIvol(s) 16.82 mGy. Dose reduction achieved using automated exposure control Comparison: 11/24/2017 contrast study Findings: Large but otherwise normal-appearing appendix again demonstrated. The sigmoid colon is distended, somewhat more so than previously, but there is no evidence of volvulus or downstream obstructive lesion. The distal sigmoid and rectum is fluid-filled and thick walled. There are a few colonic diverticula. No evidence of diverticulitis There is no small bowel distention. No free or loculated intraperitoneal air or fluid. A gastrostomy is again noted in good position. The distal esophagus, duodenum, and remainder of the stomach are unremarkable. Lack of IV contrast limits assessment of solid organs. The liver, gallbladder, bile ducts, pancreas, spleen, adrenals are unremarkable. There are a few pancreatic head calcifications which may be arterial or parenchymal Previously demonstrated left lower pole renal abscess is not clearly evident on the current exam. There is some residual perinephric fat stranding and urothelial thickening, but this is considerably decreased from the previous exam. Bilateral renal cysts are less well demonstrated than on the prior contrast study. Calcifications in the right renal sinus are probably calyceal. There is no hydronephrosis. No ureteral calculi, or hydroureter. Previously demonstrated distal right ureteral calculus is no longer evident. Calcifications are again demonstrated within the bladder, perhaps slightly more extensive than the prior exam. The bladder is more distended than previously, and previously demonstrated apparent bladder wall thickening is less striking currently. As previously, considerable consolidation and atelectasis is seen at the lung bases. There is trace pleural fluid on the right. The heart is mildly enlarged. The bones demonstrate degenerative spondylosis changes. There is mild deformity of the lower lumbar spine and of the sacrum. Impression: Distended sigmoid colon, without evidence of downstream obstruction or volvulus. This was distal extent evident previously, but is more striking currently. Suspect functional and baseline for this patient Distal sigmoid and rectal wall thickening and fluid, considerably more striking than on the prior exam. This is concerning for colitis/proctitis, nonspecific as regards etiology Previously demonstrated left lower pole renal abscess and previously demonstrated right distal ureteral calculi are no longer evident. There are calyceal calcifications in the right renal sinus and bladder calculi again demonstrated Bilateral basilar parenchymal pulmonary consolidation, atelectasis, and trace right pleural fluid. Possibly on the basis of pulmonary edema, as there is mild cardiomegaly Other findings as noted, including degenerative spondylolysis, lumbosacral chronic deformity, bilateral renal cysts, nonspecific pancreatic head calcifications, gastrostomy, colonic diverticulosis This agrees with the preliminary interpretation provided overnight by [facility] teleradiology service. The CT scanner at [facility] is accredited by the [employer] and the scans are performed using protocols designed to limit radiation exposure to as low as reasonably achievable to attain images of sufficient resolution adequate for diagnostic evaluation.
== END 2018-04-05 00:35 ==
LOC: EDBD 22:11 → EMR 22:30
DX: K51.30 Ulcerative (chronic) rectosigmoiditis without complications (principal); E87.6 Hypokalemia; I10 Essential (primary) hypertension; E11.9 Type 2 diabetes mellitus without complications; Z93.1 Gastrostomy status; Z93.0 Tracheostomy status
CPT/HCPCS: 36415; 74176; 80053; 81003; 83690; 85025; 87081; 87086; 87181; 96374; 96375; 99284; J0696; J8499

== ENCOUNTER 2019-12-17 19:21 | Inpatient (IN) | payer MEDICAID ==
[~2019-12-17] VITALS: Ht 170.2 cm; Wt 68.9 kg
[~2019-12-17 19:21] MED LIST changes: +ACETAMINOP160 MG/54 GT; +CATAPRES0.1 MG GT; +FLEET ENEMA133 ML RECTAL; +HIBICLENS118 ML TP; +LEVAQUIN500 MG ORAL; +SUPPORT118 ML PO; +VITAMIN C500 M1 GT
[2019-12-17 19:25] VITALS: BP 107/51
--- NOTE | 2019-12-17 19:34 | Emergency Room Report ---
History of Present Illness General Chief Complaint: Dyspnea/Respdistress Source: EMS Present Illness HPI Patient presents from nursing facility with reports of shortness of breath Patient himself is significantly debilitated chronically Not able to provide any history There was report that the patient is not on chronic ventilator however upon arrival is required to be placed on ventilator Unknown regarding recent fever unknown regarding vomiting or diarrhea Allergies: Coded Allergies: No Known Allergies (Unverified , 11/23/17) Patient History Limited by: medical condition Past Medical History: see triage record Reviewed Nursing Documentation: PMH: Agreed; PSxH: Agreed Nursing Documentation-PMH Hx Hypertension: Yes - hypokalemia Hx Diabetes: Yes Hx Cancer: No Review of Systems All Other Systems: limited - Other than the ones mentioned in the history of present illness all others are reviewed however they do stay limited due to the patient's mental status Physical Exam Vital Signs Date Time Temp Pulse Resp B/P (MAP) Pulse Ox O2 Delivery O2 Flow Rate FiO2 12/17/19 19:16 99.9 94 24 107/51 (69) 98 Non-Rebreather 15.0 Sp02 EP Interpretation: reviewed, normal General Appearance: mild distress - Appears short of breath and uncomfortable Head: normocephalic, atraumatic Eyes: bilateral eye PERRL ENT: dry mucus membranes Neck: supple Respiratory: crackles - biaterally, some diminished breath sounds bilaterally Cardiovascular #1: regular rate, rhythm Gastrointestinal: non tender, soft - Feeding tube in place Musculoskeletal: other - Patient is chronic debilitated lower extremity is flexed over Neurologic: other - Minimal response to physical stimuli Skin: other - Multiple skin breakdowns Lymphatic: no adenopathy Procedures Critical Care Time Critical Care Time 35 minutes for multiple re-evaluations critical presentation concerning for respiratory failure not including any procedural time Medical Decision Making Diagnostic Impression: Primary Impression: Dyspnea Additional Impressions: UTI (urinary tract infection) Sepsis ER Course Patient is a fairly complex patient with multiple differential to consideration including but not limited to cardiac cardiopulmonary and vascular emergencies Patient placed on a ventilator upon arrival Blood work reveals mild anemia urine sample shows significant infectious process Patient saturating appropriately on the ventilator and at this time improved for further inpatient care Labs Test 12/17/19 19:30 12/17/19 19:50 12/17/19 20:00 White Blood Count 13.7 K/UL (4.8-10.8) Red Blood Count 2.68 M/UL (4.70-6.10) Hemoglobin 8.5 G/DL (14.2-18.0) Hematocrit 30.8 % (42.0-52.0) Mean Corpuscular Volume 115 FL (80-99) Mean Corpuscular Hemoglobin 31.9 PG (27.0-31.0) Mean Corpuscular Hemoglobin Concent 27.7 G/DL (32.0-36.0) Red Cell Distribution Width 18.0 % (11.6-14.8) Platelet Count 267 K/UL (150-450) Mean Platelet Volume 9.3 FL (6.5-10.1) Neutrophils (%) (Auto) % (45.0-75.0) Lymphocytes (%) (Auto) % (20.0-45.0) Monocytes (%) (Auto) % (1.0-10.0) Eosinophils (%) (Auto) % (0.0-3.0) Basophils (%) (Auto) % (0.0-2.0) Sodium Level 154 MMOL/L (136-145) Potassium Level 4.3 MMOL/L (3.5-5.1) Chloride Level 113 MMOL/L (98-107) Carbon Dioxide Level 33 MMOL/L (21-32) Anion Gap 8 mmol/L (5-15) Blood Urea Nitrogen 72 mg/dL (7-18) Creatinine 1.0 MG/DL (0.55-1.30) Estimat Glomerular Filtration Rate > 60 mL/min (>60) Glucose Level 135 MG/DL (74-106) Lactic Acid Level 2.60 mmol/L (0.4-2.0) Calcium Level 8.6 MG/DL (8.5-10.1) Total Bilirubin 0.3 MG/DL (0.2-1.0) Aspartate Amino Transf (AST/SGOT) 49 U/L (15-37) Alanine Aminotransferase (ALT/SGPT) 89 U/L (12-78) Alkaline Phosphatase 67 U/L (46-116) Total Creatine Kinase 56 U/L (26-308) Creatine Kinase MB < 0.5 NG/ML (0.0-3.6) Creatine Kinase MB Relative Index 0.8 Troponin I 0.008 ng/mL (0.000-0.056) Pro-B-Type Natriuretic Peptide 543 pg/mL (0-125) Total Protein 9.3 G/DL (6.4-8.2) Albumin 2.6 G/DL (3.4-5.0) Globulin 6.7 g/dL Albumin/Globulin Ratio 0.4 (1.0-2.7) Lipase 396 U/L (73-393) Arterial Blood pH 7.482 (7.350-7.450) Arterial Blood Partial Pressure CO2 41.4 mmHg (35.0-45.0) Arterial Blood Partial Pressure O2 56.4 mmHg (75.0-100.0) Arterial Blood HCO3 30.3 mmol/L (22.0-26.0) Arterial Blood Oxygen Saturation 88.4 % (95-100) Arterial Blood Base Excess 6.3 (-2-2) Jarvis Test Positive Urine Color Pale yellow Urine Appearance Slightly cloudy Urine pH 7 (4.5-8.0) Urine Specific Doss 1.005 (1.005-1.035) Urine Protein 1+ (NEGATIVE) Urine Glucose (UA) Negative (NEGATIVE) Urine Ketones Negative (NEGATIVE) Urine Blood 4+ (NEGATIVE) Urine Nitrite Negative (NEGATIVE) Urine Bilirubin Negative (NEGATIVE) Urine Urobilinogen Normal MG/DL (0.0-1.0) Urine Leukocyte Esterase 3+ (NEGATIVE) Rhythm Strip Diag. Results EP Interpretation: yes Rate: 99 Rhythm: NSR, no PVC's, no ectopy Chest X-Ray Diagnostic Results Chest X-Ray Diagnostic Results : Chest X-Ray Ordered: Yes # of Views/Limited/Complete: 1 View Indication: Shortness of Breath EP Interpretation: Yes Interpretation: no pneumothorax, other - Poor respiratory effort, question right lower lobe atelectasis infiltrate, heart size normal Impression: Other - As above Electronically Signed by: Hunter Douglass DO Last Vital Signs Date Time Temp Pulse Resp B/P (MAP) Pulse Ox O2 Delivery O2 Flow Rate FiO2 12/17/19 19:16 99.9 94 24 107/51 (69) 98 Non-Rebreather 15.0 Status: improved Disposition: ADMITTED INPATIENT Condition: Serious Hunter Douglass DO Dec 17, 2019 19:34
[2019-12-17 20:24] LABS: ANION GAP 8 mmol/L (5-15); BLOOD UREA NITROGEN 72 mg/dL (7-18); CALCIUM 8.6 MG/DL (8.5-10.1); CARBON DIOXIDE 33 MMOL/L (21-32); CHLORIDE 113 MMOL/L (98-107); POTASSIUM 4.3 MMOL/L (3.5-5.1); SODIUM 154 MMOL/L (136-145)
[2019-12-17 20:29] LABS: HEMATOCRIT 30.8 % (42.0-52.0); HEMOGLOBIN 8.5 G/DL (14.2-18.0); MEAN CORPUSCULAR VOLUME 115 FL (80-99); PLATELET COUNT 267 K/UL (150-450); RED BLOOD COUNT 2.68 M/UL (4.70-6.10); WHITE BLOOD COUNT 13.7 K/UL (4.8-10.8)
[2019-12-17 20:30] VITALS: BP 100/53
[2019-12-17 20:33] LABS: ALANINE AMINOTRANSFERASE 89 U/L (12-78); ALBUMIN 2.6 G/DL (3.4-5.0); ALBUMIN/GLOBULIN RATIO 0.4 (1.0-2.7); ALKALINE PHOSPHATASE 67 U/L (46-116); ASPARTATE AMINO TRANSFERASE 49 U/L (15-37); BILIRUBIN,TOTAL 0.3 MG/DL (0.2-1.0); CKMB < 0.5 NG/ML (0.0-3.6); CREATINE KINASE 56 U/L (26-308)
[2019-12-17 20:38] LABS: APPEARANCE,URINE SLIGHTLY CLOUDY; BILIRUBIN, URINE NEGATIVE (NEGATIVE); COLOR,URINE PALE YELLOW; GLUCOSE, URINE (UA) NEGATIVE (NEGATIVE); KETONES,URINE NEGATIVE (NEGATIVE); LEUKOCYTE ESTERASE ,URINE 3+ (NEGATIVE); NITRITE,URINE NEGATIVE (NEGATIVE); PH,URINE 7 (4.5-8.0); PROTEIN,URINE 1+ (NEGATIVE); UROBILINOGEN,URINE NORMAL MG/DL (0.0-1.0)
[2019-12-17] MEDS ORDERED: Piperacillin/Tazobactam 3.375 GM in NS 110 ML IVPB ONE (20:45)
[2019-12-17 21:30] VITALS: BP 93/50
[2019-12-17 22:05] VITALS: BP 85/43
[2019-12-17 23:00] VITALS: BP 95/50
[2019-12-18] VITALS (7 sets, daily range): BP systolic 90–109; BP diastolic 49–69
[2019-12-18] MEDS ORDERED: BACLOFEN10 MG ORAL (00:18)
[2019-12-18] MEDS ORDERED: EPOGEN10000 UNIT SUBQ (00:19)
[2019-12-18] MEDS ORDERED: FERROUS SU300 MG/52 GT (00:21)
[2019-12-18] MEDS ORDERED: FLORASTOR250 MG ORAL (00:23)
[2019-12-18] MEDS ORDERED: JUVEN PACKET1 EAC1 PO (00:24)
[2019-12-18] MEDS ORDERED: MILK OF MA400 MG/51 ORAL (00:24)
[2019-12-18] MEDS ORDERED: MULTIVITAMINS1 EAC8 ORAL (00:25)
[2019-12-18] MEDS ORDERED: MYLANTA GAS MIN42 MG PO (00:27)
[2019-12-18] MEDS ORDERED: OMEPRAZOLE20 M2 ORAL (00:30)
[2019-12-18] MEDS ORDERED: PRO-STAT LIQUID30 ML ORAL (00:31)
[2019-12-18] MEDS ORDERED: ACETAMINOPHEN120 MG RECTAL (00:32)
[2019-12-18] MEDS ORDERED: UTI-STAT L3875 MG/31 PO (00:33)
[2019-12-18] MEDS ORDERED: VITAMIN C250 MG ORAL (00:34)
[2019-12-18] MEDS ORDERED: ZOFRAN4 M3 ORAL (00:35)
[2019-12-18] MEDS ORDERED: BACLOFEN10 MG GT (02:05)
[2019-12-18] MEDS ORDERED: ZOFRAN4 M3 GT (02:05)
[2019-12-18] MEDS ORDERED: FLORASTOR250 MG GT (02:05)
[2019-12-18] MEDS ORDERED: JUVEN PACKET1 EAC1 GT (02:05)
[2019-12-18] MEDS ORDERED: MYLANTA MAXIMU355 ML GT (02:05)
[2019-12-18] MEDS ORDERED: UTI-STAT L3875 MG/31 GT (02:05)
[2019-12-18] MEDS ORDERED: FERROUS SU220 MG/53 GT (02:05)
[2019-12-18] MEDS ORDERED: PRO-STAT LIQUID30 ML GT (02:05)
[2019-12-18] MEDS ORDERED: MULTI-DELYN237 ML GT (02:05)
[2019-12-18] MEDS ORDERED: OMEPRAZOLE20 M2 GT (02:05)
[2019-12-18] MEDS ORDERED: Acetaminophen 650mg/20.3ml GT PRN (02:45)
[2019-12-18] MEDS ORDERED: Milk of Magnesia 30ml Ud GT PRN (02:45)
[2019-12-18] MEDS ORDERED: Vancomycin 750mg/D5W 275ml IVPB SCH ×2 (03:00)
[2019-12-18] MEDS: Albuterol ud Inhalation HHN SCH ×6 (03:13→23:25)
[2019-12-18 05:39] LABS: HEMATOCRIT 21.2 % (42.0-52.0); MEAN CORPUSCULAR VOLUME 106 FL (80-99); PLATELET COUNT 214 K/UL (150-450); RED BLOOD COUNT 1.99 M/UL (4.70-6.10); RED CELL DISTRIBUTION WIDTH 16.9 % (11.6-14.8); WHITE BLOOD COUNT 12.9 K/UL (4.8-10.8)
[2019-12-18 05:51] LABS: HEMOGLOBIN 6.5 G/DL (14.2-18.0)
[2019-12-18 05:58] LABS: ANION GAP 11 mmol/L (5-15); BLOOD UREA NITROGEN 60 mg/dL (7-18); CALCIUM 7.8 MG/DL (8.5-10.1); CARBON DIOXIDE 27 MMOL/L (21-32); CHLORIDE 118 MMOL/L (98-107); CREATININE 0.9 MG/DL (0.55-1.30); POTASSIUM 3.4 MMOL/L (3.5-5.1); SODIUM 156 MMOL/L (136-145)
[2019-12-18] MEDS ORDERED: Piperacillin/Tazobactam 3.375 GM in NS 110 ML IVPB SCH (06:00)
[2019-12-18] MEDS: Ferrous Sulfate 300 MG/5 ML UDC GT SCH ×3 (08:41→17:31)
[2019-12-18] MEDS: Ascorbic Acid 500mg tab GT SCH (08:41)
[2019-12-18] MEDS: Multivitamins W/Minerals 15 ML UDC GT SCH (08:41)
[2019-12-18] MEDS: D5W w/KCl 20mEq 1,000 ML IV SCH ×3 (09:22→23:34)
--- NOTE | 2019-12-18 12:19 | Consultation ---
History of Present Illness General Date patient seen: Dec 18, 2019 Chief Complaint: Dyspnea/Respdistress Present Illness HPI This is a 69-year-old male with multiple medical committees who is a retirement resident that presented to [facility] for shortness of breath and respiratory insufficiency. Patient admitted for further care and management. Noted abnormal labs, decubitus ulcers, malnutrition. Surgery called to evaluate and assist with care. Patient seen, patient evaluated, chart reviewed. Patient's is at bedside and states he has been at [facility] prior and is been given care instructions which are being followed as an outpatient. She identifies the creams that she uses and has samples of them at the bedside to assist with the continuation of the care plan. Allergies: Coded Allergies: No Known Allergies (Unverified , 11/23/17) Medication History Scheduled Amino Acids/Protein Hydrolys (Pro-Stat Liquid), 30 ML GT DAILY, (Reported) Amlodipine Besylate* (Amlodipine Besylate*), 10 MG GT DAILY, (Reported) Arginine/Glutamine/Calcium Hmb (Oyssi Packet), 1 EACH GT BID, (Reported) Ascorbic Acid* (Vitamin C*), 500 MG GT DAILY, (Reported) Baclofen* (Baclofen*), 10 MG GT THREE TIMES A DAY, (Reported) Cran/Vitc/Mannose/Inulin/Brom (Uti-Stat Liquid), 3,875 MG GT DAILY, (Reported) Epoetin Aleksandar (Epogen), 10,000 UNIT SUBQ 3XW, (Reported) Ferrous Sulfate (Ferrous Sulfate), 330 MG GT THREE TIMES A DAY, (Reported) Multivitamin Liquid* (Multi-Delyn*), 15 ML GT DAILY, (Reported) Omeprazole (Omeprazole), 20 MG GT Q12HR, (Reported) Saccharomyces Boulardii (Florastor*), 250 MG GT TID, (Reported) Scheduled PRN Acetaminophen* (Acetaminophen*), 640 MG GT Q6H PRN for Mild Pain/Temp > 100.5, ( Reported) Mag Hydrox/Aluminum Hyd/Simeth (Mylanta Maximum Strength Liq), 30 ML GT Q4HR PRN for Abdominal cramps, (Reported) Magnesium Hydroxide (Milk of Magnesia), 30 ML GT DAILY PRN for Constipation, ( Reported) Ondansetron* (Zofran*), 4 MG GT Q6H PRN for Nausea & Vomiting, (Reported) Patient History History Provided By: Family Member, Medical Record, PMD Healthcare decision maker Resuscitation status Full Code Advanced Directive on File No Past Medical/Surgical History Past Medical/Surgical History: (1) Feeding by G-tube (2) Pyelonephritis (3) Respiratory distress (4) Sepsis (5) UTI (urinary tract infection) (6) Dyspnea Review of Systems ROS Narrative Unable obtain given patient's current medical condition Physical Exam General Appearance: no apparent distress Lines, tubes and drains: peripheral HEENT: mucous membranes moist Neck: trach Respiratory/Chest: on vent Cardiovascular/Chest: normal rate Abdomen: soft, no organomegaly, no mass, other Genitourinary/Rectal: normal rectal exam Extremities: no calf tenderness Skin Exam: warm/dry Neurologic: unresponsiveness Last 24 Hour Vital Signs Date Time Temp Pulse Resp B/P (MAP) Pulse Ox O2 Delivery O2 Flow Rate FiO2 12/18/19 11:30 72 16 45 12/18/19 08:41 75 98/57 12/18/19 08:00 98.2 70 18 98/57 (71) 97 12/18/19 08:00 Mechanical Ventilator 12/18/19 08:00 45 12/18/19 07:55 71 12/18/19 07:40 70 16 98 Mechanical Ventilator 45 75 16 45 12/18/19 04:51 73 15 45 12/18/19 04:00 Mechanical Ventilator 12/18/19 04:00 97.8 68 14 100/56 (71) 100 12/18/19 03:41 63 12/18/19 03:13 69 19 100 Mechanical Ventilator 45 69 19 45 12/18/19 01:38 Mechanical Ventilator 12/18/19 01:09 99 18 45 12/18/19 00:35 96.0 60 19 109/50 (69) 100 12/18/19 00:30 99.6 75 14 113/56 99 Mechanical Ventilator 15.0 45 12/18/19 00:00 99.6 68 14 108/49 97 Mechanical Ventilator 15.0 45 12/17/19 23:00 99.6 95 20 95/50 99 Mechanical Ventilator 15.0 45 12/17/19 22:20 95 17 45 12/17/19 22:05 99.6 100 14 85/43 100 Mechanical Ventilator 40 12/17/19 21:30 99.6 104 22 93/50 98 Mechanical Ventilator 40 12/17/19 21:02 94 21 45 12/17/19 20:30 99.6 94 20 100/53 95 Mechanical Ventilator 40 12/17/19 20:02 110 18 40 12/17/19 19:25 94 24 Non-Rebreather 15.0 12/17/19 19:25 99.6 94 24 107/51 98 Non-Rebreather 15.0 12/17/19 19:16 99.9 94 24 107/51 (69) 98 Non-Rebreather 15.0 Intake and Output 12/17/19 12/18/19 19:00 07:00 Intake Total 825.000 ml Output Total 500 ml Balance 325.000 ml Intake Free Water 50 ml IV Total 715.000 ml Tube Feeding 60 ml Output Urine Total 500 ml # Bowel Movements 3 Laboratory Tests Test 12/17/19 19:30 12/17/19 19:50 12/17/19 20:00 12/17/19 22:00 White Blood Count 13.7 K/UL (4.8-10.8) H Red Blood Count 2.68 M/UL (4.70-6.10) L Hemoglobin 8.5 G/DL (14.2-18.0) L Hematocrit 30.8 % (42.0-52.0) L Mean Corpuscular Volume 115 FL (80-99) H Mean Corpuscular Hemoglobin 31.9 PG (27.0-31.0) H Mean Corpuscular Hemoglobin Concent 27.7 G/DL (32.0-36.0) L Red Cell Distribution Width 18.0 % (11.6-14.8) H Platelet Count 267 K/UL (150-450) Mean Platelet Volume 9.3 FL (6.5-10.1) Neutrophils (%) (Auto) % (45.0-75.0) Lymphocytes (%) (Auto) % (20.0-45.0) Monocytes (%) (Auto) % (1.0-10.0) Eosinophils (%) (Auto) % (0.0-3.0) Basophils (%) (Auto) % (0.0-2.0) Differential Total Cells Counted 100 Neutrophils % (Manual) 85 % (45-75) H Lymphocytes % (Manual) 10 % (20-45) L Monocytes % (Manual) 5 % (1-10) Eosinophils % (Manual) 0 % (0-3) Basophils % (Manual) 0 % (0-2) Band Neutrophils 0 % (0-8) Platelet Estimate Adequate Platelet Morphology Normal Hypochromasia 1+ Anisocytosis 1+ Sodium Level 154 MMOL/L (136-145) H Potassium Level 4.3 MMOL/L (3.5-5.1) Chloride Level 113 MMOL/L (98-107) H Carbon Dioxide Level 33 MMOL/L (21-32) H Anion Gap 8 mmol/L (5-15) Blood Urea Nitrogen 72 mg/dL (7-18) H Creatinine 1.0 MG/DL (0.55-1.30) Estimat Glomerular Filtration Rate > 60 mL/min (>60) Glucose Level 135 MG/DL (74-106) H Lactic Acid Level 2.60 mmol/L (0.4-2.0) H 2.30 mmol/L (0.66-2.22) H Calcium Level 8.6 MG/DL (8.5-10.1) Total Bilirubin 0.3 MG/DL (0.2-1.0) Aspartate Amino Transf (AST/SGOT) 49 U/L (15-37) H Alanine Aminotransferase (ALT/SGPT) 89 U/L (12-78) H Alkaline Phosphatase 67 U/L (46-116) Total Creatine Kinase 56 U/L (26-308) Creatine Kinase MB < 0.5 NG/ML (0.0-3.6) Creatine Kinase MB Relative Index 0.8 Troponin I 0.008 ng/mL (0.000-0.056) Pro-B-Type Natriuretic Peptide 543 pg/mL (0-125) H Total Protein 9.3 G/DL (6.4-8.2) H Albumin 2.6 G/DL (3.4-5.0) L Globulin 6.7 g/dL Albumin/Globulin Ratio 0.4 (1.0-2.7) L Lipase 396 U/L (73-393) H Arterial Blood pH 7.482 (7.350-7.450) Arterial Blood Partial Pressure CO2 41.4 mmHg (35.0-45.0) Arterial Blood Partial Pressure O2 56.4 mmHg (75.0-100.0) L Arterial Blood HCO3 30.3 mmol/L (22.0-26.0) H Arterial Blood Oxygen Saturation 88.4 % (95-100) *L Arterial Blood Base Excess 6.3 (-2-2) H Jarvis Test Positive Urine Color Pale yellow Urine Appearance Slightly cloudy Urine pH 7 (4.5-8.0) Urine Specific Buchanan 1.005 (1.005-1.035) Urine Protein 1+ (NEGATIVE) H Urine Glucose (UA) Negative (NEGATIVE) Urine Ketones Negative (NEGATIVE) Urine Blood 4+ (NEGATIVE) H Urine Nitrite Negative (NEGATIVE) Urine Bilirubin Negative (NEGATIVE) Urine Urobilinogen Normal MG/DL (0.0-1.0) Urine Leukocyte Esterase 3+ (NEGATIVE) H Urine RBC 15-20 /HPF (0 - 0) H Urine WBC 60-80 /HPF (0 - 0) H Urine Squamous Epithelial Cells Occasional /LPF Urine Bacteria Many /HPF (NONE) H Urine Yeast Moderate /HPF (NONE) H Test 12/18/19 03:10 12/18/19 04:00 12/18/19 08:10 White Blood Count 12.9 K/UL (4.8-10.8) H Red Blood Count 1.99 M/UL (4.70-6.10) L Hemoglobin 6.5 G/DL (14.2-18.0) *L Hematocrit 21.2 % (42.0-52.0) #L Mean Corpuscular Volume 106 FL (80-99) H Mean Corpuscular Hemoglobin 32.9 PG (27.0-31.0) H Mean Corpuscular Hemoglobin Concent 30.9 G/DL (32.0-36.0) L Red Cell Distribution Width 16.9 % (11.6-14.8) H Platelet Count 214 K/UL (150-450) Mean Platelet Volume 8.7 FL (6.5-10.1) Neutrophils (%) (Auto) % (45.0-75.0) Lymphocytes (%) (Auto) % (20.0-45.0) Monocytes (%) (Auto) % (1.0-10.0) Eosinophils (%) (Auto) % (0.0-3.0) Basophils (%) (Auto) % (0.0-2.0) Differential Total Cells Counted 100 Neutrophils % (Manual) 75 % (45-75) Lymphocytes % (Manual) 18 % (20-45) L Monocytes % (Manual) 5 % (1-10) Eosinophils % (Manual) 2 % (0-3) Basophils % (Manual) 0 % (0-2) Band Neutrophils 0 % (0-8) Platelet Estimate Adequate Platelet Morphology Normal Hypochromasia 1+ Anisocytosis 1+ Macrocytosis 1+ Sodium Level 156 MMOL/L (136-145) H Potassium Level 3.4 MMOL/L (3.5-5.1) L Chloride Level 118 MMOL/L (98-107) H Carbon Dioxide Level 27 MMOL/L (21-32) Anion Gap 11 mmol/L (5-15) Blood Urea Nitrogen 60 mg/dL (7-18) H Creatinine 0.9 MG/DL (0.55-1.30) Estimat Glomerular Filtration Rate > 60 mL/min (>60) Glucose Level 124 MG/DL (74-106) H Calcium Level 7.8 MG/DL (8.5-10.1) L Stool Occult Blood Negative (NEGATIVE) Lactic Acid Level 1.80 mmol/L (0.4-2.0) Microbiology Date/Time Source Procedure Growth Status 12/17/19 20:00 Nasal Nares - Final Complete 12/17/19 20:00 Nasal Nares - Final Complete 12/18/19 04:00 Stool Clostridium difficile Toxin Assay - Final Complete 12/17/19 20:00 Urine,Clean Catch Urine Culture - Preliminary NO GROWTH Resulted 12/17/19 19:30 Rectum Received Height (Feet): 5 Height (Inches): 7.00 Weight (Pounds): 121 Medications Current Medications Medications (Trade) Dose Ordered Sig/Sara Route PRN Reason Start Time Stop Time Status Last Admin Dose Admin Acetaminophen (Tylenol) 640 mg Q6H PRN GT Mild Pain/Temp > 100.5 12/18/19 02:45 01/17/20 02:44 Al Hydroxide/Mg Hydroxide (Mylanta) 30 ml Q4H PRN GT Abdominal cramps 12/18/19 02:45 01/17/20 02:44 Albuterol Sulfate (Proventil) 2.5 mg Q4HRT HHN 12/18/19 03:00 12/23/19 02:59 12/18/19 07:40 Amlodipine Besylate (Norvasc) 10 mg DAILY GT 12/18/19 09:00 01/17/20 08:59 Ascorbic Acid (Vitamin C) 500 mg DAILY GT 12/18/19 09:00 01/17/20 08:59 12/18/19 08:41 Baclofen (Lioresal) 10 mg THREE TIMES A DAY GT 12/18/19 09:00 01/17/20 08:59 12/18/19 08:41 Dextrose (Dextrose 50%) 25 ml Q30M PRN IV Hypoglycemia 12/18/19 01:30 01/17/20 01:29 Dextrose (Dextrose 50%) 50 ml Q30M PRN IV Hypoglycemia 12/18/19 01:30 01/17/20 01:29 Dextrose/ Electrolytes 1,000 ml @ 100 mls/hr Q10H IV 12/18/19 08:00 01/17/20 07:59 12/18/19 09:22 Epoetin Aleksandar (Epoetin Aleksandar-EPBX(NON ESRD)) 10,000 unit WED-WED-WED SUBQ 12/18/19 21:00 01/17/20 20:59 Ferrous Sulfate (Feosol) 300 mg TID GT 12/18/19 09:00 01/17/20 08:59 12/18/19 08:41 Lansoprazole (Prevacid) 30 mg DAILY GT 12/18/19 09:00 01/17/20 08:59 12/18/19 08:41 Magnesium Hydroxide (Mom) 30 ml DAILY PRN GT Constipation 12/18/19 02:45 01/17/20 02:44 Multivitamins (Multivitamins W/ Minerals 15ml Liquid) 15 ml DAILY GT 12/18/19 09:00 01/17/20 08:59 12/18/19 08:41 Ondansetron HCl (Zofran) 4 mg Q6H PRN GT Nausea & Vomiting 12/18/19 02:45 01/17/20 02:44 Piperacillin Sod/ Tazobactam Sod 3.375 gm/Sodium Chloride 110 ml @ 27.5 mls/hr Q8H IVPB 12/18/19 06:00 12/25/19 05:59 12/18/19 06:22 Saccharomyces Boulardii (Florastor) 250 mg TID GT 12/18/19 09:00 01/17/20 08:59 12/18/19 08:41 Vancomycin HCl (Vanco rx to dose) 1 ea DAILY PRN MISC Per rx protocol 12/18/19 01:30 01/17/20 01:29 Vancomycin HCl 750 mg/Dextrose 275 ml @ 183.333 mls/hr Q12H IVPB 12/18/19 03:00 12/23/19 02:59 12/18/19 03:01 Assessment/Plan Problem List: (1) Feeding by G-tube Assessment & Plan: DAILY ESTIMATED NEEDS: Needs based on Critical Care, DM, Wounds,48.8kg 30-40 kcals/kg 8855-1833 total kcals 1.25-2 g protein/kg 61-98 g total protein 25-35ml/kcal mL/kg 1275-5119 total fluid mLs NUTRITION DIAGNOSIS: 1) Swallowing difficulty r/t respiratory status as evidenced by pt trach/vent & PEG dependent. 2) Increased kcal, protein, micronutrient needs r/t wound healing as evidenced by pt w/ multiple advanced wounds per photo, eval is pending. CURRENT TF: Glucerna 1.5 @65 ml/hr ENTERAL NUTRITION RECOMMENDATIONS: Glucerna 1.5 @ 50ml/hr x 24hrs to provide 1200ml, 1800 kcal, 99g pro, 911ml free H2O - Advance by 10-15ml/hr every 4-6 hrs as tolerated to goal rate of 50ml/hr x 24hrs - HOB over 30 degrees/ flushes per MD ADDITIONAL RECOMMENDATIONS: 1) TF recs as above to not exceed est needs 2) Maintain calibrated bed scale wts 3) Wound healing: Yossi 1 pkt BID via PEG -> F/up w/ WC eval 4) Rec INCREASE H2O FLUSHES (elev Na and BUN) 5) Monitor BG and need for added insulin ICD Codes: Z93.1 - Gastrostomy status SNOMED: 201510923, 725929675 (2) Status post tracheostomy Assessment & Plan: Respiratory insufficiency status post tracheostomy on vent support Chest x-ray ordered Palm input as per pulmonology ICD Codes: Z93.0 - Tracheostomy status SNOMED: 92514964, 998747460 (3) Decubitus skin ulcer ICD Codes: L89.90 - Pressure ulcer of unspecified site, unspecified stage SNOMED: 856075060 (4) Sepsis Assessment & Plan: Patient with leukocytosis, anemia, lactic acidosis. Abnormal labs. Improving with resuscitation IV fluids continue tube feeds AM labs will follow with recs ICD Codes: A41.9 - Sepsis, unspecified organism SNOMED: 63584774 Josué Singh Dec 18, 2019 12:19
--- NOTE | 2019-12-18 14:14 | Diagnostic Imaging Report ---
Indication: Dyspnea Comparison: 11/25/2017 A single view chest radiograph was obtained. Findings: Right hemidiaphragm is elevated. There is basilar atelectasis bilaterally with low lung volumes. Tracheostomy is present. The hepatic flexure is noted just below the right hemidiaphragm. Heart remains normal in size. Bones are osteopenic. 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
--- NOTE | 2019-12-18 14:15 | History and Physical Report ---
DATE OF ADMISSION: 12/17/2019 REASON FOR ADMISSION: Profound anemia and hypotension. HISTORY OF PRESENT ILLNESS: This 69-year-old unfortunate male presents with shortness of breath, hypotension, anemia. The patient is chronically trach dependent. The patient is significantly contracted. The patient is seen, evaluated, and admitted for the above noted including possible fever and hypotension. The patient is unable to give much in the way of history. The patient is essentially obtunded at this time. PAST MEDICAL HISTORY: Includes contractures, chronic decubitii, hypertension, history of anemia, history of possible GI bleed, history of aspiration, history of G-tube, history of tracheostomy. MEDICATIONS: Reviewed. ALLERGIES: Reviewed. SOCIAL HISTORY: Resides at [facility]. REVIEW OF SYSTEMS: Unobtainable. FAMILY HISTORY: Unobtainable. PHYSICAL EXAMINATION: GENERAL: Ill-appearing male. VITAL SIGNS: Reviewed. Blood pressure reviewed, pulse 68, temperature 97.8, saturations are adequate on mechanical ventilation. HEENT: Otherwise negative. LUNGS: Coarse breath sounds. CARDIAC: S1, S2. Regular rate and rhythm. ABDOMEN: Soft. G-tube in place. EXTREMITIES: With contractures. LABORATORY DATA: Reviewed. Currently hemoglobin 6.5, white count 12.9, platelets of 214. Sodium noted, potassium 3.4, BUN 16, creatinine 0.9. Arterial blood gases 7.48/41/56. IMPRESSION: Possible sepsis, anemia, possible GI bleed, hypernatremia, acute renal failure, lactic acidemia. RECOMMENDATIONS: Supportive care. Transfusion needed for life saving measures - no family available. Wound care and management evaluation. Hypotonic fluids. Consider Renal evaluation. Monitor clinically. Provide empiric antibiotics for now and follow up cultures in the a.m. Follow up laboratories. Assess to take the patient off the ventilator once able and we will follow clinically for further changes and interventions. We will assist with disposition once improved. Alexis Melo M.D. DR: JOHN JOB#: [id number] CC: SLOANE
[2019-12-18] MEDS ORDERED: Vancomycin 750 MG in NS 275 ML IVPB SCH (15:00)
[2019-12-18] MEDS ORDERED: NS 275ml ONE (15:03)
[2019-12-18] MEDS ORDERED: 1/2 NS 1000ml IV ONE (15:03)
[2019-12-18] MEDS ORDERED: Tubing IV Secondary IV ONE (15:03)
[2019-12-18] MEDS: NovoLOG Insulin Flexpen SUBQ SCH ×2 (16:30→20:15)
[2019-12-18] MEDS: Piperacillin/Tazobactam 3.375 GM in NS 110 ML IVPB SCH (20:15)
[2019-12-18] MEDS: Epoetin Alfa-EPBX (NON ESRD)10,000 unit/ml vial SUBQ SCH (20:15)
[2019-12-18] MEDS: Vancomycin 750 MG in NS 275 ML IVPB SCH (23:34)
[2019-12-19] VITALS: BP 110/57
[2019-12-19] MEDS: Albuterol ud Inhalation HHN SCH ×6 (03:43→22:40)
[2019-12-19] MEDS: Piperacillin/Tazobactam 3.375 GM in NS 110 ML IVPB SCH ×3 (03:51→20:01)
[2019-12-19 04:00] VITALS: BP 132/72
[2019-12-19] MEDS: NovoLOG Insulin Flexpen SUBQ SCH ×4 (06:30→23:20)
[2019-12-19 06:40] LABS: EOSINOPHILS % (AUTO) 8.2 % (0.0-3.0); HEMATOCRIT 28.4 % (42.0-52.0); HEMOGLOBIN 9.5 G/DL (14.2-18.0); LYMPHOCYTES % (AUTO) 9.9 % (20.0-45.0); MEAN CORPUSCULAR VOLUME 98 FL (80-99); PLATELET COUNT 202 K/UL (150-450); RED BLOOD COUNT 2.91 M/UL (4.70-6.10); WHITE BLOOD COUNT 8.3 K/UL (4.8-10.8)
[2019-12-19 07:31] LABS: ALANINE AMINOTRANSFERASE 64 U/L (12-78); ALBUMIN/GLOBULIN RATIO 0.4 (1.0-2.7); ALKALINE PHOSPHATASE 60 U/L (46-116); ANION GAP 8 mmol/L (5-15); ASPARTATE AMINO TRANSFERASE 31 U/L (15-37); BILIRUBIN,TOTAL 0.4 MG/DL (0.2-1.0); BLOOD UREA NITROGEN 31 mg/dL (7-18); CALCIUM 8.2 MG/DL (8.5-10.1); CARBON DIOXIDE 28 MMOL/L (21-32); CHLORIDE 118 MMOL/L (98-107); CREATININE 0.7 MG/DL (0.55-1.30); POTASSIUM 3.2 MMOL/L (3.5-5.1); SODIUM 153 MMOL/L (136-145)
[2019-12-19 08:00] VITALS: BP 94/58
--- NOTE | 2019-12-19 08:34 | General Progress Note ---
Assessment/Plan Assessment/Plan: sepsis anemia bacteremia s/p transfusion severe protein calorie malnutrition trach GT contractures PLAN care noted anemia improved on antibiotics respiratory care wound management impression, plan, and exam edited and reviewed in detail care discussed with RN Subjective ROS Limited/Unobtainable: Yes Allergies: Coded Allergies: No Known Allergies (Unverified , 11/23/17) Subjective doing poorly bcx+ Objective Last 24 Hour Vital Signs Date Time Temp Pulse Resp B/P (MAP) Pulse Ox O2 Delivery O2 Flow Rate FiO2 12/19/19 06:44 75 22 Mechanical Ventilator 45 45 12/19/19 05:26 72 22 45 12/19/19 04:00 45 12/19/19 04:00 98.1 75 21 132/72 (92) 99 12/19/19 04:00 Mechanical Ventilator 12/19/19 04:00 65 12/19/19 03:43 67 22 100 Mechanical Ventilator 45 75 18 45 12/19/19 01:27 71 14 45 12/19/19 00:00 68 12/19/19 00:00 97.7 75 21 110/57 (74) 99 12/19/19 00:00 45 12/19/19 00:00 Mechanical Ventilator 12/18/19 23:26 72 22 100 Mechanical Ventilator 45 75 18 45 12/18/19 21:36 69 18 45 12/18/19 20:00 45 12/18/19 20:00 97.7 70 14 108/56 (73) 99 12/18/19 20:00 69 12/18/19 20:00 Mechanical Ventilator 12/18/19 19:48 69 16 100 Mechanical Ventilator 45 72 18 45 12/18/19 16:45 72 16 45 12/18/19 16:00 45 12/18/19 16:00 97.8 67 18 102/69 (80) 96 12/18/19 16:00 Mechanical Ventilator 12/18/19 15:22 70 12/18/19 15:16 69 19 100 Mechanical Ventilator 45 69 19 45 12/18/19 12:54 73 18 45 12/18/19 12:00 97.2 70 16 90/53 (65) 97 12/18/19 12:00 45 12/18/19 12:00 Mechanical Ventilator 12/18/19 11:39 71 12/18/19 11:30 72 16 45 12/18/19 08:41 75 98/57 Intake and Output 12/18/19 12/19/19 19:00 07:00 Intake Total 1350.0 ml 2619.166 ml Output Total 800 ml 900 ml Balance 550.0 ml 1719.166 ml Intake Free Water 100 ml 200 ml IV Total 510.0 ml 1454.166 ml Tube Feeding 440 ml 715 ml Blood Product 250 ml 250 ml Other 50 ml Output Urine Total 800 ml 900 ml # Bowel Movements 4 6 Laboratory Tests 12/19/19 05:54: White Blood Count 8.3, Red Blood Count 2.91L, Hemoglobin 9.5#L, Hematocrit 28.4# L, Mean Corpuscular Volume 98, Mean Corpuscular Hemoglobin 32.8H, Mean Corpuscular Hemoglobin Concent 33.5, Red Cell Distribution Width 19.0H, Platelet Count 202, Mean Platelet Volume 8.7, Neutrophils (%) (Auto) 75.0, Lymphocytes (%) (Auto) 9.9L, Monocytes (%) (Auto) 6.0, Eosinophils (%) (Auto) 8.2H, Basophils (%) (Auto) 1.0, Sodium Level 153H, Potassium Level 3.2L, Chloride Level 118H, Carbon Dioxide Level 28, Anion Gap 8, Blood Urea Nitrogen 31H, Creatinine 0.7, Estimat Glomerular Filtration Rate > 60, Glucose Level 151H , Calcium Level 8.2L, Total Bilirubin 0.4, Aspartate Amino Transf (AST/SGOT) 31 , Alanine Aminotransferase (ALT/SGPT) 64, Alkaline Phosphatase 60, Total Protein 7.4, Albumin 2.0L, Globulin 5.4, Albumin/Globulin Ratio 0.4L Height (Feet): 5 Height (Inches): 7.00 Weight (Pounds): 121 Objective WDWN NAD clear breath sounds bilaterally without rhonchi or wheeze [id number] without MRG NABS nontender no HSM no CCE nonfocal contractures trach and gt Alexis Melo MD Dec 19, 2019 08:34
[2019-12-19] MEDS: Multivitamins W/Minerals 15 ML UDC GT SCH (09:25)
[2019-12-19] MEDS: Ferrous Sulfate 300 MG/5 ML UDC GT SCH ×3 (09:25→17:18)
[2019-12-19] MEDS: Ascorbic Acid 500mg tab GT SCH (09:29)
[2019-12-19] MEDS: D5W w/KCl 20mEq 1,000 ML IV SCH ×2 (11:26→21:06)
[2019-12-19] MEDS: Vancomycin 750 MG in NS 275 ML IVPB SCH ×2 (11:27→23:02)
[2019-12-19 12:00] VITALS: BP 92/54
--- NOTE | 2019-12-19 13:26 | Surgery Progress Note ---
Surgery Progress Note Subjective Additional Comments no acute events comfortable appearing on support tolerating tf Objective Last 24 Hour Vital Signs Date Time Temp Pulse Resp B/P (MAP) Pulse Ox O2 Delivery O2 Flow Rate FiO2 12/19/19 12:43 70 22 98 Mechanical Ventilator 45 82 22 45 12/19/19 12:00 45 12/19/19 12:00 Mechanical Ventilator 12/19/19 12:00 98.8 98 14 92/54 (67) 100 12/19/19 10:33 79 21 98 Mechanical Ventilator 45 82 22 45 12/19/19 09:29 72 100/58 12/19/19 09:14 69 21 45 12/19/19 08:00 97.5 72 16 94/58 (70) 100 12/19/19 08:00 Mechanical Ventilator 12/19/19 08:00 45 12/19/19 08:00 75 12/19/19 06:44 75 22 99 Mechanical Ventilator 45 78 21 45 12/19/19 05:26 72 22 45 12/19/19 04:00 45 12/19/19 04:00 98.1 75 21 132/72 (92) 99 12/19/19 04:00 Mechanical Ventilator 12/19/19 04:00 65 12/19/19 03:43 67 22 100 Mechanical Ventilator 45 75 18 45 12/19/19 01:27 71 14 45 12/19/19 00:00 68 12/19/19 00:00 97.7 75 21 110/57 (74) 99 12/19/19 00:00 45 12/19/19 00:00 Mechanical Ventilator 12/18/19 23:26 72 22 100 Mechanical Ventilator 45 75 18 45 12/18/19 21:36 69 18 45 12/18/19 20:00 45 12/18/19 20:00 97.7 70 14 108/56 (73) 99 12/18/19 20:00 69 12/18/19 20:00 Mechanical Ventilator 12/18/19 19:48 69 16 100 Mechanical Ventilator 45 72 18 45 12/18/19 16:45 72 16 45 12/18/19 16:00 45 12/18/19 16:00 97.8 67 18 102/69 (80) 96 12/18/19 16:00 Mechanical Ventilator 12/18/19 15:22 70 12/18/19 15:16 69 19 100 Mechanical Ventilator 45 69 19 45 I&O Intake and Output 12/18/19 12/19/19 19:00 07:00 Intake Total 1350.0 ml 2619.166 ml Output Total 800 ml 900 ml Balance 550.0 ml 1719.166 ml Intake Free Water 100 ml 200 ml IV Total 510.0 ml 1454.166 ml Tube Feeding 440 ml 715 ml Blood Product 250 ml 250 ml Other 50 ml Output Urine Total 800 ml 900 ml # Bowel Movements 4 6 Dressing: saturated Wound: other Drains: other Cardiovascular: RSR Respiratory: decreased breath sounds Abdomen: soft, present bowel sounds, non-distended Extremities: no cyanosis, other Laboratory Tests Test 12/19/19 05:54 White Blood Count 8.3 K/UL (4.8-10.8) Red Blood Count 2.91 M/UL (4.70-6.10) L Hemoglobin 9.5 G/DL (14.2-18.0) #L Hematocrit 28.4 % (42.0-52.0) #L Mean Corpuscular Volume 98 FL (80-99) Mean Corpuscular Hemoglobin 32.8 PG (27.0-31.0) H Mean Corpuscular Hemoglobin Concent 33.5 G/DL (32.0-36.0) Red Cell Distribution Width 19.0 % (11.6-14.8) H Platelet Count 202 K/UL (150-450) Mean Platelet Volume 8.7 FL (6.5-10.1) Neutrophils (%) (Auto) 75.0 % (45.0-75.0) Lymphocytes (%) (Auto) 9.9 % (20.0-45.0) L Monocytes (%) (Auto) 6.0 % (1.0-10.0) Eosinophils (%) (Auto) 8.2 % (0.0-3.0) H Basophils (%) (Auto) 1.0 % (0.0-2.0) Sodium Level 153 MMOL/L (136-145) H Potassium Level 3.2 MMOL/L (3.5-5.1) L Chloride Level 118 MMOL/L (98-107) H Carbon Dioxide Level 28 MMOL/L (21-32) Anion Gap 8 mmol/L (5-15) Blood Urea Nitrogen 31 mg/dL (7-18) H Creatinine 0.7 MG/DL (0.55-1.30) Estimat Glomerular Filtration Rate > 60 mL/min (>60) Glucose Level 151 MG/DL (74-106) H Calcium Level 8.2 MG/DL (8.5-10.1) L Total Bilirubin 0.4 MG/DL (0.2-1.0) Aspartate Amino Transf (AST/SGOT) 31 U/L (15-37) Alanine Aminotransferase (ALT/SGPT) 64 U/L (12-78) Alkaline Phosphatase 60 U/L (46-116) Total Protein 7.4 G/DL (6.4-8.2) Albumin 2.0 G/DL (3.4-5.0) L Globulin 5.4 g/dL Albumin/Globulin Ratio 0.4 (1.0-2.7) L Plan Problems: (1) Feeding by G-tube Assessment & Plan: DAILY ESTIMATED NEEDS: Needs based on Critical Care, DM, Wounds,48.8kg 30-40 kcals/kg 7689-2389 total kcals 1.25-2 g protein/kg 61-98 g total protein 25-35ml/kcal mL/kg 3578-2438 total fluid mLs NUTRITION DIAGNOSIS: 1) Swallowing difficulty r/t respiratory status as evidenced by pt trach/vent & PEG dependent. 2) Increased kcal, protein, micronutrient needs r/t wound healing as evidenced by pt w/ multiple advanced wounds per photo, eval is pending. CURRENT TF: Glucerna 1.5 @65 ml/hr ENTERAL NUTRITION RECOMMENDATIONS: Glucerna 1.5 @ 50ml/hr x 24hrs to provide 1200ml, 1800 kcal, 99g pro, 911ml free H2O - Advance by 10-15ml/hr every 4-6 hrs as tolerated to goal rate of 50ml/hr x 24hrs - HOB over 30 degrees/ flushes per MD ADDITIONAL RECOMMENDATIONS: 1) TF recs as above to not exceed est needs 2) Maintain calibrated bed scale wts 3) Wound healing: Yossi 1 pkt BID via PEG -> F/up w/ WC eval 4) Rec INCREASE H2O FLUSHES (elev Na and BUN) 5) Monitor BG and need for added insulin (2) Status post tracheostomy Assessment & Plan: Respiratory insufficiency status post tracheostomy on vent support Chest x-ray ordered Palm input as per pulmonology (3) Decubitus skin ulcer Assessment & Plan: Pt presented on admission grossly unkempt, with contractures and multiple pressure injuries. Unstageable pressure injury L elbow . Base of wound is 90% soft necrosis with surrounding marginal slough. Erythematous borders . Non-blanchable erythema without induration or elevation in skin temp periwound. No odor noted.(L)3cm x ( W)3.8cm. DTPI's noted lateral R elbow(L)0.9cm x (W)1.3cm. Base of wound is indurated, purple with maroon borders.DTPI R elbow (L)1.5cm x (W)1.6cm.Base of wound is maroon with marginal erythema. Unstageable Sacral pressure injury that is malodorous . Base of wound 90% soft necrosis with surrounding marginal slough bordered by moist erythematous margins (L)8cm x (W)7cm. Periwound skin is dark and indurated. Unstageable Pressure injury L buttocks that is malodorous. Base of wound has 90 % soft necrosis,surrounding moist pink granulation. Periwound is dark without erythema or induration.(L)7.8cm x (W)8cm. DTPI noted to L trochanter. Base of wound is maroon and fluctuant with small area of hyperpigmentation in center. Periwound without no evidence of further skin breakdown.(L)(L)5.5cm x (W)5cm. Partial thickness pressure injury medial L knee. Base of wound is moist and pink. Edges adherent to base to base of wound .Periwound is clean and dry. Smaller abrasion noted to medial L thigh. Partially opened DTPI R heel. Base of wound is fluctuant purple with opening that is beefy red with small amt slough. No odor noted. Small amt sanguineous exudate noted.(L)2.4cm x (W)2cm. Stable dry eschar Plantar R foot .(L)2.5cm x (W)2cm. DTPI L heel. Base of wound is maroon and fluctuant (L)3.5cm x (W)3.1cm. Stable dry eschar medial R malleolus(L)0.5cm x (W)1cm. Tx.Plan: Cleanse sacral and L buttocks wounds with Dakin's nereyda. 0.125%. Apply Dakin's moistened Gazue over each wound. Apply Moisture Barrier paste periwound. Cover each wound with Optifoam drsg Daily and prn. Cleanse wound R and L elbows with Dakin's nereyda 0.125%. Apply Dakin's moist gauze to wound. Cover with Optifoam drsg. Change daily and prn. Apply Betadine to wounds L heel ,L malleolus .Cover with Optifoam drsg. Change every 3 days and prn. Apply Betadine to Plantar R foot , R heel. Cover with Optifoam drsg. change every 3 days and prn. Apply Cavilon Skin Barrier to L trochanter. Cover with Optifoam drsg. Change every 7 days and prn. Apply Betadine to wounds L knee and L thigh. Cover each wound with Optifoam drsg. Change every 3 days and prn. APM/EAMON Mattress. Reposition at least every 2hours or as tolerated. Off-load heels with Pillow. Position with pillow between knees . (4) Sepsis Assessment & Plan: Patient with leukocytosis, anemia, lactic acidosis. Abnormal labs. Improving with resuscitation IV fluids continue tube feeds AM labs will follow with Josué Gomez Dec 19, 2019 13:26
[2019-12-19 16:00] VITALS: BP 108/64
[2019-12-19 20:00] VITALS: BP 111/67
[2019-12-20] VITALS: BP 112/65
[2019-12-20] MEDS: Albuterol ud Inhalation HHN SCH ×6 (02:44→23:28)
[2019-12-20 04:00] VITALS: BP 102/65
[2019-12-20] MEDS: Piperacillin/Tazobactam 3.375 GM in NS 110 ML IVPB SCH ×4 (04:19→19:41)
[2019-12-20] MEDS: NovoLOG Insulin Flexpen SUBQ SCH ×4 (05:25→23:14)
[2019-12-20 05:29] LABS: ANION GAP 7 mmol/L (5-15); BLOOD UREA NITROGEN 22 mg/dL (7-18); CARBON DIOXIDE 26 MMOL/L (21-32); CHLORIDE 112 MMOL/L (98-107); CREATININE 0.6 MG/DL (0.55-1.30); SODIUM 145 MMOL/L (136-145)
[2019-12-20 05:35] LABS: BASOPHILS % (AUTO) 0.5 % (0.0-2.0); EOSINOPHILS % (AUTO) 8.1 % (0.0-3.0); HEMATOCRIT 26.8 % (42.0-52.0); LYMPHOCYTES % (AUTO) 12.8 % (20.0-45.0); MEAN CORPUSCULAR VOLUME 97 FL (80-99); MONOCYTES % (AUTO) 6.4 % (1.0-10.0); NEUTROPHILS % (AUTO) 72.1 % (45.0-75.0); PLATELET COUNT 222 K/UL (150-450); RED BLOOD COUNT 2.76 M/UL (4.70-6.10); RED CELL DISTRIBUTION WIDTH 17.7 % (11.6-14.8); WHITE BLOOD COUNT 8.5 K/UL (4.8-10.8)
[2019-12-20] MEDS: D5W w/KCl 20mEq 1,000 ML IV SCH ×2 (06:16→17:33)
[2019-12-20 08:00] VITALS: BP 104/69
[2019-12-20] MEDS: Multivitamins W/Minerals 15 ML UDC GT SCH (09:29)
[2019-12-20] MEDS: Ascorbic Acid 500mg tab GT SCH (09:29)
[2019-12-20] MEDS: Ferrous Sulfate 300 MG/5 ML UDC GT SCH ×3 (09:29→17:33)
[2019-12-20] MEDS: Dakin's 0.125% Soln (Quarter Strength) 16oz TOPIC SCH (09:40)
[2019-12-20] MEDS ORDERED: NS 275ml ONE (10:14)
[2019-12-20] MEDS ORDERED: Tubing Blood Filter IV ONE (10:14)
[2019-12-20] MEDS: Vancomycin 750 MG in NS 275 ML IVPB SCH ×2 (11:17→23:11)
[2019-12-20 12:00] VITALS: BP 103/60
--- NOTE | 2019-12-20 15:09 | Surgery Progress Note ---
Surgery Progress Note Subjective Additional Comments wbc resolved h/h stable comfortable tube feeds tolerated Objective Last 24 Hour Vital Signs Date Time Temp Pulse Resp B/P (MAP) Pulse Ox O2 Delivery O2 Flow Rate FiO2 12/20/19 12:00 98.4 66 20 103/60 (74) 100 12/20/19 12:00 45 12/20/19 12:00 Mechanical Ventilator 12/20/19 11:36 69 12/20/19 10:48 68 26 100 Mechanical Ventilator 45 68 18 45 12/20/19 09:13 67 24 100 Mechanical Ventilator 45 68 18 45 12/20/19 09:00 72 104/69 12/20/19 08:00 45 12/20/19 08:00 Mechanical Ventilator 12/20/19 08:00 98.6 71 24 104/69 (81) 100 12/20/19 07:47 66 12/20/19 07:26 69 23 100 Mechanical Ventilator 45 67 18 45 12/20/19 05:01 66 17 45 12/20/19 04:00 45 12/20/19 04:00 98.6 74 24 102/65 (77) 100 12/20/19 04:00 Mechanical Ventilator 12/20/19 03:26 69 12/20/19 02:45 67 22 100 Mechanical Ventilator 45 65 45 12/20/19 00:31 71 24 45 12/20/19 00:00 Mechanical Ventilator 12/20/19 00:00 45 12/20/19 00:00 77 12/20/19 00:00 99.0 77 26 112/65 (81) 100 12/19/19 22:41 76 27 100 Mechanical Ventilator 45 71 14 45 12/19/19 21:01 79 18 45 12/19/19 20:00 98.8 71 23 111/67 (82) 100 12/19/19 20:00 Mechanical Ventilator 12/19/19 20:00 45 12/19/19 19:39 76 12/19/19 18:39 71 20 100 Mechanical Ventilator 45 73 14 45 12/19/19 17:06 75 24 45 12/19/19 16:00 98.8 76 14 108/64 (79) 99 12/19/19 16:00 45 12/19/19 16:00 Mechanical Ventilator 12/19/19 15:27 72 I&O Intake and Output 12/19/19 12/20/19 19:00 07:00 Intake Total 2641.66 ml 2570.0 ml Output Total 675 ml 650 ml Balance 1966.66 ml 1920.0 ml Intake Free Water 100 ml 140 ml IV Total 1541.66 ml 1585.0 ml Tube Feeding 780 ml 845 ml Other 220 ml Output Urine Total 500 ml 550 ml Stool Total 175 ml 100 ml # Bowel Movements 3 3 Dressing: other Wound: other Drains: other Cardiovascular: RSR Respiratory: decreased breath sounds Abdomen: soft, present bowel sounds Extremities: no cyanosis Laboratory Tests Test 12/20/19 03:20 12/20/19 10:15 White Blood Count 8.5 K/UL (4.8-10.8) Red Blood Count 2.76 M/UL (4.70-6.10) L Hemoglobin 9.0 G/DL (14.2-18.0) L Hematocrit 26.8 % (42.0-52.0) L Mean Corpuscular Volume 97 FL (80-99) Mean Corpuscular Hemoglobin 32.5 PG (27.0-31.0) H Mean Corpuscular Hemoglobin Concent 33.5 G/DL (32.0-36.0) Red Cell Distribution Width 17.7 % (11.6-14.8) H Platelet Count 222 K/UL (150-450) Mean Platelet Volume 9.0 FL (6.5-10.1) Neutrophils (%) (Auto) 72.1 % (45.0-75.0) Lymphocytes (%) (Auto) 12.8 % (20.0-45.0) L Monocytes (%) (Auto) 6.4 % (1.0-10.0) Eosinophils (%) (Auto) 8.1 % (0.0-3.0) H Basophils (%) (Auto) 0.5 % (0.0-2.0) Sodium Level 145 MMOL/L (136-145) Potassium Level 4.0 MMOL/L (3.5-5.1) Chloride Level 112 MMOL/L (98-107) H Carbon Dioxide Level 26 MMOL/L (21-32) Anion Gap 7 mmol/L (5-15) Blood Urea Nitrogen 22 mg/dL (7-18) H Creatinine 0.6 MG/DL (0.55-1.30) Estimat Glomerular Filtration Rate > 60 mL/min (>60) Glucose Level 125 MG/DL (74-106) H Calcium Level 8.0 MG/DL (8.5-10.1) L Vancomycin Level Trough 14.7 ug/mL (5.0-12.0) H Plan Problems: (1) Feeding by G-tube Assessment & Plan: DAILY ESTIMATED NEEDS: Needs based on Critical Care, DM, Wounds,48.8kg 30-40 kcals/kg 0975-7792 total kcals 1.25-2 g protein/kg 61-98 g total protein 25-35ml/kcal mL/kg 3136-5043 total fluid mLs NUTRITION DIAGNOSIS: 1) Swallowing difficulty r/t respiratory status as evidenced by pt trach/vent & PEG dependent. 2) Increased kcal, protein, micronutrient needs r/t wound healing as evidenced by pt w/ multiple advanced wounds per photo, eval is pending. CURRENT TF: Glucerna 1.5 @65 ml/hr ENTERAL NUTRITION RECOMMENDATIONS: Glucerna 1.5 @ 50ml/hr x 24hrs to provide 1200ml, 1800 kcal, 99g pro, 911ml free H2O - Advance by 10-15ml/hr every 4-6 hrs as tolerated to goal rate of 50ml/hr x 24hrs - HOB over 30 degrees/ flushes per MD ADDITIONAL RECOMMENDATIONS: 1) TF recs as above to not exceed est needs 2) Maintain calibrated bed scale wts 3) Wound healing: Yossi 1 pkt BID via PEG -> F/up w/ WC eval 4) Rec INCREASE H2O FLUSHES (elev Na and BUN) 5) Monitor BG and need for added insulin (2) Status post tracheostomy Assessment & Plan: Respiratory insufficiency status post tracheostomy on vent support Chest x-ray ordered Palm input as per pulmonology (3) Decubitus skin ulcer Assessment & Plan: Pt presented on admission grossly unkempt, with contractures and multiple pressure injuries. Unstageable pressure injury L elbow . Base of wound is 90% soft necrosis with surrounding marginal slough. Erythematous borders . Non-blanchable erythema without induration or elevation in skin temp periwound. No odor noted.(L)3cm x ( W)3.8cm. DTPI's noted lateral R elbow(L)0.9cm x (W)1.3cm. Base of wound is indurated, purple with maroon borders.DTPI R elbow (L)1.5cm x (W)1.6cm.Base of wound is maroon with marginal erythema. Unstageable Sacral pressure injury that is malodorous . Base of wound 90% soft necrosis with surrounding marginal slough bordered by moist erythematous margins (L)8cm x (W)7cm. Periwound skin is dark and indurated. Unstageable Pressure injury L buttocks that is malodorous. Base of wound has 90 % soft necrosis,surrounding moist pink granulation. Periwound is dark without erythema or induration.(L)7.8cm x (W)8cm. DTPI noted to L trochanter. Base of wound is maroon and fluctuant with small area of hyperpigmentation in center. Periwound without no evidence of further skin breakdown.(L)(L)5.5cm x (W)5cm. Partial thickness pressure injury medial L knee. Base of wound is moist and pink. Edges adherent to base to base of wound .Periwound is clean and dry. Smaller abrasion noted to medial L thigh. Partially opened DTPI R heel. Base of wound is fluctuant purple with opening that is beefy red with small amt slough. No odor noted. Small amt sanguineous exudate noted.(L)2.4cm x (W)2cm. Stable dry eschar Plantar R foot .(L)2.5cm x (W)2cm. DTPI L heel. Base of wound is maroon and fluctuant (L)3.5cm x (W)3.1cm. Stable dry eschar medial R malleolus(L)0.5cm x (W)1cm. Tx.Plan: Cleanse sacral and L buttocks wounds with Dakin's nereyda. 0.125%. Apply Dakin's moistened Gazue over each wound. Apply Moisture Barrier paste periwound. Cover each wound with Optifoam drsg Daily and prn. Cleanse wound R and L elbows with Dakin's nereyda 0.125%. Apply Dakin's moist gauze to wound. Cover with Optifoam drsg. Change daily and prn. Apply Betadine to wounds L heel ,L malleolus .Cover with Optifoam drsg. Change every 3 days and prn. Apply Betadine to Plantar R foot , R heel. Cover with Optifoam drsg. change every 3 days and prn. Apply Cavilon Skin Barrier to L trochanter. Cover with Optifoam drsg. Change every 7 days and prn. Apply Betadine to wounds L knee and L thigh. Cover each wound with Optifoam drsg. Change every 3 days and prn. APM/EAMON Mattress. Reposition at least every 2hours or as tolerated. Off-load heels with Pillow. Position with pillow between knees . (4) Sepsis Assessment & Plan: Patient with leukocytosis, anemia, lactic acidosis. Abnormal labs. Improving with resuscitation improved IV fluids continue tube feeds AM labs will follow with Josué Gomez Dec 20, 2019 15:09
[2019-12-20 16:00] VITALS: BP 106/66
--- NOTE | 2019-12-20 18:27 | Pulmonology Progress Note ---
Assessment/Plan Assessment/Plan Pulmonary Progress Note Assessment/Plan: sepsis anemia improved bacteremia s/p transfusion severe protein calorie malnutrition trach GT contractures UTI PLAN care noted Hb stable on IV antibiotics respiratory care wound management impression, plan, and exam edited and reviewed in detail care discussed with RN Subjective ROS Limited/Unobtainable: Yes Allergies: Coded Allergies: No Known Allergies (Unverified , 11/23/17) Subjective doing poorly bcx+ Objective Vital Signs Noted Lab TestsNoted 12/19/19 05:54: White Blood Count 8.3, Red Blood Count 2.91L, Hemoglobin 9.5#L, Hematocrit 28.4# L, Mean Corpuscular Volume 98, Mean Corpuscular Hemoglobin 32.8H, Mean Corpuscular Hemoglobin Concent 33.5, Red Cell Distribution Width 19.0H, Platelet Count 202, Mean Platelet Volume 8.7, Neutrophils (%) (Auto) 75.0, Lymphocytes (%) (Auto) 9.9L, Monocytes (%) (Auto) 6.0, Eosinophils (%) (Auto) 8.2H, Basophils (%) (Auto) 1.0, Sodium Level 153H, Potassium Level 3.2L, Chloride Level 118H, Carbon Dioxide Level 28, Anion Gap 8, Blood Urea Nitrogen 31H, Creatinine 0.7, Estimat Glomerular Filtration Rate > 60, Glucose Level 151H , Calcium Level 8.2L, Total Bilirubin 0.4, Aspartate Amino Transf (AST/SGOT) 31 , Alanine Aminotransferase (ALT/SGPT) 64, Alkaline Phosphatase 60, Total Protein 7.4, Albumin 2.0L, Globulin 5.4, Albumin/Globulin Ratio 0.4L Height (Feet): 5 Height (Inches): 7.00 Weight (Pounds): 121 Objective WDWN NAD clear breath sounds bilaterally without rhonchi or wheeze [id number] without MRG NABS nontender no HSM no CCE nonfocal contractures trach and gt Subjective ROS Limited/Unobtainable: Yes Allergies: Coded Allergies: No Known Allergies (Unverified , 11/23/17) Objective Last 24 Hour Vital Signs Date Time Temp Pulse Resp B/P (MAP) Pulse Ox O2 Delivery O2 Flow Rate FiO2 12/20/19 17:24 68 24 45 12/20/19 16:00 68 12/20/19 16:00 Mechanical Ventilator 12/20/19 16:00 45 12/20/19 16:00 98.2 67 20 106/66 (79) 100 12/20/19 15:49 65 23 100 Mechanical Ventilator 45 63 19 45 12/20/19 13:26 63 25 Mechanical Ventilator 45 12/20/19 12:00 98.4 66 20 103/60 (74) 100 12/20/19 12:00 45 12/20/19 12:00 Mechanical Ventilator 12/20/19 11:36 69 12/20/19 10:48 68 26 100 Mechanical Ventilator 45 68 18 45 12/20/19 09:13 67 24 45 12/20/19 09:00 72 104/69 12/20/19 08:00 45 12/20/19 08:00 Mechanical Ventilator 12/20/19 08:00 98.6 71 24 104/69 (81) 100 12/20/19 07:47 66 12/20/19 07:26 69 23 100 Mechanical Ventilator 45 67 18 45 12/20/19 05:01 66 17 45 12/20/19 04:00 45 12/20/19 04:00 98.6 74 24 102/65 (77) 100 12/20/19 04:00 Mechanical Ventilator 12/20/19 03:26 69 12/20/19 02:45 67 22 100 Mechanical Ventilator 45 65 45 12/20/19 00:31 71 24 45 12/20/19 00:00 Mechanical Ventilator 12/20/19 00:00 45 12/20/19 00:00 77 12/20/19 00:00 99.0 77 26 112/65 (81) 100 12/19/19 22:41 76 27 100 Mechanical Ventilator 45 71 14 45 12/19/19 21:01 79 18 45 12/19/19 20:00 98.8 71 23 111/67 (82) 100 12/19/19 20:00 Mechanical Ventilator 12/19/19 20:00 45 12/19/19 19:39 76 12/19/19 18:39 71 20 100 Mechanical Ventilator 45 73 14 45 Intake and Output 12/19/19 12/20/19 18:59 06:59 Intake Total 2541.66 ml 2570.0 ml Output Total 675 ml 650 ml Balance 1866.66 ml 1920.0 ml Intake Free Water 100 ml 140 ml IV Total 1441.66 ml 1585.0 ml Tube Feeding 780 ml 845 ml Other 220 ml Output Urine Total 500 ml 550 ml Stool Total 175 ml 100 ml # Bowel Movements 3 3 Microbiology Date/Time Source Procedure Growth Status 12/17/19 19:45 Blood Blood Culture - Preliminary Gram Positive Cocci Resulted 12/17/19 19:30 Blood Blood Culture - Preliminary Gram Positive Cocci Resulted 12/18/19 04:00 Sputum Gram Stain - Final Resulted 12/18/19 04:00 Sputum Culture - Preliminary Gram Negative Bacillus 1 Gram Negative Bacillus 2 Resulted 12/17/19 20:00 Nasal Nares - Final Complete 12/17/19 20:00 Nasal Nares - Final Complete 12/17/19 19:30 Nasal Nares MRSA Culture - Final NO METHICILLIN RESISTANT STAPH AUREUS... Complete 12/18/19 04:00 Stool Clostridium difficile Toxin Assay - Final Complete 12/17/19 20:00 Urine,Clean Catch Urine Culture - Final YEAST Complete 12/17/19 19:30 Rectum - Final NO CARBAPENEM-RESISTANT ENTEROBACTERI... Complete 12/17/19 19:30 Rectum VRE Culture - Final Enterococcus Faecalis - Vre Complete Laboratory Tests 12/20/19 03:20: White Blood Count 8.5, Red Blood Count 2.76L, Hemoglobin 9.0L, Hematocrit 26.8L , Mean Corpuscular Volume 97, Mean Corpuscular Hemoglobin 32.5H, Mean Corpuscular Hemoglobin Concent 33.5, Red Cell Distribution Width 17.7H, Platelet Count 222, Mean Platelet Volume 9.0, Neutrophils (%) (Auto) 72.1, Lymphocytes (%) (Auto) 12.8L, Monocytes (%) (Auto) 6.4, Eosinophils (%) (Auto) 8.1H, Basophils (%) (Auto) 0.5, Sodium Level 145, Potassium Level 4.0, Chloride Level 112H, Carbon Dioxide Level 26, Anion Gap 7, Blood Urea Nitrogen 22H, Creatinine 0.6, Estimat Glomerular Filtration Rate > 60, Glucose Level 125H, Calcium Level 8.0L 12/20/19 10:15: Vancomycin Level Trough 14.7H Current Medications Medications (Trade) Dose Ordered Sig/Sara Route PRN Reason Start Time Stop Time Status Last Admin Dose Admin Acetaminophen (Tylenol) 640 mg Q6H PRN GT Mild Pain/Temp > 100.5 12/18/19 02:45 01/17/20 02:44 Al Hydroxide/Mg Hydroxide (Mylanta) 30 ml Q4H PRN GT Abdominal cramps 12/18/19 02:45 01/17/20 02:44 Albuterol Sulfate (Proventil) 2.5 mg Q4HRT HHN 12/18/19 03:00 12/23/19 02:59 12/20/19 15:50 Amlodipine Besylate (Norvasc) 10 mg DAILY GT 12/18/19 09:00 01/17/20 08:59 12/19/19 09:29 Ascorbic Acid (Vitamin C) 500 mg DAILY GT 12/18/19 09:00 01/17/20 08:59 12/20/19 09:29 Baclofen (Lioresal) 10 mg THREE TIMES A DAY GT 12/18/19 09:00 01/17/20 08:59 12/20/19 17:33 Dextrose (Dextrose 50%) 25 ml Q30M PRN IV Hypoglycemia 12/18/19 13:45 01/17/20 13:44 Dextrose (Dextrose 50%) 50 ml Q30M PRN IV Hypoglycemia 12/18/19 13:45 01/17/20 13:44 Dextrose/ Electrolytes 1,000 ml @ 100 mls/hr Q10H IV 12/18/19 08:00 01/17/20 07:59 12/20/19 17:33 Epoetin Aleksandar (Epoetin Aleksandar-EPBX(NON ESRD)) 10,000 unit WED-WED-WED SUBQ 12/18/19 21:00 01/17/20 20:59 12/18/19 20:15 Ferrous Sulfate (Feosol) 300 mg TID GT 12/18/19 09:00 01/17/20 08:59 12/20/19 17:33 Insulin Aspart (NovoLOG) Q6HR SUBQ 12/20/19 00:00 01/17/20 16:29 Lansoprazole (Prevacid) 30 mg DAILY GT 12/18/19 09:00 01/17/20 08:59 12/20/19 09:29 Magnesium Hydroxide (Mom) 30 ml DAILY PRN GT Constipation 12/18/19 02:45 01/17/20 02:44 Multivitamins (Multivitamins W/ Minerals 15ml Liquid) 15 ml DAILY GT 12/18/19 09:00 01/17/20 08:59 12/20/19 09:29 Ondansetron HCl (Zofran) 4 mg Q6H PRN GT Nausea & Vomiting 12/18/19 02:45 01/17/20 02:44 Piperacillin Sod/ Tazobactam Sod 3.375 gm/Sodium Chloride 110 ml @ 27.5 mls/hr Q8H IVPB 12/18/19 20:00 12/25/19 19:59 12/20/19 13:47 Saccharomyces Boulardii (Florastor) 250 mg TID GT 12/18/19 09:00 01/17/20 08:59 12/20/19 17:33 Sodium Hypochlorite (Dakin's Quarter Strength) 1 applic DAILY TOPIC 12/20/19 09:00 01/19/20 08:59 12/20/19 09:40 Vancomycin HCl (Vanco rx to dose) 1 ea DAILY PRN MISC Per rx protocol 12/18/19 01:30 01/17/20 01:29 Vancomycin HCl 750 mg/Sodium Chloride 275 ml @ 183.333 mls/hr Q12HR@1100,2300 IVPB 12/18/19 23:00 12/23/19 22:59 12/20/19 11:17 Everardo Tamez MD Dec 20, 2019 18:27
[2019-12-20 20:00] VITALS: BP 105/59
[2019-12-20] MEDS: Epoetin Alfa-EPBX (NON ESRD)10,000 unit/ml vial SUBQ SCH (20:05)
[2019-12-21] VITALS: BP 104/60
[2019-12-21] MEDS: Albuterol ud Inhalation HHN SCH ×4 (03:00→15:59)
[2019-12-21 04:00] VITALS: BP 117/74
[2019-12-21] MEDS: Piperacillin/Tazobactam 3.375 GM in NS 110 ML IVPB SCH (04:05)
[2019-12-21 04:54] LABS: BASOPHILS % (AUTO) 0.6 % (0.0-2.0); EOSINOPHILS % (AUTO) 7.9 % (0.0-3.0); HEMATOCRIT 26.8 % (42.0-52.0); MEAN CORPUSCULAR VOLUME 97 FL (80-99); MONOCYTES % (AUTO) 4.9 % (1.0-10.0); NEUTROPHILS % (AUTO) 74.6 % (45.0-75.0); PLATELET COUNT 245 K/UL (150-450); RED BLOOD COUNT 2.75 M/UL (4.70-6.10); RED CELL DISTRIBUTION WIDTH 17.6 % (11.6-14.8); WHITE BLOOD COUNT 9.4 K/UL (4.8-10.8)
[2019-12-21 05:25] LABS: ALANINE AMINOTRANSFERASE 37 U/L (12-78); ALBUMIN 1.9 G/DL (3.4-5.0); ALBUMIN/GLOBULIN RATIO 0.4 (1.0-2.7); ALKALINE PHOSPHATASE 58 U/L (46-116); ANION GAP 7 mmol/L (5-15); ASPARTATE AMINO TRANSFERASE 19 U/L (15-37); BILIRUBIN,TOTAL 0.3 MG/DL (0.2-1.0); BLOOD UREA NITROGEN 15 mg/dL (7-18); CALCIUM 8.3 MG/DL (8.5-10.1); CARBON DIOXIDE 27 MMOL/L (21-32); CHLORIDE 107 MMOL/L (98-107); CREATININE 0.6 MG/DL (0.55-1.30); POTASSIUM 3.7 MMOL/L (3.5-5.1); SODIUM 141 MMOL/L (136-145)
[2019-12-21] MEDS: D5W w/KCl 20mEq 1,000 ML IV SCH (05:50)
[2019-12-21] MEDS: NovoLOG Insulin Flexpen SUBQ SCH ×2 (06:00→11:50)
[2019-12-21 08:00] VITALS: BP 98/64
--- NOTE | 2019-12-21 09:00 | General Progress Note ---
Assessment/Plan Assessment/Plan: sepsis anemia bacteremia s/p transfusion severe protein calorie malnutrition trach GT contractures PLAN care noted anemia improved on antibiotics- vanco and cefepime add diflucon respiratory care wound management dc to snf impression, plan, and exam edited and reviewed in detail care discussed with RN Subjective ROS Limited/Unobtainable: Yes Allergies: Coded Allergies: No Known Allergies (Unverified , 11/23/17) Subjective doing poorly bcx+ yeast in urine Objective Last 24 Hour Vital Signs Date Time Temp Pulse Resp B/P (MAP) Pulse Ox O2 Delivery O2 Flow Rate FiO2 12/21/19 07:51 74 21 100 Mechanical Ventilator 45 72 21 45 12/21/19 04:33 69 21 45 12/21/19 04:00 45 12/21/19 04:00 97.3 75 22 117/74 (88) 98 12/21/19 04:00 78 12/21/19 04:00 Mechanical Ventilator 12/21/19 00:54 76 20 45 12/21/19 00:00 97.7 74 24 104/60 (75) 96 12/21/19 00:00 Mechanical Ventilator 12/21/19 00:00 72 12/20/19 23:30 74 22 97 Mechanical Ventilator 45 74 22 45 12/20/19 21:03 74 21 45 12/20/19 20:00 45 12/20/19 20:00 69 12/20/19 20:00 Mechanical Ventilator 12/20/19 20:00 97.7 71 23 105/59 (74) 99 12/20/19 19:24 67 21 97 Mechanical Ventilator 45 67 21 45 12/20/19 17:24 68 24 45 12/20/19 16:00 68 12/20/19 16:00 Mechanical Ventilator 12/20/19 16:00 45 12/20/19 16:00 98.2 67 20 106/66 (79) 100 12/20/19 15:49 65 23 100 Mechanical Ventilator 45 63 19 45 12/20/19 13:26 63 25 Mechanical Ventilator 45 12/20/19 12:00 98.4 66 20 103/60 (74) 100 12/20/19 12:00 45 12/20/19 12:00 Mechanical Ventilator 12/20/19 11:36 69 12/20/19 10:48 68 26 100 Mechanical Ventilator 45 68 18 45 12/20/19 09:13 67 24 45 12/20/19 09:00 72 104/69 Intake and Output 12/20/19 12/21/19 19:00 07:00 Intake Total 1180 ml 2251.874 ml Output Total 700 ml 2225 ml Balance 480 ml 26.874 ml Intake Free Water 300 ml 100 ml IV Total 100 ml 1371.874 ml Tube Feeding 780 ml 780 ml Output Urine Total 600 ml 1850 ml Stool Total 100 ml 375 ml # Bowel Movements 3 3 Laboratory Tests 12/20/19 10:15: Vancomycin Level Trough 14.7H 12/21/19 03:30: White Blood Count 9.4, Red Blood Count 2.75L, Hemoglobin 9.0L, Hematocrit 26.8L , Mean Corpuscular Volume 97, Mean Corpuscular Hemoglobin 32.6H, Mean Corpuscular Hemoglobin Concent 33.6, Red Cell Distribution Width 17.6H, Platelet Count 245, Mean Platelet Volume 7.9, Neutrophils (%) (Auto) 74.6, Lymphocytes (%) (Auto) 12.0L, Monocytes (%) (Auto) 4.9, Eosinophils (%) (Auto) 7.9H, Basophils (%) (Auto) 0.6, Erythrocyte Sedimentation Rate 122H, Sodium Level 141, Potassium Level 3.7, Chloride Level 107, Carbon Dioxide Level 27, Anion Gap 7, Blood Urea Nitrogen 15, Creatinine 0.6, Estimat Glomerular Filtration Rate > 60, Glucose Level 106, Calcium Level 8.3L, Total Bilirubin 0.3 , Aspartate Amino Transf (AST/SGOT) 19, Alanine Aminotransferase (ALT/SGPT) 37, Alkaline Phosphatase 58, C-Reactive Protein, Quantitative 3.5H, Total Protein 7.3, Albumin 1.9L, Globulin 5.4, Albumin/Globulin Ratio 0.4L Height (Feet): 5 Height (Inches): 7.00 Weight (Pounds): 152 Objective WDWN NAD clear breath sounds bilaterally without rhonchi or wheeze [id number] without MRG NABS nontender no HSM no CCE nonfocal contractures trach and gt Alexis Melo MD Dec 21, 2019 09:00
[2019-12-21] MEDS ORDERED: Fluconazole 100mg tab ORAL SCH (09:04)
[2019-12-21] MEDS ORDERED: Fluconazole 100mg tab GT SCH (09:05)
[2019-12-21] MEDS: Ferrous Sulfate 300 MG/5 ML UDC GT SCH ×2 (10:17→13:46)
[2019-12-21] MEDS: Dakin's 0.125% Soln (Quarter Strength) 16oz TOPIC SCH (10:18)
[2019-12-21] MEDS: Multivitamins W/Minerals 15 ML UDC GT SCH (10:19)
[2019-12-21] MEDS: Ascorbic Acid 500mg tab GT SCH (10:19)
[2019-12-21] MEDS ORDERED: Cefepime HCl 1 GM in D5W 55 ML IVPB SCH (11:00)
[2019-12-21] MEDS: Vancomycin 750 MG in NS 275 ML IVPB SCH (11:24)
[2019-12-21 12:00] VITALS: BP 114/62
--- NOTE | 2019-12-21 14:00 | Diagnostic Imaging Report ---
Indication: Dyspnea Comparison: 12/17/2019 A single view chest radiograph was obtained. Findings: Right hemidiaphragm is elevated. Platelike atelectasis demonstrated at the lung bases. Pneumonia at the left lung base is not excluded. Tracheostomy again noted. IMPRESSION: No change from the prior exam.
--- NOTE | 2019-12-21 15:39 | Surgery Progress Note ---
Surgery Progress Note Subjective Additional Comments ill appearing but comfortable labs reviewed cxr unchanged exam stable Objective Last 24 Hour Vital Signs Date Time Temp Pulse Resp B/P (MAP) Pulse Ox O2 Delivery O2 Flow Rate FiO2 12/21/19 12:58 80 24 45 12/21/19 12:19 80 12/21/19 12:00 98.2 80 19 114/62 (79) 100 12/21/19 12:00 45 12/21/19 12:00 Mechanical Ventilator 12/21/19 11:11 78 22 100 Mechanical Ventilator 45 75 21 45 12/21/19 10:18 74 98/64 12/21/19 09:11 76 24 45 12/21/19 08:00 77 12/21/19 08:00 Mechanical Ventilator 12/21/19 08:00 45 12/21/19 08:00 98.8 74 14 98/64 (75) 100 12/21/19 07:51 74 21 100 Mechanical Ventilator 45 72 21 45 12/21/19 04:33 69 21 45 12/21/19 04:00 45 12/21/19 04:00 97.3 75 22 117/74 (88) 98 12/21/19 04:00 78 12/21/19 04:00 Mechanical Ventilator 12/21/19 00:54 76 20 45 12/21/19 00:00 97.7 74 24 104/60 (75) 96 12/21/19 00:00 Mechanical Ventilator 12/21/19 00:00 72 12/20/19 23:30 74 22 97 Mechanical Ventilator 45 74 22 45 12/20/19 21:03 74 21 45 12/20/19 20:00 45 12/20/19 20:00 69 12/20/19 20:00 Mechanical Ventilator 12/20/19 20:00 97.7 71 23 105/59 (74) 99 12/20/19 19:24 67 21 97 Mechanical Ventilator 45 67 21 45 12/20/19 17:24 68 24 45 12/20/19 16:00 68 12/20/19 16:00 Mechanical Ventilator 12/20/19 16:00 45 12/20/19 16:00 98.2 67 20 106/66 (79) 100 12/20/19 15:49 65 23 100 Mechanical Ventilator 45 63 19 45 I&O Intake and Output 2/5/20 2/6/20 19:00 07:00 Intake Total 1180 ml 2251.874 ml Output Total 700 ml 2225 ml Balance 480 ml 26.874 ml Intake Free Water 300 ml 100 ml IV Total 100 ml 1371.874 ml Tube Feeding 780 ml 780 ml Output Urine Total 600 ml 1850 ml Stool Total 100 ml 375 ml # Bowel Movements 3 3 Dressing: saturated Wound: other Drains: other Cardiovascular: RSR Respiratory: decreased breath sounds Abdomen: soft, present bowel sounds, non-distended Extremities: no cyanosis Laboratory Tests Test 12/21/19 03:30 White Blood Count 9.4 K/UL (4.8-10.8) Red Blood Count 2.75 M/UL (4.70-6.10) L Hemoglobin 9.0 G/DL (14.2-18.0) L Hematocrit 26.8 % (42.0-52.0) L Mean Corpuscular Volume 97 FL (80-99) Mean Corpuscular Hemoglobin 32.6 PG (27.0-31.0) H Mean Corpuscular Hemoglobin Concent 33.6 G/DL (32.0-36.0) Red Cell Distribution Width 17.6 % (11.6-14.8) H Platelet Count 245 K/UL (150-450) Mean Platelet Volume 7.9 FL (6.5-10.1) Neutrophils (%) (Auto) 74.6 % (45.0-75.0) Lymphocytes (%) (Auto) 12.0 % (20.0-45.0) L Monocytes (%) (Auto) 4.9 % (1.0-10.0) Eosinophils (%) (Auto) 7.9 % (0.0-3.0) H Basophils (%) (Auto) 0.6 % (0.0-2.0) Erythrocyte Sedimentation Rate 122 MM/HR (0-20) H Sodium Level 141 MMOL/L (136-145) Potassium Level 3.7 MMOL/L (3.5-5.1) Chloride Level 107 MMOL/L (98-107) Carbon Dioxide Level 27 MMOL/L (21-32) Anion Gap 7 mmol/L (5-15) Blood Urea Nitrogen 15 mg/dL (7-18) Creatinine 0.6 MG/DL (0.55-1.30) Estimat Glomerular Filtration Rate > 60 mL/min (>60) Glucose Level 106 MG/DL (74-106) Calcium Level 8.3 MG/DL (8.5-10.1) L Total Bilirubin 0.3 MG/DL (0.2-1.0) Aspartate Amino Transf (AST/SGOT) 19 U/L (15-37) Alanine Aminotransferase (ALT/SGPT) 37 U/L (12-78) Alkaline Phosphatase 58 U/L (46-116) C-Reactive Protein, Quantitative 3.5 mg/dL (0.00-0.90) H Total Protein 7.3 G/DL (6.4-8.2) Albumin 1.9 G/DL (3.4-5.0) L Globulin 5.4 g/dL Albumin/Globulin Ratio 0.4 (1.0-2.7) L Plan Problems: (1) Feeding by G-tube Assessment & Plan: DAILY ESTIMATED NEEDS: Needs based on Critical Care, DM, Wounds,48.8kg 30-40 kcals/kg 0457-9253 total kcals 1.25-2 g protein/kg 61-98 g total protein 25-35ml/kcal mL/kg 1437-0235 total fluid mLs NUTRITION DIAGNOSIS: 1) Swallowing difficulty r/t respiratory status as evidenced by pt trach/vent & PEG dependent. 2) Increased kcal, protein, micronutrient needs r/t wound healing as evidenced by pt w/ multiple advanced wounds, refer to eval. CURRENT TF: Glucerna 1.5 @65 ml/hr ENTERAL NUTRITION RECOMMENDATIONS: Glucerna 1.5 @ 50ml/hr x 24hrs to provide 1200ml, 1800 kcal, 99g pro, 911ml free H2O - Advance by 10-15ml/hr every 4-6 hrs as tolerated to goal rate of 50ml/hr x 24hrs - HOB over 30 degrees/ flushes per MD ADDITIONAL RECOMMENDATIONS: 1) TF recs as above to not exceed est needs 2) Maintain calibrated bed scale wts 3) Wound healing: Yossi 1 pkt BID via PEG + ZN SO4 220mg daily x10 days 4) . 5) Monitor BG and need for added insulin (2) Status post tracheostomy Assessment & Plan: Respiratory insufficiency status post tracheostomy on vent support Chest x-ray ordered Palm input as per pulmonology (3) Decubitus skin ulcer Assessment & Plan: Pt presented on admission grossly unkempt, with contractures and multiple pressure injuries. Unstageable pressure injury L elbow . Base of wound is 90% soft necrosis with surrounding marginal slough. Erythematous borders . Non-blanchable erythema without induration or elevation in skin temp periwound. No odor noted.(L)3cm x ( W)3.8cm. DTPI's noted lateral R elbow(L)0.9cm x (W)1.3cm. Base of wound is indurated, purple with maroon borders.DTPI R elbow (L)1.5cm x (W)1.6cm.Base of wound is maroon with marginal erythema. Unstageable Sacral pressure injury that is malodorous . Base of wound 90% soft necrosis with surrounding marginal slough bordered by moist erythematous margins (L)8cm x (W)7cm. Periwound skin is dark and indurated. Unstageable Pressure injury L buttocks that is malodorous. Base of wound has 90 % soft necrosis,surrounding moist pink granulation. Periwound is dark without erythema or induration.(L)7.8cm x (W)8cm. DTPI noted to L trochanter. Base of wound is maroon and fluctuant with small area of hyperpigmentation in center. Periwound without no evidence of further skin breakdown.(L)(L)5.5cm x (W)5cm. Partial thickness pressure injury medial L knee. Base of wound is moist and pink. Edges adherent to base to base of wound .Periwound is clean and dry. Smaller abrasion noted to medial L thigh. Partially opened DTPI R heel. Base of wound is fluctuant purple with opening that is beefy red with small amt slough. No odor noted. Small amt sanguineous exudate noted.(L)2.4cm x (W)2cm. Stable dry eschar Plantar R foot .(L)2.5cm x (W)2cm. DTPI L heel. Base of wound is maroon and fluctuant (L)3.5cm x (W)3.1cm. Stable dry eschar medial R malleolus(L)0.5cm x (W)1cm. Tx.Plan: Cleanse sacral and L buttocks wounds with Dakin's nereyda. 0.125%. Apply Dakin's moistened Gazue over each wound. Apply Moisture Barrier paste periwound. Cover each wound with Optifoam drsg Daily and prn. Cleanse wound R and L elbows with Dakin's nereyda 0.125%. Apply Dakin's moist gauze to wound. Cover with Optifoam drsg. Change daily and prn. Apply Betadine to wounds L heel ,L malleolus .Cover with Optifoam drsg. Change every 3 days and prn. Apply Betadine to Plantar R foot , R heel. Cover with Optifoam drsg. change every 3 days and prn. Apply Cavilon Skin Barrier to L trochanter. Cover with Optifoam drsg. Change every 7 days and prn. Apply Betadine to wounds L knee and L thigh. Cover each wound with Optifoam drsg. Change every 3 days and prn. APM/EAMON Mattress. Reposition at least every 2hours or as tolerated. Off-load heels with Pillow. Position with pillow between knees . (4) Sepsis Assessment & Plan: Patient with leukocytosis, anemia, lactic acidosis. Abnormal labs. Improving with resuscitation improved IV fluids continue tube feeds AM labs will follow with Josué Gomez Dec 21, 2019 15:39
[2019-12-21 16:00] VITALS: BP 126/65
[2019-12-21] MEDS ORDERED: NS 275ml ONE (17:29)
[2019-12-21] MEDS ORDERED: Tubing IV Secondary IV ONE (17:29)
[2019-12-22] MEDS ORDERED: Zinc Sulfate 220mg cap ORAL SCH (09:00)
--- NOTE | 2019-12-22 22:06 | Discharge Summary ---
Discharge Summary Discharge Summary _ DATE OF ADMISSION: 12/17/2019 DATE OF DISCHARGE: 12/21/2019 DISCHARGED BY: Dr. Melo REASON FOR ADMISSION: 69 years old male with past medical history of hypertension, questionable GI bleeding, aspiration, dysphagia, G-tube, chronic respiratory failure with tracheostomy, anemia, chronic decubitus ulcer, contractures, was sent to emergency room for evaluation due to dyspnea. Patient was found to have low-grade fever, hypotension and tachypnea. Laboratory work-up revealed leukocytosis WBC 13.7 , anemia with hemoglobin 8.5 ,hematocrit 30.8, and evidence of dehydration with sodium 154 ,BUN 72 , creatinine 1.0. Glucose 135. Lactic acid 2.6. AST 49 , ALT 89. Troponin 0.008. EKG revealed sinus rhythm, no acute ischemic changes . Chest x-ray revealed right lower lobe atelectasis versus infiltrate . Urinalysis demonstrated evidence of urinary tract infection ABG revealed evidence of hypoxia on Septic work-up initiated ,patient pancultured, started on empiric antibiotics and fluid resuscitation , and admitted to stepdown unit for further management. [facility]ULT[facility] COURSE: Patient admitted to [facility]. Patient started on hypotonic IV fluids and empiric antibiotics. Blood culture revealed Staph hominis . Influenza swab was negative. Urine culture revealed yeast , and sputum culture revealed Providencia and Pseudomonas. Stool for C. difficile was negative. Antibiotic regimen was further optimized based on culture and sensitivity. Ventilator support and tracheostomy care provided. Settings titrated as needed. Leukocytosis resolved in 2 days. Renal parameters and electrolytes were closely monitored, electrolytes corrected as needed , and nephrotoxins were avoided. Patient developed anemia in the second day; hemoglobin 6.5, hematocrit 21.2. Patient received transfusion of 2 units of packed red blood cells. Stool for occult blood was negative. Hemoglobin and hematocrit were closely monitored with goal to keep hemoglobin above 7 ; prior to discharge hemoglobin 9, hematocrit 26.8. Wound care for multiply decubitus ulcers, present on admission , provided as per surgeon recommendation . Continue wound care at the facility. Strict aspiration precaution maintained. G-tube feeding with tube feeding formula, goal rate and protein supplements provided as per registered respiratory technician recommendation. Blood sugar was managed with sliding scale of insulin. Blood pressure was managed with calcium channel bridger. Prior to discharge sodium stabilized 141. Acute kidney injury resolved .BUN 15 , creatinine 0.5 . Acute kidney injury and hypernatremia were most likely due to dehydration. Patient clinically stabilized and was [facility] of care. FINAL DIAGNOSES: Sepsis Bacteremia Possible pneumonia Fungal UTI Anemia , requiring blood transfusion Chronic ventilator dependent respiratory failure , tracheostomy status Dysphagia, feeding by G-tube Severe protein calorie malnutrition Hypernatremia , likely due to dehydration Multiple decubitus ulcers, present on admission Contractures DISCHARGE MEDICATIONS: List of medication was sent to accepting facility DISCHARGE INSTRUCTIONS: Patient was discharged to the prison facility. Follow up with medical doctor at the facility. I have been assigned to dictate discharge summary for this account. I was not involved in the patient's management. Tita Hernandez NP Dec 22, 2019 22:06
== END 2019-12-21 17:30 | DRG 871 ==
LOC: EDBD 19:21 → EMR 20:45 → 2W 22:36 → EDBEDREQ 22:59
PROC: 5A1945Z Respiratory Ventilation, 24-96 Consecutive Hours (ICD-10-PCS; principal; 2019-12-17)
DX: A41.9 Sepsis, unspecified organism (principal); L89.023 Pressure ulcer of left elbow, stage 3; L89.223 Pressure ulcer of left hip, stage 3; L89.523 Pressure ulcer of left ankle, stage 3; L89.893 Pressure ulcer of other site, stage 3; E43 Unspecified severe protein-calorie malnutrition; J18.9 Pneumonia, unspecified organism; N39.0 Urinary tract infection, site not specified; E87.0 Hyperosmolality and hypernatremia; K92.2 Gastrointestinal hemorrhage, unspecified; Z68.1 Body mass index [BMI] 19.9 or less, adult; N17.9 Acute kidney failure, unspecified; J96.10 Chronic respiratory failure, unspecified whether with hypoxia or hypercapnia; Z99.11 Dependence on respirator [ventilator] status; B49 Unspecified mycosis; L89.150 Pressure ulcer of sacral region, unstageable; I95.9 Hypotension, unspecified; Z93.0 Tracheostomy status; Z93.1 Gastrostomy status; Z68.23 Body mass index [BMI] 23.0-23.9, adult; M24.50 Contracture, unspecified joint; E86.0 Dehydration
CPT/HCPCS: 36415; 36600; 71045; 80048; 80053; 80202; 81003; 82270; 82550; 82553; 82803; 82962; 83605; 83690; 83880; 84484; 85007; 85025; 85651; 86140; 86710; 86850; 86900; 86901; 86920; 87040; 87070; 87081; 87086; 87181; 87205; 87324; 93005; 94002; 94003; 96365; 99291; J1815